=== PATIENT | female | born 1965 | race African-American/Black ===

== ENCOUNTER 2018-05-31 10:53 | Inpatient (IN) | payer OTHER ==
[2018-05-31 11:27] VITALS: BMI 26.8
--- NOTE | 2018-05-31 13:35 | HP ---
CIWA Score Nausea/Vomitin-No Nausea/No Vomiting Muscle Tremors: 2 Anxiety: 3 Agitation: 0-Normal Activity Paroxysmal Sweats: No Perspiration Orientation: 0-Oriented Tacttile Disturbances: 1-Very Mild Itch/Numbness Auditory Disturbances: 0-None Visual Disturbances: 0-None Headache: 4-Moderately Severe (rates pain as " alot of pain") CIWA-Ar Total Score: 10 - Admission Criteria OASAS Guidelines: Admission for Medically Managed Detox: Requires at least one of the followin. CIWA greater than 12 2. Seizures within the past 24 hours 3. Delirium tremens within the past 24 hours 4. Hallucinations within the past 24 hours 5. Acute intervention needed for co occurring medical disorder 6. Acute intervention needed for co occurring psychiatric disorder 7. Severe withdrawal that cannot be handled at a lower level of care (continued vomiting, continued diarrhea, abnormal vital signs) requiring intravenous medication and/or fluids 8. Patient presents the following: Acute intervention needed for co-occurring med or psych disorder Admission Criteria Met: Admission criteria met Admission ROS [facility] Chief Complaint: " alcohol detox" Allergies/Adverse Reactions: Allergies Allergy/AdvReac Type Severity Reaction Status Date / Time aspirin Allergy Severe Hives Verified 05/31/18 12:03 History of Present Illness: 52 yo female wit hx of alcohol, crack /cocaine and marijuana dependence is here seeking alcohol detox. PMHX: fx right leg (2018), DM II, Hyperlipidemia, asthma. Psych: depression, PTSD. Reports was abstinent for two years and relapsed this past March 2018. utox positive for THC, BERRY, BZO, denies use of bzo or recently hospitalization or emergency room visit. Exam Limitations: No Limitations - Ebola screening Have you traveled outside of the country in the last 21 days: No Have you had contact with anyone from an Ebola affected area: No Have you been sick,other than usual withdrawal symptoms: No Do you have a fever: No - Review of Systems Constitutional: Loss of Appetite, Changes in sleep, Weakness, Unintentional Wgt. Loss (11 lbs lost past 2- 3 weeks), Other (fatigue) EENT: reports: Nose Congestion, Other (glaucoma right eye) Respiratory: reports: No Symptoms reported Cardiac: reports: No Symptoms Reported GI: reports: No Symptoms Reported : reports: No Symptoms Reported Musculoskeletal: reports: Back Pain (low back pain), Joint Pain (right LE d/t old fx to (r) tibia) Integumentary: reports: No Symptoms Reported Neuro: reports: Headache Endocrine: reports: Increased Thirst Hematology: reports: No Symptoms Reported Psychiatric: reports: Orientated x3, Anxious Other Systems: Reviewed and Negative Patient History - Patient Medical History Hx Anemia: No Hx Asthma: Yes Hx Chronic Obstructive Pulmonary Disease (COPD): No Hx Cancer: No Hx Cardiac Disorders: No Hx Congestive Heart Failure: No Hx Hypertension: No Hx Hypercholesterolemia: No Hx Pacemaker: No HX Cerebrovascular Accident: No Hx Seizures: No Hx Dementia: No Hx Diabetes: Yes Hx Gastrointestinal Disorders: No Hx Liver Disease: No Hx Genitourinary Disorders: No Hx Sexually Transmitted Disorders: Yes (herpes 89 was treated, syphillis 1991 was treated.) Hx Renal Disease (ESRD): No Hx Thyroid Disease: No Hx Human Immunodeficiency Virus (HIV): No Hx Hepatitis C: No Hx Depression: Yes Hx Suicide Attempt: Yes (last attempt 2012 , hospitalized , now medicated ) Hx Bipolar Disorder: No Hx Schizophrenia: No - Patient Surgical History Past Surgical History: Yes Hx Neurologic Surgery: No Hx Cataract Extraction: No Hx Cardiac Surgery: No Hx Lung Surgery: Yes (collapsed lung 4x, last experience and surgery 2007) Hx Breast Surgery: No Hx Breast Biopsy: No Hx Abdominal Surgery: No Hx Appendectomy: No Hx Cholecystectomy: No Hx Genitourinary Surgery: No Hx Section: Yes (Fx right tibia June 2017) Hx Orthopedic Surgery: Yes (both feet bunions.) Anesthesia Reaction: No - PPD History Previous Implant?: No (Treated for TB 1996 tx with INH x 9 months, NEG Chest xray 2014) Documented Results: Positive w/o proof PPD to be Administered?: No - Reproductive History Patient is a Female of Child Bearing Age (11 -55 yrs old): Yes Last Menstrual Period: 09/16/14 Patient : No - Smoking Cessation Smoking history: Former smoker Have you smoked in the past 12 months: Yes Aproximately how many cigarettes per day: 5 If you are a former smoker, when did you quit?: 2018 Hx Chewing Tobacco Use: No Initiated information on smoking cessation: No - Substance & Tx. History Hx Alcohol Use: Yes Hx Substance Use: Yes Substance Use Type: Alcohol, Cocaine Hx Substance Use Treatment: Yes (Last detox September 2014) - Substances Abused Alcohol Route: Oral Frequency: Daily Amount used: 2 + 1/2 pt. liquor Age of first use: 14 Date of Last Use: 05/31/18 Crack Route: Inhalation Frequency: Daily Amount used: $200 per day Age of first use: 16 Date of Last Use: 05/31/18 Marijuana/Hashish Route: Smoking Frequency: Daily Amount used: $20 Age of first use: 14 Date of Last Use: 05/31/18 Family Disease History - Family Disease History Family Disease History: Other: Brother ( kidney failure ) Admission Physical Exam [facility] - Vital Signs Vital Signs: Vital Signs - 24 hr 05/31/18 11:25 Temperature 97.7 F Pulse Rate 92 H Respiratory 20 Rate Blood Pressure 134/84 - Physical General Appearance: Yes: Appropriately Dressed, Mild Distress, Anxious HEENTM: Yes: EOMI, Hearing grossly Normal, Normal ENT Inspection, Pharynx Normal , Tm's normal Respiratory: Yes: Chest Non-Tender, Lungs Clear, Normal Breath Sounds, No Respiratory Distress Neck: Yes: Within Normal Limits Breast: Yes: Breast Exam Deferred Cardiology: Yes: Regular Rhythm, Regular Rate Abdominal: Yes: Normal Bowel Sounds, Non Tender, Soft, Protuberent Genitourinary: Yes: Within Normal Limits Back: Yes: Normal Inspection Musculoskeletal: Yes: full range of Motion, Gait Steady, Pelvis Stable, Back pain, Other (uses cane) Extremities: Yes: Normal Capillary Refill, Normal Inspection, Normal Range of Motion, Non-Tender Neurological: Yes: 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, Fully Oriented, Alert, Motor Strength 5/5, Depressed Affect Integumentary: Yes: Normal Color, Warm, Diaphoresis Lymphatic: Yes: Within Normal Limits - Diagnostic (1) Alcohol dependence with withdrawal Current Visit: Yes Status: Acute Qualifiers: Complication of substance-induced condition: uncomplicated Qualified Code(s ): F10.230 - Alcohol dependence with withdrawal, uncomplicated (2) Use of cane as ambulatory aid Current Visit: Yes Status: Chronic (3) Type 2 diabetes mellitus without complications Current Visit: Yes Status: Chronic Qualifiers: Diabetes mellitus group home insulin use: without group home use Qualified Code(s): E11.9 - Type 2 diabetes mellitus without complications (4) Glaucoma Current Visit: Yes Status: Chronic Qualifiers: Open angle glaucoma type: unspecified type (5) Asthma Current Visit: Yes Status: Chronic Qualifiers: Asthma complication type: unspecified (6) Cocaine dependence Current Visit: Yes Status: Chronic Cleared for Admission [facility] - Detox or Rehab [facility] Level of Care: Medically Managed Detox Regimen/Protocol: Librium BHS Breath Alcohol Content Breath Alcohol Content: 0 Urine Pregancy Test - Result Urine Test Results: Negative - NO line present Urine Drug Screen - Results Drug Screen Negative: No Urine Drug Screen Results: THC-Marijuana, BERRY-Cocaine, BZO-Benzodiazepines Inpatient Rehab Admission - Rehab Decision to Admit Inpatient rehab admission?: No
[2018-05-31] MEDS ORDERED: MAG HYDROX/AL HYDROX/SIMETH 30 ML UNIT-DOSE CUP PO PRN (13:48)
[2018-05-31] MEDS ORDERED: MAGNESIUM HYDROX 2400MG/30ML ORAL SUSPENSION 30 ML CUP PO PRN (13:48)
[2018-05-31] MEDS ORDERED: MAGNESIUM CITRATE 300 ML BOTTLE PO PRN (13:48)
[2018-05-31] MEDS ORDERED: chlordiazePOXIDE HCL 25 MG CAPSULE PO PRN (13:48)
[2018-05-31] MEDS ORDERED: hydrOXYzine PAMOATE 25 MG CAPSULE (FP) PO PRN (13:48)
[2018-05-31] MEDS ORDERED: MENTHOL/PHENOL 1 EACH UD MM PRN (13:48)
[2018-05-31] MEDS ORDERED: ACETAMINOPHEN 325 MG TABLET (FP) PO PRN (13:48)
[2018-05-31] MEDS: chlordiazePOXIDE HCL 25 MG CAPSULE PO SCH ×2 (16:29→22:16)
[2018-05-31] MEDS: ACETAMINOPHEN 325 MG TABLET (FP) PO PRN ×2 (16:29→22:17)
[2018-05-31] MEDS ORDERED: metFORMIN HCL 500 MG TABLET (FP) PO SCH (17:45)
[2018-05-31] MEDS: metFORMIN HCL 500 MG TABLET (FP) PO SCH (18:46)
[2018-05-31] MEDS: IBUPROFEN 400 MG TABLET (FP) PO PRN (21:30)
[2018-05-31] MEDS: THIAMINE HCL 100 MG TABLET (FP) PO SCH (22:16)
[2018-05-31] MEDS: MELATONIN 5 MG TABLETS PO PRN (22:19)
--- NOTE | 2018-05-31 22:42 | PN ---
S Progress Note Note: Patient complained of tooth ache Vital Signs Temperature 98 F 05/31/18 21:04 Pulse Rate 85 05/31/18 21:04 Respiratory Rate 16 05/31/18 21:04 Blood Pressure 127/73 05/31/18 21:04 O2 Sat by Pulse Oximetry (%) Action: Lidocaine 2% viscous 20mL MM TID prn ordered
[2018-05-31] MEDS: LIDOCAINE VISCOUS 2% ORAL/TOP 20 ML UNIT-DOSE CUP MM PRN (23:03)
[2018-06-01] MEDS: chlordiazePOXIDE HCL 25 MG CAPSULE PO SCH ×4 (05:13→22:08)
[2018-06-01] MEDS: ACETAMINOPHEN 325 MG TABLET (FP) PO PRN ×3 (05:14→21:40)
[2018-06-01] MEDS: LIDOCAINE VISCOUS 2% ORAL/TOP 20 ML UNIT-DOSE CUP MM PRN (05:15)
[2018-06-01] MEDS: metFORMIN HCL 500 MG TABLET (FP) PO SCH ×2 (07:31→17:11)
[2018-06-01] MEDS: IBUPROFEN 400 MG TABLET (FP) PO PRN (08:23)
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
[2018-06-01] MEDS: METHOCARBAMOL 500 MG TABLET PO PRN ×3 (10:08→21:42)
[2018-06-01] MEDS: PRENATAL VITAMINS W/ FOLIC ACID TABLET (FP) PO SCH (10:08)
--- NOTE | 2018-06-01 11:03 | EKG ---
Test Reason : Blood Pressure : / mmHG Vent. Rate : 083 BPM Atrial Rate : 083 BPM P-R Int : 152 ms QRS Dur : 092 ms QT Int : 410 ms P-R-T Axes : 081 061 041 degrees QTc Int : 481 ms NORMAL SINUS RHYTHM POSSIBLE LEFT ATRIAL ENLARGEMENT INCOMPLETE RIGHT BUNDLE BRANCH BLOCK PROLONGED QT ABNORMAL ECG NO PREVIOUS ECGS AVAILABLE Confirmed by GLENNA STEPHENS MD ([id number]) on 06/01/2018 11:02:40 AM Referred By: Confirmed By:GLENNA STEPHENS MD
[2018-06-01 11:12] LABS: HEMATOCRIT 37.2 % (32.4-45.2); HEMOGLOBIN 12.9 GM/dL (10.7-15.3); MCH 28.7 pg (25.7-33.7); MCHC 34.7 g/dl (32.0-36.0); MEAN CELL VOLUME 82.7 fl (80-96); PLATELET COUNT 414 K/MM3 (134-434); RBC 4.49 M/mm3 (3.60-5.2); RDW 14.6 % (11.6-15.6); WHITE BLOOD COUNT 9.8 K/mm3 (4.0-10.0)
--- NOTE | 2018-06-01 11:39 | PN ---
S CIWA - CIWA Score Nausea/Vomitin-No Nausea/No Vomiting Muscle Tremors: 1-None Visible, but [place] Anxiety: 2 Agitation: 1-Slight > Activity Paroxysmal Sweats: 1-Minimal Palms Moist Orientation: 1-Uncertain about Date Tacttile Disturbances: 0-None Auditory Disturbances: 0-None Visual Disturbances: 0-None Headache: 2-Mild CIWA-Ar Total Score: 8 BHS Progress Note (SOAP) Subjective: denies tooth ache, chew regular food patient is doing well with the alcohol detox regimen Objective: 06/01/18 11:40 Vital Signs Temperature 97.4 F L 06/01/18 10:07 Pulse Rate 68 06/01/18 10:07 Respiratory Rate 18 06/01/18 10:07 Blood Pressure 102/63 06/01/18 10:07 O2 Sat by Pulse Oximetry (%) Laboratory Last Values WBC 9.8 K/mm3 (4.0-10.0) 06/01/18 06:30 RBC 4.49 M/mm3 (3.60-5.2) 06/01/18 06:30 Hgb 12.9 GM/dL (10.7-15.3) 06/01/18 06:30 Hct 37.2 % (32.4-45.2) 06/01/18 06:30 MCV 82.7 fl (80-96) 06/01/18 06:30 MCH 28.7 pg (25.7-33.7) 06/01/18 06:30 MCHC 34.7 g/dl (32.0-36.0) 06/01/18 06:30 RDW 14.6 % (11.6-15.6) 06/01/18 06:30 Plt Count 414 K/MM3 (134-434) 06/01/18 06:30 MPV 9.0 fl (7.5-11.1) 06/01/18 06:30 POC Glucometer 112 UNITS (80-120) 06/01/18 05:13 lab noted Assessment: 06/01/18 11:40 alcohol withdrawal sx Plan: continue detox
[2018-06-01 12:09] LABS: RPR REACTIVE 1:1 (NONREACTIVE)
[2018-06-01 12:11] LABS: TREPONEMA ANTIBODY PREVIOUSLY REACTIVE (NONREACTIVE)
[2018-06-01] MEDS: FLUoxetine HCL 10 MG CAPSULE (FP) PO SCH (12:43)
[2018-06-01 12:48] LABS: ALK PHOS 91 U/L (45-117); BILIRUBIN,TOTAL 0.4 mg/dL (0.2-1); CALCIUM 9.4 mg/dL (8.5-10.1); CHLORIDE 101 mmol/L (98-107); CREATININE 0.9 mg/dL (0.55-1.3); POTASSIUM 3.7 mmol/L (3.5-5.1); SGPT/ALT 17 U/L (13-61); SODIUM 136 mmol/L (136-145)
[2018-06-01 13:44] LABS: ALBUMIN 3.8 g/dl (3.4-5.0); ANION GAP 7 MMOL/L (8-16); BLOOD UREA NITROGEN 12 mg/dL (7-18); CO2 28 mmol/L (21-32); GLUCOSE,RANDOM 147 mg/dL (74-106); SGOT/AST 15 U/L (15-37)
[2018-06-01] MEDS: CLOTRIMAZOLE 1% VAGINAL CREAM WITH APPLICATOR 45 GM TUBE VG SCH (22:08)
[2018-06-01] MEDS: THIAMINE HCL 100 MG TABLET (FP) PO SCH (22:08)
[2018-06-01] MEDS: MIRTAZAPINE 15 MG TABLET (FP) PO SCH (22:08)
[2018-06-01] MEDS: MELATONIN 5 MG TABLETS PO PRN (22:09)
[2018-06-02] MEDS: chlordiazePOXIDE HCL 25 MG CAPSULE PO SCH ×2 (06:14→10:16)
[2018-06-02] MEDS: metFORMIN HCL 500 MG TABLET (FP) PO SCH ×2 (07:00→17:40)
[2018-06-02] MEDS: FLUoxetine HCL 10 MG CAPSULE (FP) PO SCH (10:16)
[2018-06-02] MEDS: PRENATAL VITAMINS W/ FOLIC ACID TABLET (FP) PO SCH (10:16)
[2018-06-02] MEDS: ACETAMINOPHEN 325 MG TABLET (FP) PO PRN (10:17)
--- NOTE | 2018-06-02 15:50 | PN ---
S CIWA - CIWA Score Nausea/Vomitin Muscle Tremors: None Anxiety: 2 Agitation: 0-Normal Activity Paroxysmal Sweats: No Perspiration Orientation: 0-Oriented Tacttile Disturbances: 2-Mild Itch/Numbness/Burn Auditory Disturbances: 0-None Visual Disturbances: 2-Mild Sensitivity Headache: 0-None Present CIWA-Ar Total Score: 9 BHS Progress Note (SOAP) Subjective: Tremors, Fatigue, Nausea. Objective: PATIENT A & O X 3. IN NO ACUTE DISTRESS. 06/02/18 15:51 Vital Signs Temperature 98 F 06/02/18 13:45 Pulse Rate 97 H 06/02/18 13:45 Respiratory Rate 16 06/02/18 13:45 Blood Pressure 106/76 06/02/18 13:45 O2 Sat by Pulse Oximetry (%) Laboratory Tests 05/31/18 06/01/18 06/01/18 16:20 05:13 06:30 WBC 9.8 RBC 4.49 Hgb 12.9 Hct 37.2 MCV 82.7 MCH 28.7 MCHC 34.7 RDW 14.6 Plt Count 414 MPV 9.0 Sodium Potassium Chloride Carbon Dioxide Anion Gap BUN Creatinine Creat Clearance w eGFR POC Glucometer 120 112 Random Glucose Calcium Total Bilirubin AST ALT Alkaline Phosphatase Total Protein Albumin RPR Titer T.pallidum Ab (MHA) 06/01/18 06/01/18 06/01/18 06:30 06:30 16:29 WBC RBC Hgb Hct MCV MCH MCHC RDW Plt Count MPV Sodium 136 Potassium 3.7 Chloride 101 Carbon Dioxide 28 Anion Gap 7 L BUN 12 Creatinine 0.9 Creat Clearance w eGFR 66.01 POC Glucometer 148 Random Glucose 147 H Calcium 9.4 Total Bilirubin 0.4 AST 15 ALT 17 Alkaline Phosphatase 91 Total Protein 8.0 Albumin 3.8 RPR Titer Reactive 1:1 H T.pallidum Ab (MHA) Previously reactive 06/02/18 06:11 WBC RBC Hgb Hct MCV MCH MCHC RDW Plt Count MPV Sodium Potassium Chloride Carbon Dioxide Anion Gap BUN Creatinine Creat Clearance w eGFR POC Glucometer 135 Random Glucose Calcium Total Bilirubin AST ALT Alkaline Phosphatase Total Protein Albumin RPR Titer T.pallidum Ab (MHA) LABS NOTED. RPR RESULT NOTED TO BE REACTIVE 1:1; MHATP: PREVIOUSLY REACTIVE. ON ADMISSION, PATIENT REPORTED THAT SHE COMPLETED A COURSE OF ANTIBIOTIC TREATMENT FOR SYPHILIS IN THE PAST. 06/02/18 15:52 Assessment: 06/02/18 15:54 WITHDRAWAL SYMPTOMS. Plan: CONTINUE DETOX.
[2018-06-02] MEDS ORDERED: chlordiazePOXIDE HCL 10 MG CAPSULE PO PRN (17:00)
[2018-06-02] MEDS: chlordiazePOXIDE HCL 10 MG CAPSULE PO SCH ×2 (17:40→22:11)
[2018-06-02] MEDS: THIAMINE HCL 100 MG TABLET (FP) PO SCH (22:11)
[2018-06-02] MEDS: MIRTAZAPINE 15 MG TABLET (FP) PO SCH (22:11)
[2018-06-02] MEDS: CLOTRIMAZOLE 1% VAGINAL CREAM WITH APPLICATOR 45 GM TUBE VG SCH (22:12)
[2018-06-03] MEDS: chlordiazePOXIDE HCL 10 MG CAPSULE PO SCH ×3 (05:49→17:46)
[2018-06-03] MEDS: metFORMIN HCL 500 MG TABLET (FP) PO SCH ×2 (07:57→17:46)
[2018-06-03] MEDS: FLUoxetine HCL 10 MG CAPSULE (FP) PO SCH (10:22)
[2018-06-03] MEDS: PRENATAL VITAMINS W/ FOLIC ACID TABLET (FP) PO SCH (10:22)
--- NOTE | 2018-06-03 15:40 | PN ---
BHS Progress Note (SOAP) Subjective: Fatigue, Anxious. Objective: PATIENT A & O X 3, OBSERVED AMBULATING ON UNIT. IN NO ACUTE DISTRESS. 06/03/18 15:36 Vital Signs Temperature 98.4 F 06/03/18 13:42 Pulse Rate 75 06/03/18 13:42 Respiratory Rate 18 06/03/18 13:42 Blood Pressure 119/70 06/03/18 13:42 O2 Sat by Pulse Oximetry (%) Laboratory Tests 05/31/18 06/01/18 06/01/18 16:20 05:13 06:30 WBC 9.8 RBC 4.49 Hgb 12.9 Hct 37.2 MCV 82.7 MCH 28.7 MCHC 34.7 RDW 14.6 Plt Count 414 MPV 9.0 Sodium Potassium Chloride Carbon Dioxide Anion Gap BUN Creatinine Creat Clearance w eGFR POC Glucometer 120 112 Random Glucose Calcium Total Bilirubin AST ALT Alkaline Phosphatase Total Protein Albumin RPR Titer T.pallidum Ab (MHA) 06/01/18 06/01/18 06/01/18 06:30 06:30 16:29 WBC RBC Hgb Hct MCV MCH MCHC RDW Plt Count MPV Sodium 136 Potassium 3.7 Chloride 101 Carbon Dioxide 28 Anion Gap 7 L BUN 12 Creatinine 0.9 Creat Clearance w eGFR 66.01 POC Glucometer 148 Random Glucose 147 H Calcium 9.4 Total Bilirubin 0.4 AST 15 ALT 17 Alkaline Phosphatase 91 Total Protein 8.0 Albumin 3.8 RPR Titer Reactive 1:1 H T.pallidum Ab (MHA) Previously reactive 06/02/18 06/02/18 06/03/18 06:11 16:20 05:47 WBC RBC Hgb Hct MCV MCH MCHC RDW Plt Count MPV Sodium Potassium Chloride Carbon Dioxide Anion Gap BUN Creatinine Creat Clearance w eGFR POC Glucometer 135 107 125 Random Glucose Calcium Total Bilirubin AST ALT Alkaline Phosphatase Total Protein Albumin RPR Titer T.pallidum Ab (MHA) LABS NOTED. Assessment: 06/03/18 15:37 WITHDRAWAL SYMPTOMS. Plan: CONTINUE DETOX. RESULTS OF ADMISSION CXR (FOR HISTORY OF POSITIVE PPD) NOTED. NO ACUTE PROCESS NOTED; HOWEVER, CHRONIC DEGENERATIVE CHANGES NOTED. PATIENT MADE AWARE OF RESULTS AND ADVISED TO FOLLOW-UP WITH [facility] SPECIALIST WHEN POSSIBLE AFTER DISCHARGE FROM DETOX FOR FURTHER MEDICAL; EVALUATION. PATIENT VERBALIZED UNDERSTANDING OF RECOMMENDATION. COPY OF CXR RESULTS REPORTS GIVEN TO PATIENT TO TAKE WITH HER. PATIENT SCHEDULED FOR D/C TOMORROW.
[2018-06-03] MEDS: THIAMINE HCL 100 MG TABLET (FP) PO SCH (22:14)
[2018-06-03] MEDS: MELATONIN 5 MG TABLETS PO PRN (22:14)
[2018-06-03] MEDS: MIRTAZAPINE 15 MG TABLET (FP) PO SCH (22:14)
[2018-06-03] MEDS: CLOTRIMAZOLE 1% VAGINAL CREAM WITH APPLICATOR 45 GM TUBE VG SCH (22:15)
[2018-06-04] MEDS: ACETAMINOPHEN 325 MG TABLET (FP) PO PRN (05:45)
[2018-06-04] MEDS: chlordiazePOXIDE HCL 10 MG CAPSULE PO SCH (05:45)
[2018-06-04] MEDS: LIDOCAINE VISCOUS 2% ORAL/TOP 20 ML UNIT-DOSE CUP MM PRN (05:46)
[2018-06-04 06:24] VITALS: BP 118/69; PULSE 66; TEMP 97.9
[2018-06-04] MEDS: metFORMIN HCL 500 MG TABLET (FP) PO SCH (07:19)
--- NOTE | 2018-06-04 09:54 | DS ---
[facility] Detox Discharge Summary Admission Date: 05/31/18 Discharge Date: 06/04/18 - History Present History: Alcohol Dependence Additional Comments: 52 years old female admitted on 05/31/18 for alcohol withdrawal stabilization completed detox regimen [facility] Pertinent Past History: keep medication list in wallet medication adherence update medication list when change medication bring in medication list and lab results to follow up care - Physical Exam Results Vital Signs: Vital Signs Temperature 97.9 F 06/04/18 06:24 Pulse Rate 66 06/04/18 06:24 Respiratory Rate 18 06/04/18 06:28 Blood Pressure 118/69 06/04/18 06:24 O2 Sat by Pulse Oximetry (%) Pertinent Admission Physical Exam Findings: alcohol withdrawal sx Laboratory Last Values WBC 9.8 K/mm3 (4.0-10.0) 06/01/18 06:30 RBC 4.49 M/mm3 (3.60-5.2) 06/01/18 06:30 Hgb 12.9 GM/dL (10.7-15.3) 06/01/18 06:30 Hct 37.2 % (32.4-45.2) 06/01/18 06:30 MCV 82.7 fl (80-96) 06/01/18 06:30 MCH 28.7 pg (25.7-33.7) 06/01/18 06:30 MCHC 34.7 g/dl (32.0-36.0) 06/01/18 06:30 RDW 14.6 % (11.6-15.6) 06/01/18 06:30 Plt Count 414 K/MM3 (134-434) 06/01/18 06:30 MPV 9.0 fl (7.5-11.1) 06/01/18 06:30 Sodium 136 mmol/L (136-145) 06/01/18 06:30 Potassium 3.7 mmol/L (3.5-5.1) 06/01/18 06:30 Chloride 101 mmol/L (98-107) 06/01/18 06:30 Carbon Dioxide 28 mmol/L (21-32) 06/01/18 06:30 Anion Gap 7 MMOL/L (8-16) L 06/01/18 06:30 BUN 12 mg/dL (7-18) 06/01/18 06:30 Creatinine 0.9 mg/dL (0.55-1.3) 06/01/18 06:30 Creat Clearance w eGFR 66.01 (>60) 06/01/18 06:30 POC Glucometer 160 UNITS (80-120) 06/04/18 05:44 Random Glucose 147 mg/dL (74-106) H 06/01/18 06:30 Calcium 9.4 mg/dL (8.5-10.1) 06/01/18 06:30 Total Bilirubin 0.4 mg/dL (0.2-1) 06/01/18 06:30 AST 15 U/L (15-37) 06/01/18 06:30 ALT 17 U/L (13-61) 06/01/18 06:30 Alkaline Phosphatase 91 U/L (45-117) 06/01/18 06:30 Total Protein 8.0 g/dl (6.4-8.2) 06/01/18 06:30 Albumin 3.8 g/dl (3.4-5.0) 06/01/18 06:30 RPR Titer Reactive 1:1 (NONREACTIVE) H 06/01/18 06:30 T.pallidum Ab (MHA) Previously reactive (NONREACTIVE) 06/01/18 06:30 lab noted - Treatment Hospital Course: Detox Protocol Followed, Detoxed Safely, Responded well, Discharged Condition Good, Rehab Referral Accepted Patient has Accepted a Rehab Referral to: [facility] - Medication Discharge Medications: Ambulatory Orders Fluoxetine HCl [Prozac -] 20 mg PO DAILY 10/10/14 Mirtazapine [Remeron -] 15 mg PO DAILY 05/31/18 metFORMIN HCL [Metformin HCl] 500 mg PO BID 30 Days #60 tablet 06/03/18 - Diagnosis (1) Asthma Status: Chronic Qualifiers: Asthma severity: mild Asthma persistence: intermittent Asthma complication type: with status asthmaticus Qualified Code(s): J45.22 - Mild intermittent asthma with status asthmaticus (2) Substance induced mood disorder Status: Suspected (3) Alcohol dependence with withdrawal Status: Acute Qualifiers: Complication of substance-induced condition: uncomplicated Qualified Code(s ): F10.230 - Alcohol dependence with withdrawal, uncomplicated (4) Use of cane as ambulatory aid Status: Chronic (5) Type 2 diabetes mellitus without complications Status: Chronic Qualifiers: 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
== END 2018-06-04 09:41 | disposition home or self-care (01) | DRG 774 ==
LOC: YASAS 10:53 → Y3N 14:00
PROVIDERS: ADMIT Surgery; ATTEND Surgery
PROC: HZ2ZZZZ Detoxification Services for Substance Abuse Treatment (ICD-10-PCS; principal; 2018-05-31)
DX: F10.230 Alcohol dependence with withdrawal, uncomplicated (principal); F14.20 Cocaine dependence, uncomplicated; F19.24 Other psychoactive substance dependence with psychoactive substance-induced mood disorder; F19.282 Other psychoactive substance dependence with psychoactive substance-induced sleep disorder; F32.9 Major depressive disorder, single episode, unspecified; H40.9 Unspecified glaucoma; R26.89 Other abnormalities of gait and mobility; E11.9 Type 2 diabetes mellitus without complications; Z79.84 Long term (current) use of oral hypoglycemic drugs; M54.5 Low back pain; Z99.89 Dependence on other enabling machines and devices; Z86.19 Personal history of other infectious and parasitic diseases; Z91.5 Personal history of self-harm; Z59.0 Homelessness
CPT/HCPCS: 36415; 71046-TC-FY; 80053; 82962; 85027; 86593; 86780; 93005; 93010

== ENCOUNTER 2019-12-28 11:06 | Inpatient (IN) | payer OTHER ==
--- OUTSIDE RECORDS SUMMARY | 2019-12-28 11:13 | XMS ---
:1965 Author Organization [facility] Care Team Providers Name Role Phone Carolann Jean (R) Unavailable SHANE Unavailable Unavailable KAMINSKI Unavailable Unavailable NURSING, FM Unavailable Unavailable KELLIE, (R) Unavailable Unavailable Aminta Unavailable Aska Unavailable Moreland Unavailable Moreland Unavailable Brayman Unavailable RADOCCHIO Unavailable Unavailable DENTAL Unavailable Unavailable ANDREW-LORA Unavailable Unavailable Yapor Unavailable Re-disclosure Warning The records that you are about to access may contain information from federally- assisted alcohol or drug abuse programs. If such information is present, then the following federally mandated warning applies: This information has been disclosed to you from records protected by federal confidentiality rules (42 CFR part 2). The federal rules prohibit you from making any further disclosure of this information unless further disclosure is expressly permitted by the written consent of the person to whom it pertains or as otherwise permitted by 42 CFR part 2. A general authorization for the release of medical or other information is NOT sufficient for this purpose. The Federal rules restrict any use of the information to criminally investigate or prosecute any alcohol or drug abuse patient.The records that you are about to access may contain highly sensitive health information, the redisclosure of which is protected by Article 27-F of the [facility] Public Health law. If you continue you may haveaccess to information: Regarding HIV / AIDS; Provided by facilities licensed or operated by the [facility] Office of Mental Health; or Provided by the [facility] Office for People With Developmental Disabilities. If such information is present, then the following [facility] mandated warning applies: This information has been disclosed to you from confidential records which are protected by state law. State law prohibits you from making any further disclosure of this information without the specific written consent of the person to whom it pertains, or as otherwise permitted by law. Any unauthorized further disclosure in violation of state law may result in a fine or [place] health care facility sentence or both. A general authorization for the release of medical or other information is NOT sufficient authorization for further disclosure. Allergies and Adverse Reactions Type Description Substance Reaction Status Data Source(s ) DRUG INGREDI ASPIRIN DL-LYSINE ASPIRIN DL-LYSINE [facility] DRUG ASPIRIN ASPIRIN [facility] Encounters Encounter Providers Location Date Indications Data Source(s ) Outpatient Attender: Isabel [facility] [facility] EDT Patient admitted. Outpatient Attender: OFELIA 12/26/2019 09:14:20 AM [facility] Patient admitted. Outpatient Attender: BILLIE LYNN 12/16/2019 02:07:33 PM The [facility] Patient admitted. Outpatient Attender: Lexi 12/11/2019 12:00:00 AM The [facility] - 12/11/2019 [facility] 10:53:13 AM EDT Patient admitted. Outpatient Attender: BILLIE LYNN 12/09/2019 12:00:00 AM The [facility] - 12/09/2019 [facility] ealt 02:29:44 PM EDT Patient admitted. Outpatient Attender: Lexi 12/03/2019 03:02:53 PM The [facility] Patient admitted. Outpatient Attender: Lexi 12/03/2019 12:00:00 AM The [facility] Patient admitted. Outpatient Attender: BEV JONES 11/26/2019 12:00:00 AM The [facility] - 11/26/2019 12:39:14 [facility] EDT Patient admitted. Outpatient Attender: Luma Moreland 11/21/2019 12:00:00 AM The [facility] Patient admitted. Outpatient Attender: BILLIE LYNN 11/18/2019 02:13:18 PM The [facility] Patient admitted. Outpatient Attender: BILLIE LYNN 11/11/2019 12:00:00 AM The [facility] - 11/11/2019 [facility] ealt 02:29:54 PM EDT Patient admitted. Outpatient Attender: BILLIE LYNN 11/04/2019 02:12:52 PM The [facility] Patient admitted. Outpatient Attender: Lexi 10/29/2019 12:00:00 AM The [facility] - 10/29/2019 [facility] ealt 04:39:27 PM EDT Patient admitted. Outpatient Attender: Lexi 10/29/2019 12:00:00 AM The [facility] Patient admitted. Outpatient Attender: BILLIE LYNN 10/28/2019 12:00:00 AM The [facility] Patient admitted. Outpatient Attender: Isabel 10/24/2019 12:00:00 AM The [facility]: [facility] DENTAL Patient admitted. Outpatient Attender: Lexi 10/22/2019 01:05:20 PM The [facility] Patient admitted. Outpatient Attender: Lexi 10/22/2019 12:00:00 AM The [facility] Patient admitted. Outpatient Attender: BILLIE LYNN 10/21/2019 01:42:35 PM The [facility] Patient admitted. Outpatient Attender: Frederick Greene 10/11/2019 12:00:00 AM The [facility] - 10/11/2019 [facility] ealt 12:31:17 PM EDT Patient admitted. Outpatient Attender: Lexi 10/04/2019 12:00:00 AM The [facility] Patient admitted. Outpatient Attender: BILLIE LYNN 09/30/2019 12:00:00 AM The [facility] 2019 [facility] ealt 11:17:55 AM EDT Patient admitted. Outpatient Attender: Isabel Layne 09/12/2019 12:00:00 AM The [facility] Patient admitted. Outpatient Attender: BILLIE LYNN 09/09/2019 02:43:35 PM The [facility] Patient admitted. Outpatient Attender: BILLIE LYNN 09/02/2019 12:00:00 AM The [facility] Patient admitted. Outpatient Attender: Lexi 08/29/2019 10:26:12 AM The [facility] Patient admitted. Outpatient Attender: Lexi 08/29/2019 12:00:00 AM The [facility] Patient admitted. Outpatient Attender: Lexi 08/28/2019 12:00:00 AM [facility] - 08/28/2019 [facility] 09:34:03 AM EDT Patient admitted. Outpatient Attender: Lexi 08/20/2019 03:06:46 PM The [facility] Patient admitted. Outpatient Attender: Lexi 08/20/2019 12:00:00 AM The [facility] Patient admitted. Outpatient Attender: BILLIE LYNN 08/19/2019 12:00:00 AM The [facility] - 08/19/2019 [facility] 02:45:51 PM EDT Patient admitted. Outpatient Attender: CHARLIE 08/18/2019 03:41:[address] [facility] Patient admitted. Outpatient Attender: BILLIE LYNN 08/12/2019 02:37:44 PM The [facility] Patient admitted. Outpatient Attender: BILLIE LYNN 08/05/2019 12:00:00 AM The [facility] - 08/05/2019 [facility] 03:21:21 PM EDT Patient admitted. Outpatient Attender: BILLIE LYNN 07/22/2019 12:00:00 AM The [facility] 07/22/2019 [facility] 03:27:17 PM EDT Patient admitted. Outpatient Attender: CHARLIE 07/21/2019 03:19:37 PM The [facility] Patient admitted. Outpatient Attender: BILLIE LYNN 07/15/2019 12:00:00 AM The [facility] Patient admitted. Outpatient Attender: BILLIE LYNN 07/08/2019 02:10:53 PM The [facility] Patient admitted. Outpatient Attender: BILLIE LYNN 07/01/2019 12:00:00 AM The [place] [facility] EDT - 07/01/2019 [facility] 10:58:59 PM EDT Patient admitted. Outpatient Attender: BILLIE LYNN 06/24/2019 12:00:00 AM The [place] [facility] EDT - 06/24/2019 [facility] 09:02:45 PM EDT Patient admitted. Outpatient Attender: BILLIE LYNN 06/17/2019 12:00:00 AM The [place] [facility] EDT - 06/17/2019 [facility] 10:57:55 PM EDT Patient admitted. Outpatient Attender: BILLIE LYNN 06/10/2019 12:00:00 AM The [facility] EDT - 06/10/2019 [facility] 08:05:20 PM EDT Patient admitted. Outpatient Attender: BILLIE LYNN 06/03/2019 12:00:00 AM The [facility] Patient admitted. Outpatient Attender: BILLIE LYNN 05/27/2019 12:00:[facility] 10:12:55 PM EDT Patient admitted. Outpatient Attender: BILLIE LYNN 05/20/2019 12:00:00 AM The [facility] EST - 05/20/2019 [facility] 03:04:52 PM EDT Patient admitted. Outpatient Attender: BILLIE LYNN 05/13/2019 12:00:00 AM The [place] [facility] EST - 05/13/2019 [facility] 04:45:07 PM EST Patient admitted. Outpatient Attender: Lexi 05/07/2019 12:00:00 AM The [facility] EST - 05/07/2019 [facility] 09:50:21 AM EST Patient admitted. Outpatient Attender: BILLIE LYNN 05/06/2019 12:00:00 AM The [place] [facility] EST - 05/07/2019 [facility] 09:44:08 AM EST Patient admitted. Outpatient Attender: BILLIE LYNN 04/22/2019 12:00:00 AM The [place] [facility] EST - 04/22/2019 [facility] 05:04:37 PM EST Patient admitted. Outpatient Attender: BILLIE LYNN 04/15/2019 01:50:21 PM The [place] [facility] EST - 04/15/2019 [facility] 11:45:34 PM EST Patient admitted. Outpatient Attender: Krista 04/13/2019 08:37:48 AM The [facility] Patient admitted. Outpatient Attender: BILLIE LYNN 04/08/2019 12:00:00 AM The [facility] 04/08/2019 [facility] ealth 09:55:04 PM EST Patient admitted. Outpatient Attender: BEV JONES 03/26/2019 12:00:00 AM The [facility] 03/26/2019 05:53:12 Family [facility] PM EST Patient admitted. Outpatient Attender: BILLIE LYNN 03/25/2019 12:00:00 AM The [facility] 03/25/2019 [facility] ealth 10:12:37 PM EST Patient admitted. Outpatient Attender: CHARLIE 03/22/2019 07:40:42 PM The [facility] Patient admitted. Outpatient Attender: Lexi 03/19/2019 03:32:[address] [facility] Patient admitted. Outpatient Attender: Lexi 03/19/2019 12:00:[address] [facility] Patient admitted. Outpatient Attender: BILLIE LYNN 03/11/2019 12:00:00 AM The [facility] 04/04/2019 [facility] ealth 08:05:03 AM EST Patient admitted. Outpatient Attender: CHARLIE 03/10/2019 03:01:41 PM The [facility] Patient admitted. Outpatient Attender: CHARLIE 03/10/2019 02:09:33 PM The [facility] Patient admitted. Attender: Carolann 03/06/2019 03:31:07 PM The [facility] Outpatient Attender: BILLIE LYNN 03/04/2019 12:00:00 AM The [facility] 03/04/2019 [facility] 04:03:06 PM EST Patient admitted. Outpatient Attender: BEV JONES 03/02/2019 02:08:39 PM The [facility] Patient admitted. Outpatient Attender: Lexi 02/26/2019 01:26:[address] [facility] Patient admitted. Outpatient Attender: BILLIE LYNN 02/25/2019 12:00:00 AM The [facility] Patient admitted. Outpatient Attender: BILLIE LYNN 02/11/2019 12:00:00 AM The [facility] - 02/11/2019 [facility] ealt 05:49:30 PM EST Patient admitted. Outpatient Attender: BEV JONES 02/06/2019 07:34:41 PM The [facility] Patient admitted. Outpatient Attender: DRAKE 02/06/2019 02:37:43 PM The [facility] h Patient admitted. Outpatient Attender: BILLIE LYNN 02/04/2019 12:00:00 AM The [facility] Patient admitted. Outpatient Attender: Lexi 02/02/2019 12:00:[address] [facility] Patient admitted. Outpatient Attender: BEV JONES 01/30/2019 04:39:44 PM The [facility] 01/30/2019 08:12:05 Family Health PM EST Patient admitted. Outpatient Attender: BILLIE LYNN 01/28/2019 04:24:12 PM The [facility] Patient admitted. Outpatient Attender: BILLIE LYNN 01/21/2019 12:00:00 AM The [facility] 01/21/2019 [facility] ealt 03:15:02 PM EST Patient admitted. Outpatient Attender: BILLIE LYNN 01/20/2019 08:04:53 AM The [facility] Patient admitted. Outpatient Attender: BEV 01/17/2019 12:00:[facility] 01/17/2019 [facility] NURSING 12:51:18 PM EST Patient admitted. Outpatient Attender: BILLIE LYNN 01/14/2019 12:00:00 AM The [facility] 01/14/2019 Family ealt 03:38:47 PM EST Patient admitted. Outpatient Attender: BILLIE LYNN 01/07/2019 12:00:00 AM The [facility] - 01/20/2019 [facility] 08:02:55 AM EST Patient admitted. Outpatient Attender: BILLIE LYNN 12/31/2018 12:00:00 AM The [facility] - 12/31/2018 [facility] 11:37:57 AM EDT Patient admitted. Immunizations Vaccine Date Status Description Data Source(s) Influenza, 11/26/2019 completed Influenza, 11/26/2019 The injectable, 12:00:00 AM Injectable,(cciiv4), [place] MDCK, EDT Quadrivalent, For Corwin bello preservative Preservative Free Health free, quadrivalent Medications Medication Brand Start Product Dose Route Administrative Pharmacy [facility] Indications Reaction Description Data Name Date Form Instructions Instructions Source(s) Mirtazapine Mirtaz 15 mg Oral active Post Take O NE The 15 MG Oral apine 2020 traumatic tablet ( 15 [place] Tablet (REMER 12:00: stress mg total) by For Family Mirtazapine ON) 15 00 AM disorder mouth daily Health (REMERON) MG EDT 15 MG Oral Oral Tab Tab Post traumatic stress disorder aripiprazole 5 Aripiprazole 5 12/11/[address] Take The MG Oral Tablet MG Oral Tab 12:00:00 AM mg trauma tic ONE [place] Aripiprazole 5 EDT stress tablet F or Family MG Oral Tab disorder (5 mg Hea lth total) by mouth daily Post traumatic stress disorder Mirtazapine Mirtazapine 10/29/2019 15 Oral aborted Post Take The 15 MG Oral (REMERON) 15 12:00:00 AM mg traumatic ONE [place] Tablet MG Oral Tab EDT stress tablet Fo r Family Mirtazapine disorder (15 mg He alth (REMERON) 15 total) MG Oral Tab by mouth daily Post traumatic stress disorder aripiprazole 5 Aripiprazole 10/29/2019 5 Oral aborted Pos t Take The MG Oral Tablet 5 MG Oral Tab 12:00:00 AM mg trau matic ONE [place] Aripiprazole 5 EDT stress tablet F or Family MG Oral Tab disorder (5 mg Hea lth total) by mouth daily Post traumatic stress disorder ammonium Ammonium 10/11/2019 active Eczema, M ix with The lactate 120 Lactate 12 % 12:00:00 AM unspecif ied vaseline [place] MG/ML Apply EDT type and apply For Fami ly Topical externally bid Health Lotion Lotion Ammonium Lactate 12 % Apply externally Lotion Eczema, unspecified type Clotrimazole clotrimazole 1 10/11/2019 active Veronika a Apply The 10 MG/ML % Apply 12:00:00 AM pedis inter digitally [place] Topical externally EDT of bid as dire cted For Family Solution external both Health clotrimazole 1 solution feet % Apply externally external solution Tinea pedis of both feet Mirtazapine Mirtazapine 05/07/2019 15 Oral active Post Take The 15 MG Oral (REMERON) 15 12:00:00 AM mg traumatic ONE [place] Tablet MG Oral Tab EST stress tablet Fo r Family Mirtazapine disorder (15 mg He alth (REMERON) 15 total) MG Oral Tab by mouth daily Post traumatic stress disorder Take ONE tablet (15 mg total) by mouth d aily aripiprazole 5 Aripiprazole 05/07/2019 5 Oral aborted Pos t Take The MG Oral Tablet 5 MG Oral Tab 12:00:00 AM mg trau matic ONE [place] Aripiprazole 5 EST stress tablet F or Family MG Oral Tab disorder (5 mg Hea lth total) by mouth daily Post traumatic stress disorder Take ONE tablet (5 mg total) by mouth da eros 24 HR buPROPion 05/07/2019 150 Oral aborted Post Take The Bupropion HCl ER, XL, 12:00:00 AM mg traumatic ONE [place] Hydrochloride (WELLBUTRIN EST stress ta blet For Family 150 MG XL) 150 MG disorder (150 mg Health Extended Oral TABLET total) Release Oral SR 24 HR by Tablet mouth buPROPion HCl daily ER, XL, (WELLBUTRIN XL) 150 MG Oral TABLET SR 24 HR Post traumatic stress disorder Take ONE tablet (150 mg total) by mouth daily Metformin metFORMIN 04/13/2019 500 Oral completed Pre-diabe zohreh Take The hydrochloride HCl 500 MG 12:00:00 AM mg ONE [place] 500 MG Oral Oral Tab EST tablet Fo r Family Tablet (500 mg Health metFORMIN HCl total) 500 MG Oral by Tab mouth 2 (two) times a day Pre-diabetes Take ONE tablet (500 mg total) by mouth 2 (two) times a day Metformin metFORMIN 03/26/2019 500 Oral completed Pre-diabe zohreh Take The hydrochloride HCl 500 MG 12:00:00 AM mg ONE [place] 500 MG Oral Oral Tab EST tablet Fo r Family Tablet (500 mg Health metFORMIN HCl total) 500 MG Oral by Tab mouth 2 (two) times a day Pre-diabetes Take ONE tablet (500 mg total) by mouth 2 (two) times a day Mirtazapine Mirtazapine 03/19/2019 15 Oral completed Post Take The 15 MG Oral (REMERON) 15 12:00:00 AM mg traumatic ONE [place] Tablet MG Oral Tab EST stress tablet Fo r Family Mirtazapine disorder (15 mg He alth (REMERON) 15 total) MG Oral Tab by mouth daily Post traumatic stress disorder Take ONE tablet (15 mg total) by mouth d aily Prazosin 1 prazosin 1 03/19/2019 1 mg Oral completed Post Take ONE The MG Oral MG Oral 12:00:00 AM traumatic ca psule [place] Capsule capsule EST stress (1 mg For Corwin bello prazosin 1 disorder total) Hea lth MG Oral by mouth capsule nightly Post traumatic stress disorder Take ONE capsule (1 mg total) by mouth n ight[place] aripiprazole Aripiprazole 03/19/2019 5 Oral completed Pos t Take The 5 MG Oral 5 MG Oral Tab 12:00:00 AM mg traumatic ONE [place] Tablet EST stress tablet For Famil y Aripiprazole disorder (5 mg He alth 5 MG Oral Tab total) by mouth daily Post traumatic stress disorder Take ONE tablet (5 mg total) by mouth da eros aripiprazole Aripiprazole 02/02/2019 5 Oral completed Pos t Take The 5 MG Oral 5 MG Oral Tab 12:00:00 AM mg traumatic ONE [place] Tablet EST stress tablet For Famil y Aripiprazole disorder (5 mg He alth 5 MG Oral Tab total) by mouth daily Post traumatic stress disorder Take ONE tablet (5 mg total) by mouth da eros Mirtazapine Mirtazapine 02/02/2019 15 Oral completed Post Take The 15 MG Oral (REMERON) 15 12:00:00 AM mg traumatic ONE [place] Tablet MG Oral Tab EST stress tablet Fo r Family Mirtazapine disorder (15 mg He alth (REMERON) 15 total) MG Oral Tab by mouth daily Post traumatic stress disorder Take ONE tablet (15 mg total) by mouth bc palacio Prazosin 1 prazosin 1 02/02/2019 1 mg Oral completed Post Take ONE The MG Oral MG Oral 12:00:00 AM traumatic ca psule [place] Capsule capsule EST stress (1 mg For Corwin talberty prazosin 1 disorder total) Hea lth MG Oral by mouth capsule nightly Post traumatic stress disorder Take ONE capsule (1 mg total) by mouth n ightlsung Cephalexin Cephalexin 01/28/2019 500 Oral completed Take The 500 MG Oral 500 MG Oral 12:00:00 AM mg 500 mg [place] Capsule Cap EST by For Family mouth Health Take 500 mg by mouth Acetaminophen acetaminophen 01/17/2019 650 Oral compl eted Right knee Take TWO The 325 MG Oral (TYLENOL) 325 12:00:00 AM mg pain, tablets [place] Tablet MG Oral tablet EST unspecified ( 650 mg For Family acetaminophen chronicity total ) Health (TYLENOL) 325 by mouth MG Oral tablet every 6 (six) hours as needed for mild pain Right knee pain, unspecified chronicity Take TWO tablets (650 mg total) by mouth every 6 (six) hours as needed for mild pain Prazosin 1 MG prazosin 1 MG 12/13/2018 active The Oral Capsule Oral capsule 12:00:00 AM [place] prazosin 1 MG EDT For Fa eguenia Oral capsule Health aripiprazole 5 Aripiprazole 5 12/13/2018 completed The MG Oral Tablet MG Oral Tab 12:00:00 AM [place] Aripiprazole 5 EDT For F amily MG Oral Tab Health Metformin metFORMIN HCl 06/03/2018 completed Metformin The hydrochloride 500 MG Oral 12:00:00 AM HCl 500 MG [place] 500 MG Oral Tab EDT For Fami ly Tablet Health metFORMIN HCl 500 MG Oral Tab Metformin HCl 500 MG Mirtazapine 15 Mirtazapine 05/31/2018 aborted daily The [place] MG Oral Tablet (REMERON) 15 MG 12:00:00 AM For Family Mirtazapine Oral Tab EDT Heal th (REMERON) 15 MG Oral Tab daily 24 HR Bupropion BuPROPion 02/10/2015 300 Oral aborted Depre ssion Take The Hydrochloride HCl 300 MG 12:00:00 AM mg ONE [place] 300 MG Extended Oral EST tablet Fo r Family Release Oral TABLET SR (300 mg Health Tablet 24 HR total) BuPROPion HCl by 300 MG Oral mouth TABLET SR 24 HR daily Depression Take ONE tablet (300 mg total) by mouth daily Aspirin 81 MG aspirin 81 MG completed daily The [place] For Delayed Release Oral EC tablet Family Health Oral Tablet aspirin 81 MG Oral EC tablet daily Insurance Providers Payer name Policy type Policy ID Covered Covered democrat's Policy P stewart / Coverage democrat ID relationship to Germ[place] Inf ormation type germain [employer] MEDICAID [id number] COMM PLAN [facility] [id number] Self [id number] [facility] [id number] Self [id number] [facility] [id number] Self [id number] HEALTHCARE [place] PLUS [id number] Self [id number] SLIDING FEE [id number] Self [id number] SLIDING FEE 000 Self 000 MEDICAID OR [id number] Self [id number] [place] [id number] Self [id number] MEDICAID OR [id number] Self [id number] [place] [id number] Self [id number] [place] [id number] Self [id number] [place] [id number] HEALTHCARE Mgd Care [place] Medicaid [id number] HEALTHCARE Mgd Care [facility] [id number] Self [id number] [facility]ARE [facility] [id number] Self [id number] HEALTHCARE [place] PLUS [id number] Self [id number] MET[place] PLUS [id number] Self [id number] [facility] [id number] SP [id number] STRGY-AFF [facility] [id number] SP [id number] STRGY-AFF Problems, Conditions, and Diagnoses Code Display Name Description Problem Type Effective Data Dates Source(s) F12.21 Cannabis use Cannabis use [id number] 02/02/2019 The disorder, moderate, disorder, moderate, 12:00:0 0 AM [place] in early remission, in early remission, EST For Family dependence dependence Health R45.851 Suicidal ideation Suicidal ideation [id number] 01/07/2019 The 12:00:00 AM [place] EDT For [facility] F17.200 Tobacco use Tobacco use [id number] 12/31/2018 The disorder, mild, disorder, mild, 12:00:00 AM Ins tit[place] abuse abuse EDT For [facility] F14.20 Cocaine use Cocaine use [id number] 12/31/2018 The disorder, moderate, disorder, moderate, 12:00:0 0 AM [place] dependence dependence EDT For [facility] 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 [id number] 12/31/2018 The stress disorder stress disorder 12:00:00 AM Ins titute EDT For [facility] F14.20 Cocaine use Cocaine use [id number] 12/31/2018 The disorder, moderate, disorder, moderate, 12:00:0 0 AM [place] dependence dependence EDT For [facility] Dental Appliance Dental Appliance Diagnosis 12/27/2019 Th e 09:25:56 AM [place] EDT For [facility] Z71.89 Other specified Other specified Diagnosis 12/26/2019 The counseling counseling 09:14:25 AM [place] EDT For [facility] R73.03 Prediabetes Prediabetes Diagnosis 12/26/2019 The 09:14:25 AM [place] EDT For [facility] Missed Appointment Missed Appointment Diagnosis 0 The 02:07:33 PM [place] EDT For [facility] Knee Pain Knee Pain Diagnosis 11/26/2019 The 09:34:01 AM [place] EDT For [facility] Forms Forms Diagnosis 11/26/2019 The 09:34:01 AM [place] EDT For [facility] Physical Physical Diagnosis 11/26/2019 The 09:34:01 AM [place] EDT For [facility] Other Other Diagnosis 11/26/2019 The 09:34:01 AM [place] EDT For [facility] Z23 Encounter for Encounter for Diagnosis 11/26/2019 The immunization immunization 09:34:01 AM [place] EDT For [facility] Z00.00 Encounter for Encounter for Diagnosis 11/26/2019 The general adult general adult 09:34:01 AM Institu te medical examination medical examination EDT For Family without abnormal without abnormal He alth findings findings Z53.20 Procedure and Procedure and Diagnosis 11/20/2019 The treatment not treatment not 01:53:38 PM Institu te carried out because carried out because EDT For Family of patient's of patient s Health decision for decision for unspecified reasons unspecified reasons Virtual Visit Virtual Visit Diagnosis 10/28/2019 The (Telephone Only) (Telephone Only) 03:38:53 PM I nstitute EDT For [facility] Treatment Plan Treatment Plan Diagnosis 10/28/2019 The Review Review 03:38:53 PM [place] EDT For [facility] Reschedule Reschedule Diagnosis 10/21/2019 The Appointment Appointment 01:42:35 PM [place] ED[place] For [facility] S99.929A Unspecified injury Unspecified injury Diagnosis 0 The of unspecified foot, of unspecified foot, 09:59 :20 AM [place] initial encounter initial encounter EDT For [facility] B35.3 Tinea pedis Tinea pedis Diagnosis 10/11/2019 The 09:59:20 AM [place] ED[place] For [facility] L30.9 Dermatitis, Dermatitis, Diagnosis 10/11/2019 The unspecified unspecified 09:59:20 AM [place] EDT For [facility] B35.1 Tinea unguium Tinea unguium Diagnosis 10/11/2019 The 09:59:20 AM [place] EDT For [facility] L84 Corns and Corns and Diagnosis 10/11/2019 The callosities callosities 09:59:20 AM [place] EDT For [facility] S92.901A Unspecified fracture Unspecified fracture Diagnosis 10/10 The of right foot, of right foot, 09:59:20 AM Insti nidia initial encounter initial encounter EDT For Family for closed fracture for closed fracture Health F14.20 Cocaine dependence, Cocaine dependence, Diagnosis 020 The uncomplicated uncomplicated 02:22:04 PM Institu te EDT For Family Health F12.21 Cannabis dependence, Cannabis dependence, Diagnosis 08/18 The in remission in remission 02:25:07 PM [place] EDT For Family Health F17.200 Nicotine dependence, Nicotine dependence, Diagnosis 08/18 The unspecified, unspecified, 02:24:21 PM [place] uncomplicated [facility] F14.21 Cocaine dependence, Cocaine dependence, Diagnosis 020 The in remission in remission 02:23:34 PM [place] EDT For [facility] Clinical Supervision Clinical Supervision Diagnosis 08/17 The 03:41:19 PM [place] EDT For [facility] F32.9 Major depressive Major depressive Diagnosis 05/07/2019 Th e disorder, single disorder, single 08:55:37 AM I nstitute episode, unspecified episode, unspecified EST For Family Health Z12.31 Encounter for Encounter for Diagnosis 03/26/2019 The screening mammogram screening mammogram 01:49:5 5 PM [place] for malignant for malignant EST For [facility] ly neoplasm of breast neoplasm of breast Health Z12.39 Encounter for other Encounter for other Diagnosis 020 The screening for screening for 01:49:55 PM Institu te malignant neoplasm malignant neoplasm EST For Family of breast of breast Health Follow-up for: Follow-up for: Diagnosis 03/26/2019 The 01:49:55 PM [place] EST For [facility] Refill Request Refill Request Diagnosis 03/19/2019 The 03:32:24 PM [place] EST For [facility] Outreach Outreach Diagnosis 02/26/2019 The 01:26:16 PM [place] EST For [facility] Lab Results Lab Results Diagnosis 02/06/2019 The 07:34:41 PM [place] EST For [facility] F12.20 Cannabis dependence, Cannabis dependence, Diagnosis 02/02 The uncomplicated uncomplicated 11:34:32 AM Institu te EST For [facility] Psychiatric Psychiatric Diagnosis 02/02/2019 The Evaluation Evaluation 10:53:17 AM [place] EST For [facility] G89.29 Other chronic pain Other chronic pain Diagnosis 9 The 04:39:44 PM [place] EST For [facility] M25.561 Pain in right knee Pain in right knee Diagnosis 9 The 04:39:44 PM [place] EST For [facility] Z12.11 Encounter for Encounter for Diagnosis 01/30/2019 The screening for screening for 04:39:44 PM Institu te malignant neoplasm malignant neoplasm EST For Family of colon of colon Health Z11.4 Encounter for Encounter for Diagnosis 01/30/2019 The screening for human screening for human 04:39:4 4 PM [place] immunodeficiency immunodeficiency EST Fo r Family virus [HIV] virus (HIV) Health Emergency Room Visit Emergency Room Visit Diagnosis 01/28 The Follow Up Follow Up 04:24:12 PM [place] EST For [facility] Enrollment Enrollment Diagnosis 01/20/2019 The 08:04:53 AM [facility] F43.10 Post-traumatic Post-traumatic Diagnosis 12/31/2018 The stress disorder, stress disorder, 04:55:33 PM I nstitute unspecified unspecified EDT For [facility] Psychosocial Psychosocial Diagnosis 12/31/2018 The 10:59:56 AM [place] EDT For [facility] Surgeries/Procedures Procedure Description Date Indications Data Source(s) FLUCELVAX, FLUCELVAX, Routine 11/26/2019 Need for 11/26/2019 Nee d for The INFLUENZA, INFLUENZA, 10:59 AM prophylactic 10:59:35 AM prophylactic [place] CCIIV4, CCIIV4, EDT vaccination EDT vaccination For Family PSRV FREE, PSRV FREE, and and He alth 4YRS+, 0.5 4YRS+, 0.5 inoculation inocul ation ML, ML, against against PREFILLED PREFILLED influenza influenza SYRINGE SYRINGE Need for prophylactic vaccination and in oculation against influenza MAXILLARY MAXILLARY Routine 10/24/2019 10/24/2019 The PARTIAL DENTUR PARTIAL DENTUR 9:00 AM EDT 09:00: 00 AM [place] RESIN BASE RESIN BASE EDT Fo r Family WAXBITE WAXBITE Health MAXILLARY MAXILLARY Routine 09/12/2019 09/12/2019 The PARTIAL DENTUR PARTIAL DENTUR 9:00 AM EDT 09:00: 00 AM [place] RESIN BASE RESIN BASE EDT Fo r Family IMPRESSION FINAL IMPRESSION FINAL Health FECAL GLOBIN BY FECAL GLOBIN BY 03/05/201903/05 The IMMUNOCHEMISTRY IMMUNOCHEMISTRY 12:00 AM 12:00:0 0 AM [place] EST EST For Fami ly Health HGA1C (HGB HGA1C (HGB Routine 01/30/2019 Health 01/30/2019 Heal th The GLYCOSYLATED) GLYCOSYLATED) 6:30 PM EST care 11:30:00 PM care [place] mainte EST mainte For [facility] Healthcare maintenance FECAL GLOBIN BY FECAL GLOBIN BY Routine 01/30/2019 Colon 01/30 Colon The IMMUNOCHEMISTRY IMMUNOCHEMISTRY 6:30 PM EST cancer 11:3 0:00 PM cancer [place] screening EST screening For Family Health Colon cancer screening COMP COMP Routine 01/30/2019 Healthcare 01/30/2019 Healthc are The METABOLIC METABOLIC 6:30 PM EST maintenance 11:30:00 PM maintenance [place] PANEL PANEL EST For [facility] Healthcare maintenance LIPID LIPID Routine 01/30/2019 Healthcare 01/30/2019 Healthc are The PANEL PANEL 6:30 PM EST maintenance 11:30:00 PM [facility] EST For [facility] Healthcare maintenance HEP B HEP B Routine 01/30/2019 Healthcare 01/30/2019 Healthc are The SURFACE SURFACE 6:30 PM EST maintenance 11:30:00 PM [facility] AG AG EST For [facility] (HBSAG) (HBSAG) Health Healthcare maintenance 4TH GEN HIV 4TH GEN HIV Routine 01/30/2019 Encounter 01/30/2019 Encounter The TEST-IFH TEST-IFH 6:30 PM EST for 11:30:00 PM for [place] RECOMMENDED RECOMMENDED screening EST screen ing For Family for HIV for HIV Health Encounter for screening for HIV HEP B SURFACE HEP B SURFACE Routine 01/30/2019 Healthcare 2018 Healthcare The AB AB 6:30 PM EST maintenance 11:30:00 PM [facility] ([facility]ORDER ([facility]ORDER EST For Family QN OPTION) QN OPTION) He alth Healthcare maintenance HEPATITIS C HEPATITIS C Routine 01/30/2019 Encounter 01/30/2019 Encounter The ANTIBODY W/ ANTIBODY W/ 6:30 PM EST for 11:30:00 PM for [place] REFLEX RT REFLEX RT screening EST screening For Family PCR PCR for HIV for HIV Health (REQUIRES 2 (REQUIRES 2 VIALS) VIALS) Encounter for screening for HIV HEP B HEP B Routine 01/30/2019 Healthcare 01/30/2019 Healthc are The CORE CORE 6:30 PM EST maintenance 11:30:00 PM [facility] AB, IGG AB, IGG EST For [facility] Healthcare maintenance Results ID Date Data Source [id number] 12/27/2019 11:50:23 AM EDT The [place] For [facility] Reason for Visit and Comments: Dental Appliance [1450] - "Partial ".Vitals (Last Filed):BP 135/73 Pulse 71 Temp 97.1 F (36.2 C) Vitals History RecordedIsabel Layne DDS 12/27/2019 11:50 AM SignedI have identified this p atient to be Thnah Kaminski, -1965.Chief ComplaintPatient presents with Dental A ppliance "Partial ".Vitals 12/27/19 1007BP: 135/73Pulse: 71Temp: 97.1 F (36.2 C)Pa inSc: 0-NoneHPIThe following portions of the patient s chart were reviewed in this encounterand updated as appropriate: Tobacco | Allergies | Meds | Med Hx | Surg Hx | SocHxProcedures perfo rmed today:Dental procedures in this visit D5211 - MAXILLARY PARTIAL DENTUR RESIN BASE TRY- IN (Completed) Service provider: Isabel Layne DDS Billing provider: Isabel Layne DDSDENTU RE TRY-INI have identified this patient to be Thanh Kaminski, -1965.Patient informed an d consented to treatment.Reviewed medical history changes noted.Wax teeth try-in.Patient s atisfied with set-up, shade, and appearance.Patient wishes to have engraving of name in pros thetic: noHad to change bite,had open anterior bite.Patient satisfied with set-up, shad e, and appearance.Approved Light pink for pink acrylic.Agreed to have wrought wire clas ps added .[place] moving to another [place] next week.Agreed to come back for insertion . Next Visit . 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 Apply interdigitally bid as directed Mirtazapine (REMERON) 15 MG Oral Tab Ta ke ONE tablet (15 mg total) by mouth daily Mirtazapine (REMERON) 15 MG Oral Tab Take ONE table t (15 mg total) by mouth daily prazosin 1 MG Oral capsuleAllergies As of Date: 12/27/2019 Noted Allergy ReactionASPIRIN 02/10/2015 1 - RashASPIRIN DL-TIKA INE 02/20/2015 1 - RashDate Reviewed: 12/27/2019Reviewed by: Isabel Layne DDS - Reviewed Historical Information Past Medical and Surgical HistoryMedical And Surgical History Item DateHerpes genitalia 05/10/2011HLD (hyperlipidemia)Co llapsed lungDiabetes (HCC)Pre-diabetesDepressionPTSD (post-traumatic stress disorde*Bunion 2013CHEMICAL PLEURODESIS FOR PERSISTENT*HX TIBIA FRACTURE SURGERYFami ly HistoryAdopted: Yes Problem Relation Age of Onset Alcohol/Drug Father Comments: cirrhosis Alcohol/Drug Mother Comments: of aidsFamily Status - Relation Status Age at Father MotherSocial History Marital Status: Unknown Sp ouse: Years of Education: # children:Social History Narrative Mervin warner on the street and in a skilled nursing. [place]. She is duein [place] first grand child.Social History Topics Tobacco Use: Yes Cigarettes (Packs/Day): 0 Years: 30 Start Date: Comment: patient newly diagnosed hiv disease doesn t want to quit. Alcohol U se: Yes 0 oz/week 0 Standard drinks or equivalent per week Comment: Last dri nk 50 days ago. Drink of choice Vodka Drug Use: Yes Cigarettes (Packs/Day): 0 Y ears: 30 Comment: crack, cocaine, marijuana last used 52 days ago in Rehab Sexually Active: N ot Currently Partners with: Male Comment: had sex 1.5 months ago. knows to use condoms . has sold her body for money to get drugs.Immunizations Administered Fluvax 01/23/2010 H1N1- Influenza Virus,split Virus * 02/01/2009 Influenza, Injectable,(cciiv4), Qu* 11/26/2019 PREVNAR (YLH27-Qfiyvr Pneumococcal* 02/10/2015 Tdap 02/10/2015 Name Value Range Interpretation Code Description Data Dannielle rce(s) Supporting Document(s ) ID Date Data Source [id number] 11/26/2019 12:39:14 PM EDT The [place] For [facility] Reason for Visit and Comments: Other [0] - room 4 Physical [83] - patient stated she need physical today. Forms [188] - forms fill out for housing Knee Pain [194] - right knee pain today.Vital s (Last Filed):BP 117/70 (Orthostatic Site : Arm - Right, Orthostatic Po- sition : Sitting, Orthostatic Cuff Size : Adult) Pulse - 79 Temp 98.4 F (36.9 C) (Oral) Resp 18 Ht 5 3" (- 1.6 m) Wt 157 lb (71.2 kg) BMI 27.81 kg/w0ThqjkusSue Ahn 11/26/2019 12:39 PM Signed I have identified this patient to be Thanhcherie Kaminski, -1965.Chief ComplaintPati ent presents with Other room 4 Physical patient stated she need physical today. Forms forms fill out for housing Knee Pain right knee pain today.Patient stated sh e has pain on a scale of 3/5 today.BP 117/70 (Orthostatic Site : Arm - Right, Orthost atic Position : Sitting,Orthostatic Cuff Size : Adult) | Pulse 79 | Temp 98.4 F (36 .9 C) (Oral) |Resp 18 | Ht 5 3" (1.6 m) | Wt 157 lb (71.2 kg) | BMI 27.81 k g/mPhBev rodriges (MD Zoltan 11/26/2019 11:04 AM AddendumS: I have confirmed patient to be Thanh Kaminski with 1965 53 yo F h/oPTSD, depression (follows with ) , [facility] f[facility], doing very well today. Happy to be completingprogram and working on getting housing. Here for yearly physic al.Right knee:S/p traumaPain is stableMotrin is helpingBetter, without caneGYN:LMP 10 months agoPerimenopausal+hot flashesTUD:Down to 2 cigarettes a day without NRTROS:Con : no unintentional weight changes, fevers, chillsCV: no CP, palpitations, LE swelli ngPulm: no cough, SOBGI: no abdominal pain, no diarrhea/constipation, no blood in st oolNeuro: no headachesO:Vitals: 11/26/19 0949BP: 117/70Orthostatic Site : Arm - R ightOrthostatic Position : SittingOrthostatic Cuff Size : AdultPulse: 79Resp: 18Temp: 98.4 F (36.9 C)TempSrc: OralWeight: 157 lb (71.2 kg)Height: 5 3" (1.6 m)General: N AD, participating in examHEENT: PERRL, EOMI, mmm, no LAD, no thyromegaly or nodules p alpatedCV: s1, s2, RRR, no mrgPulm: CTABAbdomen: soft, NDNTExt: warm, no eric maSkin: No RashPsych: affect is very happyThe 10-year ASCVD risk score (Jimgeorgina CAVANAUGH JrKeanu, e t al., 2013) is: 12.6% Values used to calculate the score: Age: 54 years Sex: Female Is Non- : Yes Diabetic: Yes Tobacc o smoker: Yes Systolic Blood Pressure: 117 mmHg Is BP treated: No HDL Cholest lroena: 54 mg/dL Total Cholesterol: 292 mg/dLA/P:53 yo F h/oPTSD, depression (follows with ), [facility], [facility], doing very well today. Happy to be completingprogram and working on getting housing.Elevated ASCVD 12.6on statinHCM/ScreeningsFlu shotMammogram referralNeeds pap smear, h as apptUTD on CRC screeningUTD on lipids and LeM7OKWQ on immunizationsTUDReducing use Offered NRT but will continue to work on cessation withoutMHFollowing with her e and mood greatFuture AppointmentsDate Time Provider Department Center11/26/2019 12:0 0 PM [facility] [place]12/09/2019 2:00 PM [facility] ZLOOIC46/4/2020 2:00 PM Billie Lynn LMSW [facility] CMQEEQ33/7/2020 8:3 0 AM Bev Jones MD (R) FPCHFM [id number] 12:00 PM [facility] [id number] 9:00 AM Isabel Layne DDS FPPALAK rodriges PGY-2[facility] HospitalMagali LPN 11:03 AM SignedIndex Serbian RelatedtopicsFlu Vaccine K EY POINTS The flu vaccine can help keep yo u from getting the flu. You cannot get theflu from the flu vaccine. The vaccine is ch anged each year to protect against the kinds of flu virusthat are expected during the next flu season. You can still get the vaccineafter the flu season starts to he lp protect against the flu. It is important to get the flu vaccine every year. Wha t is the flu vaccine?The flu vaccine can help keep you from getting the flu (influenza).Flu is caused by a virus. Wh en you have the flu, the virus is in your mucus andsaliva and can spread to others when you cough or sneeze. People can also getthe flu if they touch something with the flu virus on it such as cups,doorknobs, and hands, and then touch their mouth, n ose, or eyes.Outbreaks of flu occur every year, usually in late fall and winter. F lusymptoms tend to start suddenly.You should get a flu vaccine every year, before the start of flu season. Itsimportant to try to prevent flu for several reasons: Mos t people with the flu feel sick for a few days and then get better.However, the fl u sometimes leads to other infections such as ear, sinus, andlung infections. Some peo ple get very sick with the flu and may need to behospitalized. You may miss several days of work or school because of the flu. Older adults, very young children, peopl e whose immune systems are weak, andpeople with long-term medical problems, such as heart or lung disease ordiabetes, are at risk for more severe symptoms or problem s if they get the flu. Even if you don t get very sick with the flu, you could spread it to someonewho could have severe symptoms or problems if they get the flu.Flu seas on usually starts in December and may last through July. It takes about 2weeks befor e the flu vaccine can fully protect you against the flu. The vaccineis changed e ach year to protect against the kinds of flu virus that areexpected to be most common during the next flu season. You can still get thevaccine after the flu season star ts to help protect against the flu.How is the flu vaccine given?The flu vaccine can be given as a shot in the arm or as nasal spray for somepeople.How does it work?The vacc ine exposes your immune system to the flu virus. The immune system isyour bodys defense against infection. Your body reacts to the vaccine bymaking special cells (a ntibodies) that can fight it.The vaccine itself will not give you the flu. Hownickolase r, if you were exposed tothe flu just before getting the vaccine, you may still get s ick. If you do getthe flu after getting the vaccine, you will not get as sick as you would havewithout the vaccine.There are several types of flu shots: A shot that protects against 3 or 4 strains of flu is available for peopleages 6 months and ol ruma. A shot that protects against 3 or 4 strains of flu, using a jet injector, is available for people ages over age 5. A high-dose shot that protects against 3 s trains of flu is available forpeople over age 65. A shot that protects against 3 stra ins of flu is available for people with asevere egg allergy that are age 18 to 4 9.Ask your healthcare provider which form of the flu vaccine is right for you.Who rojelio uld get the flu vaccine?Adults and children 6 months or older should get the flu vacci ne. This isespecially important for people at high risk of serious flu complications s uchas: Young children women People with long-term health problems esquivel ch as asthma, diabetes, heart or lungdisease, or a weakened immune system People with certain muscle or nerve disorders such as seizure disorders orcerebral palsy, or w ho are at higher risk for breathing or swallowing problems People 50 years old and olderThe flu vaccine is also especially important for healthcare workers and oth erswho live with or care for those who are at high risk of complications. Thevaccine w ill help keep them from spreading the flu to the people they arecaring for.Talk with your healthcare provider before getting the vaccine if you: Are sick with a fever Had Guillain-Merrimac syndrome (GBS) within 6 weeks after getting the flu vaccine Hav e ever had a severe allergic reaction to eggs or to a previous flu shot.Small amounts of egg protein are used to make some kinds of flu vaccine. Askabout the egg-free vacci ne that is available for people 18 years of age andolder.Its OK to get the vaccin e if you have a cold.Thimerosal is a preservative used in some flu vaccines. Thimerosal-free vaccineis available if you are allergic to thimerosal or are concer andreia about itssafety. The nasal flu vaccine does not contain thimerosal.What are the side effects of the vaccine?You cannot get the flu from the flu vaccine. The flu va ccine can sometimescause minor side effects such as: Soreness, redness, or swelling where the shot was given Mild fever Body achesThese symptoms may start a few hour s after the vaccination and last a day ortwo.Serious problems from the flu vacc ine, such as severe allergic reactions, arevery rare.Developed by [employer] are.Adult Advisor 2019.2 published by [employer].Last modified: [id number] reviewed: [id number] content is reviewed periodically and is subject to change as new healthinformation becomes available. The information is intended to inform andedu marcelo and is not a replacement for medical evaluation, advice, diagnosis ortreatmen t by a healthcare professional.ReferencesAdult Advisor 201 9.2 Index 2019 [employer] and/or one of its subsidiariesMagali Duffy LPN 11/26/2019 11:11 AM SignedI have identified this patient to be Thanh Kaminski, -1965.Chief ComplaintPatient presents with Other r oom 4 Physical patient stated she need physical today. Forms forms fill out f or housing Knee Pain right knee pain today.NKA to the influenza vaccine compo nents.Patient Communication and Education AssessmentLearner: PatientLearning Needs reviewed: Immunizations: YesBarriers: NoneTeaching Methods: HandoutVerbalized Understanding: Communicates/understandsFollow up plan: See PCP PRNSignature: FRIDA Rehman Peitle: MAROGTfter obtaining consent, and per orders of Dr. Emil merino, injection ofInfluenza vaccine given by Magali Huang LPN. Patient ins tructed toremain in clinic for 20 minutes afterwards, and to report any adverse re actionto me immediately.Patient Tolerated well the procedure. No adverse reaction noted or reported.Patient left the clinic alert and oriented X 3.Colton Bauer AppointmentsDate Time Provider Department [place]11/26/2019 12:0 0 PM Lexi Brannon MD [facility]12/09/2019 2:00 PM Billie Lynn [place] [address] 2:00 PM Billie Lynn [place] [address] 8:3 0 AM Bev Jones MD (R) [place] [address] 12:00 PM Kate Brannon MD [place] [address] 9:00 AM Isabel Layne DDS FPCHDENT HARLEMKirkpat rick, Kelly, DO 11/26/2019 12:39 PM SignedOutpatient Primary Care ExceptionI discussed the care of Thanh Kaminski with the resident providing the service,during or immediately after the patient s visit, and was directly responsiblefor the patient s management. I can assure that the services provided areappropriate. I was physicall y available to the patient if clinically indicatedor requested by patient or resi dent. My discussion with the resident includedthe patient s history, physical exam, laboratory findings, and medicaldecision-making.PMHx PTSD, depres jorge, h/o substance use disorderBP 117/70 (Orthostatic Site : Arm - Right, Orthost atic Position : Sitting,Orthostatic Cuff Size : Adult) | Pulse 79 | Temp 98.4 F (36 .9 C) (Oral) |Resp 18 | Ht 5 3" (1.6 m) | Wt 157 lb (71.2 kg) | BMI 27.81 kg/m I agree with the resident s assessment and plan of care.primary diagnosis and plan s discussed were:#h/o substance use disorder - completed [employer] program, forms com pleted forhousing#chronic right knee pain - stable, motrin prn#tobacco use disorder - decreased 5 to 2-3, declines NRT#prediabetic/hyperlipidemia - continu e to watch, continue statin#mood disorder - follows with mental health#HCM - mammogr am referral provided, scheduled for PAP [id number] Maintenance Due:Make an jessica ointment to complete these items!Health Maintenance DueTopic Date Due HEPATITIS A (1 of 2 - Risk 2-dose series) 10/08/1966 DIABETIC EYE EXAM 1984 DIABETES: MONOFILAMENT TESTING 1984 URINE MICROALBUMIN 1984 DIABETES: PEDA L PULSE 1984 CERVICAL CANCER-5 YEAR SCREENING AGES 30-65 1996 Pneumo coccal Vaccine: Pediatrics (0 to 5 Years) and At-Risk Patients (6 to 64Years) (1 of 1 - PPSV23) 04/07/2015 HEMOGLOBIN A1C 05/02/2019 PHQ-2 Depression Screening 01/31/2020Future AppointmentsDate Time Provider Department Center12/03/2019 3:0 0 PM Lexi Brannon MD [facility]12/09/2019 2:00 PM Billie Lynn LMSW [place] [address] 2:00 PM Billie Lynn LMSW [place] [address] 8:3 0 AM Bev Jones MD (R) [place] [address] 12:00 PM Kate Brannon MD [place] [address] 9:00 AM Isabel Layne DDS [facility] Mara, MD (R) 11/26/2019 11:20 AM WrittenWas treated for latent TB per patient in pastPrimary Diagnosis:Z00.00 Well adult on routin e health check Other Diagnoses:Z00.00 Healthcare maintenance Z23 Need for prophylactic vaccination and inoculationagainst influenza R76.11 PPD positivePrescriptions as of 11/26/2019 Ammonium Lactate 12 % Apply externally Lotion Mix with vaseline and apply bid Aripiprazole 5 MG Oral Ta b Take ONE tablet (5 mg total) by mouth daily clotrimazole 1 % Apply externally external solution Apply interdigitally bid as directed Mirtazapine (REMERON) 15 MG Oral Tab Take ONE tablet (15 mg total) by mouth daily Mirtazapine (REMERON) 15 MG Oral Tab Take ONE tablet (15 mg total) by mouth daily prazosin 1 MG Oral capsuleA llergies As of Date: 11/26/2019 Noted Allergy ReactionASPIRIN 02/10/2015 1 - RashASPIRIN DL-LYSINE 02/20/2015 1 - RashDate Reviewed: 11/26/2019Reviewed by: Magali Huang LPN - Reviewed evel of Service:[id number] OFFIC/OUTPT VISIT E&M EST LOW-MOD SEVER* Historical Information ----- ------Past Medical and Surgical HistoryM edical And Surgical History Item DateHerpes genitalia 05/10/2011HLD (hyperlipidemia)Collapsed lungDiabetes (HCC)Pre-diabetesDepression PTSD (post-traumatic stress disorde*Bunion 2014CHEMICAL PLEURODESIS FOR PERSISTENT*HX TIBIA FRACTURE SURGERYFamily HistoryAdopted: Yes Pr oblem Relation Age of Onset Alcohol/Cb g Father Comments: cirrhosis Alcohol/Drug Mother Comments: of aidsFamily Status - Relation Status Age at Father MotherSocial History Marital Status: Unknown Spouse: Years of Education: # children:Social History Emmett pizano Living on the street and in a skilled nursing. Has daughter down [place]. She is duein A ugust first grand child.Social History Topics Tobacco Use: Yes Cigarettes ( Packs/Day): 0 Years: 30 Start Date: Comment: patient newly diagnosed hiv dis ease doesn t want to quit. Alcohol Use: Yes 0 oz/week 0 Standard drinks or equivalent per week Comment: Last drink 50 days ago. Drink of choice Vodka Drug Use: Yes Cigarettes (Packs/Day): 0 Years: 30 Comment: crack, cocaine, marijuana last used 52 days ago in Rehab Sexually Active: Not Curre ntly Partners with: Male Comment: had sex 1.5 months ago. knows to use con doms. has sold her body for money to get drugs.Immunizations Administered Fluvax 01/23/2010 H1N 1- Influenza Virus,split Virus * 02/01/2009 Influenza, Injectable,(cciiv4), Qu* 0 11/26/2019 PREVNAR (IMI27-Xlxhvk Pneumococcal* 02/10/2015 Tdap 02/10/2015 Name Value Range Interpretation Code Description Data Dannielle rce(s) Supporting Document(s ) ID Date Data Source [id number] 10/24/2019 10:33:07 AM EDT [facility] Reason for Visit and Comments: Dental Appliance [1450] - " Denture".Vitals (Last Filed):BP 112/74 Pulse 68 Temp 97.1 F (36.2 C)Vitals History RecordedIsabel Layne DDS 10/24/2019 10:33 AM SignedI have identif ied this patient to be Thanh KaminskiMONY -1965.Chief ComplaintPatient presen ts with Dental Appliance " Denture".Vitals 10/24/19 0951BP: 112/74Pulse: 68Temp: 97 .1 F (36.2 C)PainSc: 0-NoneHPIThe following portions of the patient s chart were rev iewed in this encounterand updated as appropriate: Tobacco | Allergies | Meds | Med Hx | Esquivel rg Hx | SocHxProcedures performed today:Dental procedures in this visit D5211 - MAXILL MANDEEP PARTIAL DENTUR RESIN BASE WAXBITE (Completed) Service provider: Isabel Layne DDS Lazaro ling provider: Isabel Layne DDSDENTURE - BITE REGISTRATIONI have identified this patie nt to be Thanh Kaminski, -1965.Patient informed and consented to treatment.Revi ewed medical history ,no changes noted.Bite registration using base plates and wax r ims for partial upper acrylic.Teeth selection and shade B-56 approved by patient .Patient with Class III bite,will ask lab if possible to get edge to edge bitewith patient s approval .Marked midline and canine .Next visit: Wax teeth try-in set up partial upper avrylic .Pre scriptions as of 10/24/2019 Disp Refills Start End Ammonium Lactate 1 2 % 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* 400 g 2 10/11/2019 Class: E Prescribing Sig: Mix with antonia perez and apply bid Aripiprazole 5 MG Oral Tab 30 t* 0 05/07/2019 Class: E Prescribing Route: Oral Sig: Take ONE tablet (5 mg total) by mouth daily BuPROPion HCl 300 MG Oral TABLET S* 30 t* 2 02/10/2015 Route: Oral Sig: T hernesto ONE tablet (300 mg total) by mouth daily buPROPion HCl ER, XL, (WELLBUTRIN * 30 t * 0 05/07/2019 Class: E Prescribing Route: Oral Sig: Take ONE tablet (150 mg total) by mouth daily clotrimazole 1 % Apply externally * 60 mL 0 0 01/09/2020 Class: E Prescribing Sig: Apply interdigitally bid as directed Mirtaz apine (REMERON) 15 MG Oral T* 30 t* 0 05/07/2019 Class: E Prescribing Rou te: Oral Sig: Take ONE tablet (15 mg total) by mouth daily Mirtazapine (REMERON) 15 MG Oral T* 05/31/2018 Class: Historical Med Sig: daily prazosin 1 MG Oral capsule 12/13/2018 Class: Historical Med Si g:Allergies As of Date: 10/24/2019 Noted Allergy ReactionASPIRIN 02/10/2015 1 - RashASPIRIN DL-LYSINE 02/20/2015 1 - RashDate Rev iewed: 10/24/2019Reviewed by: Isabel Layne DDS - Reviewed His torical Information Past Medical and Surgical HistoryMedical And Surgical History Item DateHerpes genitalia 05/10/2011HLD (hyperli pidemia)Collapsed lungDiabetes (HCC)Pre-diabetesDepressionPTSD (post-tr aumatic stress disorde*Bunion 2013CHEMICAL PLEURODESIS FOR PER SISTENT*HX TIBIA FRACTURE SURGERYFamily HistoryAdopted: Yes Problem Relation Age of Onset Alcohol/Drug Father Comments: cirrhosis Alcohol/Drug Mother Comments: of aidsFamily Status - Relation Status Age at Father Inocente rSocial History Marital Status: Unknown Spouse: Years of Education: # children:Social History Narrative Living on the [address] and in a skilled nursing. H as daughter down south. She is duein October first grand child.Social History Topics Tobac co Use: Yes Cigarettes (Packs/Day): 0 Years: 30 Start Date: Comment: pat ient newly diagnosed hiv disease doesn t want to quit. Alcohol Use: Yes 0 oz/w stebbins 0 Standard drinks or equivalent per week Comment: Last drink 50 days ago. Drink o f choice Vodka Drug Use: Yes Cigarettes (Packs/Day): 0 Years: 30 Comment: crack, cocaine, marijuana last used 52 days ago in Rehab Sexually Active: Not Currently Partners with: Male Comment: had sex 1.5 months ago. knows to use condoms . has sold her body for money to get drugs.Immunizations Administered Fluvax 01/23/2010 H1N1- Influenza Virus, split Virus * 02/01/2009 PREVNAR (IFM52-Zuttoa Pneumococcal* 02/10/2015 Tdap 02/10/2015 Name Value Range Interpretation Code Description Data Dannielle rce(s) Supporting Document(s ) ID Date Data Source [id number] 10/11/2019 12:31:15 PM EDT [facility] Reason for Visit and Comments: Referr al [138] - Clip toe nails, discomfort in sole of foot.Vitals (Last Filed):BP 120/78 (Orth ostatic Site : Arm - Left, Orthostatic Pos- ition : Sitting, Orthostatic Cuff Size : Adult) Pulse 7- 8 Temp 98.6 F (37 C) (Oral) Resp 17 Ht 5 6 " (1.6- 76 m) Wt 158 lb (71.7 kg) SpO2 98% BMI 25.5 kg/q0ZzgtfblKathya Donald MA 10/11/2019 12:31 PM SignedI have identified this patient to be Thanh Gordy, - 8.Chief ComplaintPatient presents with Referral Clip toe nails, discomfort in sole of foot.BP 120/78 (Orthostatic Site : Arm - Left, Orthostatic Position : Sitting,Orthostatic Cuff Size : Adult) | Pulse 78 | Temp 98.6 F (37 C) (Oral) |Resp 17 | Ht 5 6" (1.676 m) | Wt 158 lb (71.7 kg) | SpO2 98% | BMI 25.50kg/mPatient reports a pain score of "0-None" in her No pain location entered forpatient.Sabra DODGE [place], DPM 10/11/2019 12:31 PM SignedI have identified this pt. to be Thanh Kaminski, a 54 year old female with thefollowing Pro blems and Medications:Patient Active Problem List Diagnosis Date Noted Cannabis use disor ruma, moderate, in early remission, dependence (HCC)02/02/2019 Post traumatic stress d isorder 12/31/2018 Cocaine use disorder, moderate, dependence (HCC) 12/31/2018 Tobacco use disorder, mild, abuse 12/31/2018 PPD positive 05/10/2011 Herpes genitalia 05/10/2011 Lack of housing 08/07/2010 Counseling on substance use and abuse 08/07/2010 Personal history o f unspecified mental disorder 08/07/2010 Routine general medical examination at a health care facility 07/29/2010Current Outpatient MedicationsMedication Sig Dispense Refil l Ammonium Lactate 12 % Apply externally Lotion Mix with vaseline and apply von701 g 2 Arip iprazole 5 MG Oral Tab Take ONE tablet (5 mg total) by mouth daily 30tablet 0 BuPROPion HCl 30 0 MG Oral TABLET SR 24 HR Take ONE tablet (300 mg total) bymouth daily 30 tablet 2 buPROPion HCl ER, XL, (WELLBUTRIN XL) 150 MG Oral TABLET SR 24 HR Take ONEtablet (150 mg total) by mouth d aily 30 tablet 0 clotrimazole 1 % Apply externally external solution Apply interdigitally b idas directed 60 mL 0 Mirtazapine (REMERON) 15 MG Oral Tab Take ONE tablet (15 mg total) by samantha thdaily 30 tablet 0 Mirtazapine (REMERON) 15 MG Oral Tab daily prazosin 1 MG Oral capsuleNo current facility-administered medications for this visit.Patient referred by: Bev Jones (Cesar), MDSUBJECTIVE:Thanh Kaminski present with painful corn(s), callus(es) and long nails espec iallythe 2nd toes- wants treatment for fungus nails on both feet- denies anytreatmentPrior roxy tment: Other podiatristOBJECTIVE:BP 120/78 (Orthostatic Site : Arm - Left, Orthostatic Position : Sitting,Orthostatic Cuff Size : Adult) | Pulse 78 | Temp 98.6 F (37 C) (Oral) |Resp 17 | Ht 5 6" (1.676 m) | Wt 158 lb (71.7 kg) | SpO2 98% | BMI 25.50kg/mFoot Exam: bunion surg ical scars both feet; all digits are contracted; dryskin; interdigital macerations/debris ;normal DP and PT pulses, no trophicchanges or ulcerative lesions, normal sensory exam, trophic changes - discreteand nucleated right foot callus and latera ;eft 5th digit corn - both with mildpain and nail exam- long and dystrophic nails; both 2nd digits are most severe-d ystrophic discolored and both with lateral angulated growthASSESSMENT:54 year old yo female with corn(s), nail bed injury, tinea pedis/macerationand onychomycosis of the toenailsPLAN: Nails debrided, callus and corn pared down with; no bleeding points, andthe central spicule was excis ed, no anesthesia or hemostasis necessary.Patient will follow up: 11-12WAndrey Esteban y Diagnosis:L84 Corns and callosities Other Diagnoses:B35.1 Dermatophytosis of n ail L30.9 Eczema, unspecified type B35.3 Tinea pedis of both feet S99.929A Injury of nail bed of toe Commen t:both 2nd digitsPrescriptions as of 10/11/2019 Disp Refills Start End * Amm onium Lactate 12 % 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* 400 g 2 10/11/2019 Class: E Prescribing Sig : Mix with vaseline and apply bid Aripiprazole 5 MG Oral Tab 30 t* 0 04/15 Class: E Prescribing Route: Oral Sig: Take ONE tablet (5 mg total) by mouth da eros BuPROPion HCl 300 MG Oral TABLET S* 30 t* 2 02/10/2015 Route: Oral Sig: T hernesto ONE tablet (300 mg total) by mouth daily buPROPion HCl ER, XL, (WELLBUTRIN * 30 t * 0 05/07/2019 Class: E Prescribing Route: Oral Sig: Take ONE tablet (150 mg total) by mouth daily * clotrimazole 1 % Apply externally * 60 mL 0 0 01/09/2020 Class: E Prescribing Sig: Apply interdigitally bid as directed Mirtaz apine (REMERON) 15 MG Oral T* 30 t* 0 05/07/2019 Class: E Prescribing Rou te: Oral Sig: Take ONE tablet (15 mg total) by mouth daily Mirtazapine (REMERON) 15 MG Ora l T* 05/31/2018 Class: Historical Med Sig: daily prazosin 1 MG Oral capsule 12/13/2018 Class: Historical Med Sig:Allergies As of Da te: 10/11/2019 Noted Allergy ReactionASPIRIN 02/10/2015 1 - Jean hASPIRIN DL-LYSINE 02/20/2015 1 - RashDate Reviewed: 09/12/2019Reviewed by : Isabel Layne DDS - ReviewedLevel of Service:[id number] OFFIC/OUTPT VISIT E&M EST LOW-MOD SEVER* Historical Information Past Medical and Surgical HistoryMedical And Surgical History Item DateHerpes genitalia 05/10/2011HLD (hyperlipidemia)Co llapsed lungDiabetes (HCC)Pre-diabetesDepressionPTSD (post-traumatic stress disorde*Bunion 2014CHEMICAL PLEURODESIS FOR PERSISTENT*HX TIBIA FRACTURE SURGERYFami ly HistoryAdopted: Yes Problem Relation Age of Onset Alcohol/Drug Father Comments: cirrhosis Alcohol/Drug Mother Comments: of aidsFamily Status - Relation Status Age at Father MotherSocial History Marital Status: Unknown Sp ouse: Years of Education: # children:Social History Narrative Mervin warner on the street and in a skilled nursing. Has daughter down [place]. She is duein [place] first grand child.Social History Topics Tobacco Use: Yes Cigarettes (Packs/Day): 0 Years: 30 Start Date: Comment: patient newly diagnosed hiv disease doesn t want to quit. Alcohol U se: Yes 0 oz/week 0 Standard drinks or equivalent per week Comment: Last dri nk 50 days ago. Drink of choice Vodka Drug Use: Yes Cigarettes (Packs/Day): 0 Y ears: 30 Comment: crack, cocaine, marijuana last used 52 days ago in Rehab Sexually Active: N ot Currently Partners with: Male Comment: had sex 1.5 months ago. knows to use condoms . has sold her body for money to get drugs.Immunizations Administered Fluvax 01/23/2010 H1N1- Influenza Virus,split Virus * 02/01/2009 PREVNAR (KEP10-Trszcx Pneumococcal* 02/10/2015 Tdap 02/10/2015 Name Value Range Interpretation Code Description Data Dannielle rce(s) Supporting Document(s ) ID Date Data Source [id number] 09/12/2019 10:07:44 AM EDT [facility] Reason for Visit and Comments: Dental Appliance [1450] - "My denture "Vitals (Last Filed):BP 131/81 Pulse 81 Temp 97.1 F (36.2 C) Vitals History RecordedIsabel Layne DDS 09/12/2019 10:07 AM SignedI have identified this patient to be Thanh Kaminski, -1965.Chief ComplaintPatient presents with Dental A ppliance "My denture "Vitals 09/12/19 0925BP: 131/81Pulse: 81Temp: 97.1 F (36.2 C)Pa inSc: 0-NoneHPIThe following portions of the patient s chart were reviewed in this encounterand updated as appropriate: Tobacco | Allergies | Meds | Med Hx | Surg Hx | SocHxProcedures perfo rmed today:Dental procedures in this visit D5211 - MAXILLARY PARTIAL DENTUR RESIN BASE IMPR ESSION FINAL (Completed) Service provider: Isabel Layne DDS Billing provider: Stevie Layne ie, DILIAENTURE - FINAL IMPRESSIONI have identified this patient to be Thanh Kaminski, - [birth year].Patient informed and consented to treatment.Reviewed medical history - changes noted.PVS,[place] medium monophase fast set impression taken,border molding performed .Left comfortable .Nex t visit: Bite registration and shade Partial upper acrylic .Prescriptions as of 09/12/2019 Disp Refills Start End * Aripiprazole 5 MG Oral Tab 30 t * 0 05/07/2019 Class: E Prescribing Route: Oral Sig: Take ONE tablet (5 m g total) by mouth daily * BuPROPion HCl 300 MG Oral TABLET S* 30 t* 2 02/10/2015 Route: Oral Sig: Take ONE tablet (300 mg total) by mouth daily * buPROPion HCl ER, XL, (WE LLBUTRIN * 30 t* 0 05/07/2019 Class: E Prescribing Route: Oral Sig: Take ONE tablet (150 mg total) by mouth daily metFORMIN HCl 500 MG Oral Tab 60 t* 2 04/13/2019 07/12/2019 Class: E Prescribing Route: Oral Sig: Take ONE tablet (500 mg total) by mouth 2 (two) times a day * Mirtazapine (REMERON) 15 MG Oral T* 30 t* 0 05/07/2019 Class: E Prescribing Route: Oral Sig: Take ONE tablet (15 mg total) by [facility] daily * Mirtazapine (REMERON) 15 MG Oral T* 05/31/2018 Class: Historica l Med Sig: daily prazosin 1 MG Oral capsule 30 c* 0 03/19/2019 06/17/2019 Class: E Prescribing Route: Oral Sig: Take ONE capsule (1 mg total) by mouth nightly * prazosin 1 MG Oral capsule 12/13/2018 Class: Historical Med Si g:Allergies As of Date: 09/12/2019 Noted Allergy ReactionASPIRIN 02/10/2015 1 - RashASPIRIN DL-LYSINE 02/20/2015 1 - RashDate Reviewed: 09/11Reviewed by: Isabel Layne DDS - Reviewed Historical Information Past Medical and Surgical HistoryMedical And Surgical History Item DateHerpes genitalia 05/10/2011HLD (hyperlipidemia)Co llapsed lungDiabetes (HCC)Pre-diabetesDepressionPTSD (post-traumatic stress disorde*Bunion 2014CHEMICAL PLEURODESIS FOR PERSISTENT*HX TIBIA FRACTURE SURGERYFami ly HistoryAdopted: Yes Problem Relation Age of Onset Alcohol/Drug Father Comments: cirrhosis Alcohol/Drug Mother Comments: of aidsFamily Status - Relation Status Age at Father MotherSocial History Marital Status: Unknown Sp ouse: Years of Education: # children:Social History Narrative Mervin warner on the street and in a skilled nursing. Has daughter [place]. She is duein [place] first grand child.Social History Topics Tobacco Use: Yes Cigarettes (Packs/Day): 0 Years: 30 Start Date: Comment: patient newly diagnosed hiv disease doesn t want to quit. Alcohol U se: Yes 0 oz/week 0 Standard drinks or equivalent per week Comment: Last dri nk 50 days ago. Drink of choice Vodka Drug Use: Yes Cigarettes (Packs/Day): 0 Y ears: 30 Comment: crack, cocaine, marijuana last used 52 days ago in Rehab Sexually Active: N ot Currently Partners with: Male Comment: had sex 1.5 months ago. knows to use condoms . has sold her body for money to get drugs.Immunizations Administered Fluvax 01/23/2010 H1N1- Influenza Virus,split Virus * 02/01/2009 PREVNAR (QTL74-Kmkwrw Pneumococcal* 02/10/2015 Tdap 02/10/2015 Name Value Range Interpretation Code Description Data Dannielle rce(s) Supporting Document(s ) ID Date Data Source [id number] 03/26/2019 05:53:11 PM [facility] Reason for Visit and Comments: Follow -up for: [92] - Patient stated appt f/u from last visitVitals (Last Filed):BP 114/63 (Orth ostatic Site : Arm - Left, Orthostatic Pos- ition : Sitting, Orthostatic Cuff Size : Adult) Pulse 8- 8 Temp 98.1 F (36.7 C) (Oral) Resp 16 Ht 5 6" (1- .676 m) Wt 170 lb (77.1 kg) SpO2 97% BMI 27.44 kg/t3AmmvjEllen Santos 03/26/2019 5:53 PM SignedI have identified this patient to be Thanh Kaminski, - 8.Chief ComplaintPatient presents with Follow-up for: Patient stated appt f/u from last visitB P 114/63 (Orthostatic Site : Arm - Left, Orthostatic Position : Sitting,Orthostatic Cuff Size : Adult) | Pulse 88 | Temp 98.1 F (36.7 C) (Oral) |Resp 16 | Ht 5 6" (1.676 m) | Wt 170 lb (77.1 kg) | SpO2 97% | BMI 27.44kg/mPain 0/5 todayPharmacy verified and Allergis Veri Bev Reddy (R) 03/26/2019 5:48 PM Sblazi39 yo F h/o DM, PTSD, [facility]SUD at [facility], , [place] (follows with here),right tibial fx, feels well today, no complaints.#HCMFIT test normal Due [facility]oM[facility]#Positive Quantiferon GoldCompleted tx with INH in 90sAsxreports nl [facility]OBJECT[facility]:EXAM:BP 114/63 (Orthostatic Site : Arm - Left, O rthostatic Position : Sitting,Orthostatic Cuff Size : Adult) | Pulse 88 | Temp 98.1 F (36.7 C) (Oral) |Resp 16 | Ht 5 6" (1.676 m) | Wt 170 lb (77.1 kg) | SpO2 97% | BMI 27.44kg/m The patient appears well, in no apparent distress. Alert and oriented timesthree, pleasant and cooperative. Vital signs are as noted by the nurse.Eyes: no scleral icterusOropharynx : normalNeck: normal and no adenopathyLungs: normal and clear to auscultationHeart: regular rate and rhythm and no murmurs, clicks, or gallopsAbdomen: soft, non-tenderThe 10-year ASCVD risk s core (Jim CAVANAUGH Jr., et al., 2013) is: 10.3% Values used to calculate the score: Age: 53 years Sex: Female Is Non- : Yes Diabetic: Yes Tobacco smoker: Yes Systolic Blood Pressure: 114 mmHg Is BP treated: No HDL Cholesterol: 54 mg/dL Total Cholesterol: 292 mg/dLASSESSMENT/PLAN:53 yo F h/o DM, PTSD, polySUD at [facility], (foll ows with MH here),right tibial fx.1. Breast screening- US BREAST UNI REAL TIME WITH IMAGE LIMIT ED2. Pre-diabetesMetformin 500mg BID3. Elevated ASCVD riskStatin at next visit4. HLD-discusse d lifestyle modification although difficult iso of right leg pain andlack of control of food opti ons at [facility]. Uli Al MD 03/26/2019 5:53 PM SignedOutpatient Primary Care Exception I discussed the care of Thanh Kaminski with the resident providing the service,during or immediat landon after the patient s visit, and was directly responsiblefor the patient s management. I can assure that the services provided areappropriate. I was physically availa ble to the patient if clinically indicatedor requested by patient or resident. My discussion w ith the resident includedthe patient s history, physical exam, laboratory findings, and medicalde cision-making. I agree with the resident s assessment and plan of care,primary diagnosis of:53 yo F with history of prediabetes, PSA - crack cocaine/marijuana, [facility], history of suicidal ideation.BP 114/63 (Orthostatic Site : A rm - Left, Orthostatic Position : Sitting,Orthostatic Cuff Size : Adult) | Pulse 88 | Temp 9 8.1 F (36.7 C) (Oral) |Resp 16 | Ht 5 6" (1.676 m) | Wt 170 lb (77.1 kg) | SpO2 97% | BMI 27.44kg/mThe 10-year ASCVD risk score (Jim CAVANAUGH Jr., et al., 2013) is: 10.3% Values used to calculate the score: Age: 53 years Sex: Female Is Non- : Yes Diabetic: Yes Tobacco smoker: Yes Systolic Blood Pressure: 114 mmHg Is BP treated: No HDL Cholesterol: 54 mg/dL Total Cholesterol: 292 mg/dLResults for orders placed or perfor med in visit on 03/05/19FECAL GLOBIN BY IMMUNOCHEMISTRYResult Value Ref Range Oc cult Blood Immunochem NEGATIVE NEGATIVEHistory of right tibial fracture 1 year ago.X-rays review ed of the knee, knee pain improvedFIT test normal.Mammogram at [facility]- 0 discussed and ordered bilateral breastultrasounds - will refer to [place]. Historical o rder for mammogram.Positive Quantiferon Gold - reports normal chest x-ray, denies cough, fever, night sweats, weight loss, hemoptysis, fatigue or decreased appetite.Completed course of I NH and B6.Tobacco - encourage cessation.Prediabetes - Continue metformin.Elevated ASCVD risk - discuss statin next visit.Tori Rivero Diagnosis:Z12.39 Breast screening Ot her Diagnoses:Z12.31 Visit for screening mammogram R73.03 Pre-diabetesPres criptions as of 03/26/2019 Disp Refills Start End acetaminophen (TYLENOL ) 325 MG Ora* 30 t* 1 01/17/2019 02/16/2019 Class: E Prescribing Route: Oral S ig: Take TWO tablets (650 mg total) by mouth every 6 (six) hours as needed for mild p ain Aripiprazole 5 MG Oral Tab 30 t* 0 03/19/2019 Class: E Prescribing Route: Oral Sig: Take ONE tablet (5 mg total) by mouth daily BuPROPion HCl 300 MG Oral TABLET S* 30 t* 2 02/10/2015 Route: Oral Sig: Take ONE tablet (300 mg total) by mouth daily Cephalexin 500 MG Oral Cap 01/28/2019 02/04/2019 C lass: Historical Med Route: Oral Sig: Take 500 mg by mouth * metFORMIN HCl 500 MG Oral Ta b 60 t* 2 03/26/2019 06/24/2019 Class: E Prescribing Route: Oral S ig: Take ONE tablet (500 mg total) by mouth 2 (two) times a day Mirtazapine (REMERON) 15 MG Oral T* 30 t* 0 03/19/2019 Class: E Prescribing Route: Oral Sig: Take ONE tablet (15 mg total) by mouth daily Mirtazapine (REMERON) 15 MG Oral T* 05/31/2018 Class: Historical Med Sig: daily prazosin 1 MG Oral capsule 30 c * 0 03/19/2019 06/17/2019 Class: E Prescribing Route: Oral Sig: Take ONE capsule (1 mg total) by mouth nightly prazosin 1 MG Oral capsule 12/13/2018 Class: Historical Med Sig:Allergies As of Date: 03/26/2019 Noted Lopez rgy ReactionASPIRIN 02/10/2015 1 - RashDate Reviewed: 01/30/2019Review ed by: Latisha Velázquez - ReviewedLevel of Service:[id number] OFFIC/OUTPT VISIT E&M EST LOW-MOD SEVER * Historical Information Past Medical and Surgical HistoryMedical And Surgical History Item DateHerpes genitalia 05/10/2011HLD (hyperlipidemia)Co llapsed lungDiabetes (HCC)Bunion 2014CHEMICAL PLEURODESIS FOR PERSI STENT*HX TIBIA FRACTURE SURGERYFamily HistoryAdopted: Yes Problem Re lation Age of Onset Alcohol/Drug Father Comments: cirrhosis Alcohol/Drug Mother Comments: of aidsFamily Status - Re lation Status Age at Father MotherSocial History Marital St atus: Unknown Spouse: Years of Education: # children:Social Hist ory Narrative Living on the street and in a skilled nursing. Has daughter down [place]. She is duein A ugust first grand child.Social History Topics Tobacco Use: Yes Cigarettes (Packs/Day ): .3 Years: 30 Start Date: Comment: patient newly diagnosed hiv disease doesn t want to quit. Alcohol Use: Yes 0 oz/week 0 Standard drinks or equivalent per week Comment: Last drink 50 days ago. Drink of choice Vodka Drug Use: Yes Cigarettes ( Packs/Day): .3 Years: 30 Comment: crack, cocaine, marijuana last used 52 days ago in Rehab Sexually Active: Not Currently Partners with: Male Comment: had sex 1.5 months ago. knows to use condoms. has sold her body for money to get drugs.Immunizations Administered Fluvax 01/23/2010 H1N1- Infl uenza Virus,split Virus * 02/01/2009 PREVNAR (PHO43-Exjnsi Pneumococcal* 02/10/2015 Tdap 02/10/2015 Name Value Range Interpretation Code Description Data Dannielle rce(s) Supporting Document(s ) ID Date Data Source [id number] 03/06/2019 02:44:00 PM EST [facility] Name Value Range Interpretation Description Data Sup porting Code Source(s) Document(s ) OCCULT BLOOD NEGATIVE NEGATIVE The IMM[facility] ID Date Data Source [id number] 01/30/2019 08:12:06 PM EST [facility] Reason for Visit and Comments: Follow -up for: [92] - Knee pain- XrayVitals (Last Filed):BP 107/71 (Orthostatic Site : Arm - Left, Orthostatic Pos- ition : Sitting, Orthostatic Cuff Size : Large Adult) P- ulse 72 Temp 98 F (36.7 C) (Oral) Resp 18 H t 5 6- " (1.676 m) Wt 174 lb 3.2 oz (79 kg) LMP 12/11/2018 (- Approximate) SpO2 100% BMI 28.12 kg/s0Fgjznl History RecordedLe Latisha soto 01/30/2019 8:12 PM SignedI have identified this patient to be Lyly almaraz MONY Kaminski -1965.Chief ComplaintPatient presents with Follow-up for: Knee pain - XrayVitals 01/30/19 1716BP: 107/71Pulse: 72Resp: 18Temp: 98 F (36.7 C)TempSrc: OralSpO2: 100%Weight: 174 lb 3.2 oz (79 kg)Height: 5 6" (1.676 m)PainSc: 4-Hurt s Whole LotPainLoc: KneePharmacy was verified.Patient is in stable condition after triage.Latisha VelázquezMedical Office AssistantAdriBev murphy (R) [phone] 8:11 PM SignedSUBJECTIVE:53 yo F h/o DM, PTSD, polySUD, SI, SA here as follow -up for worsening ofchronic right knee pain.#Knee Pain-Had right tibial fractur e one year ago s/p plates and screws-Has chronic pain at baseline which worsened a few weeks ago in the absence oftrauma, systemic symptoms-At last visit recommen ded PT and tylenol and xray-Says pain unchanged, taking tylenol 325 mg 2 table ts BID daily and has beengoing to PT for knee strengthening,-Right knee xray screws an d plates in place and mild osteoarthritis-Taking tylenol without i mprovement.-gave referral for ortho#DM-Takes metformin, thinks she is getting that fr om PCP in [place]-thinks she saw ophtho this year#UTI-dx with [place] [facility] [place], ta garrett keflex x 7 days#HCM-did mammogram and pap smear in [place]-abnormal pap and c olpo done?-mammo also abnormal, needs to get US-got a flu shot-got prevnar in 2014, u nclear why-says she is due for pneumovax in 2019-was given cologuard but did not do it-GC/chlamydia, RPR done this year and normal-Says she was tested for HCV and t ested negative#Spontaneous Pneumothorax x 4-pleurodesceis at [facility], most recently in 2007-no pulm f/u#Depression#PTSD-sees mental health here#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 Alert an d oriented timesthree, pleasant and cooperative. Vital signs are as noted by the nurse.Eyes: no scleral icterus, no rim pallorOropharynx: normalNeck: normal and no adenopathyLungs: normal and clear to auscultationHeart: regular rate and rhyt hm and no murmurs, clicks, or gallopsAbdomen: soft, non-tenderMusculoskeletal: able to flex to 90 degrees, improved from prior, able to bearmore weight on rightASSESSME NT/PLAN:53 yo F h/o DM, PTSD, polySUD, SI, SA here as follow-up for worsening ofchroni c right knee pain.She would like to establish care here and will bring records at next visit.Knee pain seems to be improving, likely due to trauma one year ago and mi ld OA,discussed importance of continuing PT and tylenol as needed.1. Encounter for s creening for HIV- 4TH GEN HIV TEST-[facility] RECOMMENDED; Future- HEPATITIS C ANTIBOD Y W/ REFLEX RT PCR; Future- HEPATITIS C ANTIBODY W/ REFLEX RT PCR- 4TH GEN HIV T EST-[facility] RECOMMENDED2. Colon cancer screening- FECAL GLOBIN BY IMMUNOCHEMISTRY; Future- FECAL GLOBIN BY IMMUNOCHEMISTRY3. Healthcare maintenance- LIPID PANEL; Future- COMP M ETABOLIC PANEL; Future- COMP METABOLIC PANEL- LIPID PANEL4. Screening in [facility]- QUANTIF GIOVANI GOLD TB PLUS; Future- HEP B CORE AB, IGG; Future- HEP B SURFACE AB ([facility]-O RDER QN OPTION); Future- HEP B SURFACE AG (HBSAG); Future- HEP B SURFACE AG (HBSAG )- HEP B SURFACE AB ([facility]-ORDER QN OPTION)- HEP B CORE AB, IGG- QUANTIFERON GOLD TB PLUS5. Chronic pain of right knee-to continue PT and tylenol as needed6. T2D M- HGA1C (HGB GLYCOSYLATED)- HGA1C (HGB GLYCOSYLATED); FutureAt next visit:F/u h /o pneumothoraxMara Marland PGY-1BCarolann jade MD 01/30/2019 8:12 PM Keira dOutpatient Primary Care ExceptionI discussed the care of Thanh Kaminski with the residen t providing the service,during or immediately after the patient s visit, and was direc tly responsiblefor the patient s management. I can assure that the services provided areappropriate. I was physically available to the patient if clinically indicatedor requested by patient or resident. My discussion with the resident includedthe patient s history, physical exam, laboratory findings, and medicaldecision-making. I agree with the resident s assessment and plan of care,primary diagnosis of: Follow up knee painVitals: 01/30/19 1716BP: 107/71Orthostatic Site : Arm - LeftOrtho static Position : SittingOrthostatic Cuff Size : Large AdultPulse: 72Resp: 18Temp: 98 F (36.7 C)TempSrc: OralSpO2: 100%Weight: 174 lb 3.2 oz (79 kg)Height: 5 6" (1.676 m)Notable history and physical exam findings: Substance use disorder at [facility]. DM. Gets most medical care in [place], considering switching over ramila ere. Hx knee trauma 1 year ago, recently w/ worsening of pain.with a plan of: R knee XR: all hardware in place, osteoarthritis. Able to bearweight. Interval improvement from prior visit. Started PT, will continuetylenol. Doesn t want to go back to surgeon, referred back to orthoDM: on metformin alone. Check labs today. Needs statin.Substance use disorder: doing well at [facility], check Hep serologies today,H IVSmoker: cutting back. Needs flu, PSV23. LDCT at 56HCM: needs breast US. Had abno rmal pap + colpo this year. Will request records.Offer FITFuture AppointmentsDate Time Provider Department Ulcpcn9602/02/2019 11:20 AM Lexi Brannon MD ICCHPSY H ARANGELES04/06/2018 2:00 PM Billie Lynn [facility] Gokul Sung Sharon 01/30/2019 8:12 PM SignedI have identified this patient to be Thanh harris, -1965.Thanh Kaminski at [facility] today to have blood drawn. 2 sst and 1 lavenderand 4 Quantiferon gold tubes sent to [facility]. She tolerated theprocedure well and will return to the clinic for results.Primary Diagnosis:Z00 .00 Healthcare maintenance Other Diagnoses:Z11.4 Encounter for screen ing for HIV Z53.20 Surgical or procedure not carried out be cause ofpatient s decision Z12.11 Colon cancer screening M25.561* Chronic pain of right kneePrescriptions as of 01/30/2019 Disp Refills Start End acetaminophen (TYLENOL) 325 MG Ora* 30 t * 1 01/17/2019 02/16/2019 Class: E Prescribing Route: Oral Sig: Maninder e TWO tablets (650 mg total) by mouth every 6 (six) hours as needed for mild p ain BuPROPion HCl 300 MG Oral TABLET S* 30 t* 2 02/10/2015 Route: Ora l Sig: Take ONE tablet (300 mg total) by mouth dailyAllergies As of Date: 019 Noted Allergy ReactionASPIRIN 02/10/2015 1 - Jean hDate Reviewed: 01/30/2019Reviewed by: Latisha Velázquez - ReviewedLevel of Service:04167 OFFIC/OUTPT VISIT E&M EST LOW-MOD SEVER* Historical Information ----- ------Past Medical and Surgical HistoryM edical And Surgical History Item DateHerpes genitalia 05/10/2011HLD (hyperlipidemia)Collapsed lungBunion 2014CHEMICAL PLEURODESIS FOR PERSISTENT*Family HistoryAdopted: Yes Problem Relation Age of Onset Alcohol /Drug Father Comments: cirrhosis Alcohol/Drug Mother Comments: of aidsFamily Status - Relation Status Age at Father MotherSocial History Marital Status: Unknown Spouse: Years of Education: # children:Social History Narrat eyal Living on the street and in a skilled nursing. Has daughter down south. She is duein A ugust first grand child.Social History Topics Tobacco Use: Yes Cigarettes ( Packs/Day): .3 Years: 30 Start Date: Comment: patient newly diagnosed hiv dis ease doesn t want to quit. Alcohol Use: Yes 0 oz/week 0 Standard drinks or equivalent per week Comment: Last drink 50 days ago. Drink of choice Vodka Drug Use: Yes Cigarettes (Packs/Day): .3 Years: 30 Comment: crack, cocaine, marijuana last used 52 days ago in Rehab Sexually Active: Not Curre ntly Partners with: Male Comment: had sex 1.5 months ago. knows to use con doms. has sold her body for money to get drugs.Immunizations Administered Fluvax 01/23/2010 H1N 1- Influenza Virus,split Virus * 02/01/2009 PREVNAR (KZU12-Rkpbtw Pneumococcal* 1 04/12/2014 Tdap 02/10/2015 Name Value Range Interpretation Code Description Data Dannielle rce(s) Supporting Document(s ) ID Date Data Source [id number] 02/01/2019 12:11:00 PM EST [facility] Name Value Range Interpretation Description Data Sup porting Code Source(s) Document(s ) OCCULT BLOOD TNP NEGATIVE The IMM[facility] Comment: TEST NOT PERFORMED; FOBT SAMPL E BOTTLE NOT RECEIVED. ID Date Data Source [id number] 01/31/2019 09:31:00 AM EST [facility] Name Value Range Interpretation Description Data Sup porting Code Source(s) Document(s ) HIV 1/2 Non-React Non-React The [place] AB, EIA eyal eyal [facility] Assay Information: Assay for the detecti on of HIV p24 antigen and antibodies to Human Immunodeficiency Virus Type 1,including Group O (HIV-1 + "O") and/or T ype 2 (HIV-2) Method: Chemiluminescence ([employer]) ID Date Data Source [id number] 01/31/2019 09:31:00 AM EST [facility] Name Value Range Interpretation Code Description Data Supporting Source(s) Document(s ) HBCAB Non-Reacti Non-Reacti [facility] ve ve [facility] Hepatitis B Result Inte rpretation (for reference use only) Marker L I/EA* Acute Past Chronic HBV Vacc. HBsAg + + - + -HBeAg + + - +/- -HEP.B.CORE AB,IgM - + - - -HEP.B.CORE AB. - + + + -HBeAb - - +/- +/- -HBsAb - - +/- - +*Late Incubation/Early Acute NOTE: In remote p ast infection, HBsAb level may be Negative or Non-Reactive in some patients. ID Date Data Source [id number] 01/31/2019 09:30:00 AM EST The [facility] Name Value Range Interpretation Description Data Sup porting Code Source(s) Document(s ) HEP C AB. 0.02 NA <0.80 The S/CO RATIO [facility] HEPATITIS C Non-React Non-Reac The ANTIBODY [facility] ID Date Data Source [id number] 01/31/2019 09:10:00 AM EST The [place] [facility] Name Value Range Interpretation Description Data Sup porting Code Source(s) Document(s ) HEPATITIS B Non-React Non-Reac The SURFACE [facility] ANTIGEN [facility] Hepatitis B Result Inte rpretation (for reference use only) Marker L I/EA* Acute Past Chronic HBV Vacc. HBsAg + + - + -HBeAg + + - +/- -HEP.B.CORE AB,IgM - + - - -HEP.B.CORE AB. - + + + -HBeAb - - +/- +/- -HBsAb - - +/- - +*Late Incubation/Early Acute NOTE: In remote p ast infection, HBsAb level may be Negative or Non-Reactive in some patients. ID Date Data Source [id number] 01/31/2019 08:54:00 AM EST The [facility] Attentive.ly Value Range Interpretation Code Description Data Dannielle rce(s) Supporting Document(s ) HBSAB Reactive Non-Reacti Abnormal (applies The Institu te ve to non-numeric For Family results) Health Hepatitis B Result Inte rpretation (for reference use only) Marker L I/EA* Acute Past Chronic HBV Vacc. HBsAg + + - + -HBeAg + + - +/- -HEP.B.CORE AB,IgM - + - - -HEP.B.CORE AB. - + + + -HBeAb - - +/- +/- -HBsAb - - +/- - +*Late Incubation/Early Acute NOTE: In remote p ast infection, HBsAb level may be Negative or Non-Reactive in some patients. ID Date Data Source [id number] 01/31/2019 07:48:00 AM EST The [facility] Name Value Range Interpretation Description Data Sup porting Code Source(s) Document(s ) HEMOGLOBIN A1C 5.9 % <5.7 Above high normal The [facility] HEMOGLOBIN A1c AND eAG REFERENCE RANGES A1c(%) DIABETES CATEGORY* <5.7 Normal (non-diabetic) 5.7-6.[address] of diabetes =>6.5 Consistent with diabetes A1c(%) eAG(ESTIMATED AVERAGE PLASMA GLUCOSE)(mg/dL) 6 126 7 154 8 183 9 212 10 240 11 269 12 298 *recom mended ranges-[employer](2010) NOTE: The amount of gl ycated hemoglobin as measured by the HbA1c test may be overestimated in [place] and should not be used as the sole parameter of glycemic burden. Similarly, hemolysis, genetic hemoglobin variants and chemically modified hemoglo bin derivatives (as seen in renal failure, smoking, aspirin use) may also affect glycated hemoglobin levels. ID Date Data Source [id number] 01/31/2019 07:25:00 AM EST [email or web address] [facility] Name Value Range Interpretation Description Data Sup porting Code Source(s) Document(s ) CHOLESTEROL 292 <200 Above high normal The mg/dL [facility] HDL CHOLESTEROL 54 mg/dL >50 The [facility] TRIGLYCERIDES 291 <150 Above high normal The mg/dL [facility] HDL % OF 18 % >14 The CHOLESTEROL [facility] Evaluation: AVERAGE RISK CHOL/HDL RATIO 5.4 NA <5.8 The [place] F or Family [facility] Evaluation: AVERAGE RISK HDL/LDL RATIO 3.33 NA <3.56 The [place] Fo r [facility] LDL CHOLESTEROL 180 mg/dL <100 Above high normal The [facility] VLDL CHOLESTEROL ALEJANDRO 58 mg/dL 7-32 Above high normal T he [facility] NON HDL CHOL. (LDL+VLDL) 238 mg/dL <130 Above high normal The [facility] ID Date Data Source [id number] 01/31/2019 07:25:00 AM EST The [facility] Name Value Range Interpretation Description Data Sup porting Code Source(s) Document(s ) PROTEIN, 7.1 g/dL 5.9-8.4 The TOTAL, SERUM [facility] ALBUMIN 4.2 g/dL 3.5-5.2 The [facility] GLOBULIN, 2.9 g/dL 1.7-3.7 The TOTAL [facility] A/G RATIO 1.4 1.1-2.9 The Ratio [facility] SODIUM 141 135-147 The mmol/L [facility] POTASSIUM 4.6 3.5-5.5 The mmol/L [facility] CHLORIDE 101 96-108 The mmol/L [facility] CARBON DIOXIDE 25 22-29 The mmol/L [facility] UREA NITROGEN 14 mg/dL 6-20 The (BUN) [facility] CREATININE 0.96 0.49-1.0 The mg/dL 2 [facility] EGFR 68 >or=60 The mL/min [facility] EGFR 79 >or=60 The COLOMBIAN mL/min [facility] BUN/CREATININE 14.6 10.0-28. The RATIO Ratio 0 [facility] CALCIUM 9.7 8.6-10.4 The mg/dL [facility] BILIRUBIN, <0.2 <1.2 The TOTAL mg/dL [facility] ALKALINE 68 U/L 40-156 The PHOSPHATASE [facility] AST (SGOT) 21 U/L <32 The [facility] ALT (SGPT) 12 U/L <33 The [facility] GLUCOSE 106 70-99 Above high normal The mg/dL [facility] ID Date Data Source [id number] 02/01/2019 12:11:00 PM EST The [facility] Name Value Range Interpretation Description Data Sup porting Code Source(s) Document(s ) QUANTIFER POSITIVE NEGATIVE Abnormal (applies The Institut e ON-TB to non-numeric For Family GOLD results) Health SITE: CYTOLOGY NIL 0.12 IU/mL The [facility] Health SITE: CYTOLOGY TB1 ANTIGEN-NIL VALUE 1.89 IU/ml The Ins titute For [facility] SITE: CYTOLOGY TB2 ANTIGEN-NIL VALUE 1.02 IU/ml The Ins titute [facility] SITE: CYTOLOGY MITOGEN NIL >10.00 IU/ml The [facility] or [facility] SITE: CYTOLOGYComment: NOTE: DIAGNOSIN G OR EXCLUDING TUBERCULOSIS DISEASE, ANDASSESSING THE PROBABILITY OF LTBI, RE QUIRES A COMBINATION OFEPIDEMIOLOGICAL, HISTORICAL, MEDICAL, AND DIAGNOSTIC FIND INGS THATSHOULD BE TAKEN INTO ACCOUNT WHEN INTERPRETING QUANTIFERON-TB GOLD PLUSRES ULTS. SEE GENERAL GUIDANCE ON THE DIAGNOSIS AND TREATMENT OF TBDISEASE ANDLTBI([email or web address]).* NIL TB1-NIL TB2-NIL MITOGEN-NIL QFT [IU/ML] [IU/ML] [IU/ML] [IU/ML] PLUS RESULT </=8.00 (>/=0.35 ANY ANY POSITIVE >/=25%NIL) </=8.00 ANY (>/=0.35 ANY POSIT EYAL >/=25%NIL) * * </=8.00 <0.35 <0.35 >/=0.50 NEGATIVE OR OR (>/=0.35 (>/=0.35 <25% NIL) <25%NIL) </=8.00 <0.35 <0.35 <0.50 INDETERMINATE OR OR (>/=0.35 (>/=0.35 <25%NIL) <25%NIL) >8.00 ANY ANY ANY INDETERMINATE *NOTE: IN CLINICAL STUDIES, LESS THAN 0.25% OF SUB JECTS HAD INTERFERONGAMMA LEVELS OF >8.0 IU/ML FOR THE NIL CONTROL.NOTE: THE MAGN ITUDE OF THE MEASURED INTERFERON GAMMA LEVEL CANNOT BECORRELATED TO STAGE OR DEGREE O F INFECTION, LEVEL OF IMMUNERESPONSIVENESS OR, LIKELIHOOD FOR PROGRESSION TO ACTIVE DISEASE. APOSITIVE TB RESPONSE IN PERSONS WHO ARE NEGATIVE TO MITOGEN IS RARE, BUT HAS BEEN SEEN IN PATIENTS WITH TB DISEASE. THIS INDICATES THE INTERFERONGAMMA RESPO NSE TO TB ANTIGEN IS GREATER THAN THAT TO MITOGEN, WHICH ISPOSSIBLE THE LEVEL O F MITOGEN DOES NOT MAXIMALLY STIMULATE INTERFERONGAMMA PRODUCTION BY LYMPHOCYTE S. ID Date Data Source [id number] 01/17/2019 12:51:18 PM [facility] The [facility] Reason for Visit and Comments: Knee P ain [194] - right knee painVitals (Last Filed):BP 104/70 (Orthostatic Site : Arm - Right, Orthostatic Po- sition : Sitting, Orthostatic Cuff Size : Adult) Pulse - 75 Temp 98 F (36.7 C) (Oral) Resp 18 Ht 5 6" (1.- 676 m) Wt 173 lb (78.5 kg) SpO2 100% BMI 27.92 k g/d7YjukkrbHilary Donald 01/17/2019 12:51 PM SignedI have identified this patient to be Thanh Kaminski, -1965.Chief ComplaintPatient presents with Knee Dale n right knee painBP 104/70 (Orthostatic Site : Arm - Right, Orthostatic Position : Si tting,Orthostatic Cuff Size : Adult) | Pulse 75 | Temp 98 F (36.7 C) (Oral) |Resp 18 | Ht 5 6" (1.676 m) | Wt 173 lb (78.5 kg) | SpO2 100% | BMI 27.92kg/mPati ent reports a pain score of "0-None" in her No pain location entered forpatient.Fatuma WILKINSON Mara (R) 01/17/2019 12:50 PM SignedSUBJECTIVE:53 yo F h/o P TSD, polySUD, SI, SA here as walk-in for knee pain.#Knee Pain-Right tibia fracture one year ago from falling off bench while standing-chronic pain since then at [place] line, has christy, plates, screws, starting PT nextweek.-Worsening of chronic Pain in r ight knee x 1 week-getting worse, feels like knee is giving out when she walks-No med s, no ice, tried tiger balm without relief, heating pad without relief-No fevers chi lls, has not lost ROM, medial aspect hurts most with knee 90-No rashes, no changes in urination, not sexually active-Using cane on left side since accident-[facility] normal, but has not had any newimaging with new pain-Wan ts new ortho doc as well#[facility], residential tx pr ogram-Not currently usingOBJECTIVE:EXAM:BP 104/70 (Orthostatic Site : Arm - Right, Orthostatic Position : Sitting,Orthostatic Cuff Size : Adult) | Pulse 75 | Temp 9 8 F (36.7 C) (Oral) |Resp 18 | Ht 5 6" (1.676 m) | Wt 173 lb (78.5 kg) | SpO2 100% | BMI 27.92kg/mThe patient appears well, in no apparent distress. Alert an d oriented timesthree, pleasant and cooperative. Vital signs are as noted by the nurse.Lungs: CTABHeart: S1, S2, RRR no m/r/gMusculoskeletal:Right knee appear m ore swollenNo warmth, erythemaDiffusely TTP greatest at medial joint lineKnee exam m aneuvers greatly limited by painAble to flex only to about 90 degrees due to painNo a udible clicking or poppingAnterior drawer negativeMcmurray unable to be completed due to painValgus and varus stress limited due to painGait: limping protecting righ tASSESSMENT/PLAN:53 yo F h/o PTSD, polySUD, SI, SA here as walk-in for knee pain.1. Right knee pain, unspecified chronicity- CONSULT TO ORTHOPEDICS- RAD EXAM KNEE, T HREE VIEWS- acetaminophen (TYLENOL) 325 MG Oral tablet; Take TWO tablets (650 mg to nadiya)by mouth every 6 (six) hours as needed for mild pain Dispense: 30 tablet;Refil l: 12. HCM-Patient has f/u appointment with me for Marisela Jones PGY-1KClotilde west DO 01/17/2019 12:51 PM SignedFaculty Supervision of resident with kiara rangel careI was in the room for confirmation of the vazquez historical and physical findi ngs -I discussed the care of Thanh Kaminski with the resident providing the service.My d iscussion with the resident included the patient s history, physical exam,laborat ory findings, and medical decision-making.Patient with PMHx of: PT SD, substance use disorder, h/o unstable housing,currently in substance abuse pro gramPresents today for:#knee pain - traumatic injury in the past. Worsening of chronic pain over lastweek.Vazquez physical findings: using cane, unstable gait, medial joint tenderness.Unable to tolerate any knee maneuvers to further assess pain.Vazquez lab or other diagnostic findings:I agree with the resident s assessment and plan of ca re, primary diagnosis andplan of:#c/f ligamentous injury-will start w/ XRAY-re ferral to ortho-has f/u w/ PTWhen applicable: Preceptor s face to face counseling time : Noa Tucker Diagnosis:M25.561 Right knee pain, uns pecified chronicityPrescriptions as of 01/17/2019 Disp Refills S tart End * acetaminophen (TYLENOL) 325 MG Ora* 30 t* 1 01/17/2019 Class: E Prescribing Route: Oral Sig: Take TWO tablets (650 mg to nadiya) by mouth every 6 (six) hours as needed for mild pain BuPROPion HCl 300 MG Oral TABLET S* 30 t* 2 02/10/2015 Route: Oral Sig: Take O NE tablet (300 mg total) by mouth dailyAllergies As of Date: 01/17/2019 N oted Allergy ReactionASPIRIN 02/10/2015 1 - RashDate Reviewed: 02/10/2015Reviewed by: Arpita Balderas - ReviewedLevel of Service:9920 2 OFFIC/OUTPT VISIT E&M NEW LOW-MOD SEVER* Histo rical Information ----- ------Past Medical and Surgical HistoryM edical And Surgical History Item DateHerpes genitalia 05/10/2011HLD (hyperlipidemia)Collapsed lungBunion 2014CHEMICAL PLEURODESIS FOR PERSISTENT*Family HistoryAdopted: Yes Problem Relation Age of Onset Alcohol /Drug Father Comments: cirrhosis Alcohol/Drug Mother Comments: of aidsFamily Status - Relation Status Age at Father MotherSocial History Marital Status: Unknown Spouse: Years of Education: # children:Social History Emmett pizano Living on the street and in a skilled nursing. Has daughter down south. She is duein A ugust first grand child.Social History Topics Tobacco Use: Yes Cigarettes ( Packs/Day): .3 Years: 30 Start Date: Comment: patient newly diagnosed hiv dis ease doesn t want to quit. Alcohol Use: Yes 0 oz/week 0 Standard drinks or equivalent per week Comment: Last drink 50 days ago. Drink of choice Vodka Drug Use: Yes Cigarettes (Packs/Day): .3 Years: 30 Comment: crack, cocaine, marijuana last used 52 days ago in Rehab Sexually Active: Not Curre ntly Partners with: Male Comment: had sex 1.5 months ago. knows to use con doms. has sold her body for money to get drugs.Immunizations Administered PREVNAR (RSU15-Hgwukt Pneumococcal* 02/10/2015 Tdap 02/10/2015 Name Value Range Interpretation Code Description Data Dannielle rce(s) Supporting Document(s ) Procedure Social History Code Duration Value Status Description Data Source(s ) Alcohol intake 11/26/2019 Current completed Current drinker The I nstitute 12:00:00 AM drinker of of alcohol For Family EDT alcohol (finding) Health (finding) Alcohol intake 10/24/2019 Current completed Current drinker The I nstitute 12:00:00 AM drinker of of alcohol For Family EDT alcohol (finding) Health (finding) Tobacco use and 10/24/2019 Never used completed Never used The Insti tute exposure 12:00:00 AM For Family EDT Health Smoking 10/24/2019 Current every completed Current every day The [place] 12:00:00 AM day smoker smoker For Family EDT Health Alcohol intake 10/11/2019 Current completed Current drinker [facility] 12:00:00 AM drinker of of alcohol For Family EDT alcohol (finding) Health (finding) Alcohol intake 09/12/2019 Current [facility] 12:00:00 AM drinker of For Family EDT alcohol Health (finding) Alcohol intake 03/26/2019 [facility] 12:[facility] AM drinker of For Family EST alcohol Health (finding) Cigarettes 03/26/2019 UNK [facility] [place] smoked current 12:00:00 AM For Famil y (pack per day) - EST Health Reported Cigarette 03/26/2019 UNK [facility] [place] pack-years 12:00:00 AM For Family EST Health Tobacco use and 03/26/2019 Never used [facility] exposure 12:00:00 AM For Family EST Health Tobacco smoking 03/26/2019 Current every [facility] status NHIS 12:00:00 AM day smoker For Family EST Health Cigarette 03/26/2019 UNK [facility] [place] pack-years 12:00:00 AM For Family EST Health Cigarettes 03/26/2019 UNK [facility] [place] smoked current 12:00:00 AM For Famil y (pack per day) - EST Health Reported Cigarettes 02/02/2019 UNK [facility] [place] smoked current 12:00:00 AM For Famil y (pack per day) - EST Health Reported Tobacco smoking 02/02/2019 Current every [facility] status NHIS 12:00:00 AM day smoker For Family EST Health Cigarette 02/02/2019 UNK [facility] [place] pack-years 12:00:00 AM For Family EST Health Alcohol intake 02/02/2019 Current [facility] 12:00:00 AM drinker of For Family EST alcohol Health (finding) Tobacco smoking 01/30/2019 Current every [facility] status NHIS 12:00:00 AM day smoker For Family EST Health Alcohol intake 01/30/2019 Current [facility] 12:00:00 AM drinker of For Family EST alcohol Health (finding) Cigarettes 01/30/2019 UNK [facility] [place] smoked current 12:00:00 AM For Famil y (pack per day) - EST Health Reported Cigarette 01/30/2019 UNK [facility] [place] pack-years 12:00:00 AM For Family EST Health Alcohol intake 01/06/2019 Current [facility] 12:00:00 AM drinker of For Family EDT alcohol Health (finding) Tobacco smoking 01/06/2019 Current every [facility] status NHIS 12:00:00 AM day smoker For Family EDT Health Cigarette 01/06/2019 UNK [facility] [place] pack-years 12:00:00 AM For Family EDT Health Cigarettes 01/06/2019 UNK [facility] [place] smoked current 12:00:00 AM For Famil y (pack per day) - EDT Health Reported Vital Signs ID Date Data Source UNK Name Value Range Interpretation Code Description Data Source(s) Body mass index 27.81 kg/m2 27.81 kg/m2 [facility] (BMI) [Ratio] For Family Health Body weight 71.215 kg 71.215 kg The [facility] Body height 160 cm 160 cm [facility] Respiratory rate 18 /min 18 /min [facility] For [facility] Body temperature 36.89 Leatha 36.89 Leatha [facility] For [facility] Heart rate 79 /min 79 /min The [facility] Diastolic blood 70 mm[Hg] 70 mm[Hg] The Inst[facility] pressure For [facility] Systolic blood 117 mm[Hg] 117 mm[Hg] [facility] pressure For [facility] Body temperature 36.17 Leatha 36.17 Leatha [facility] For [facility] Heart rate 68 /min 68 /min The [facility] Diastolic blood 74 mm[Hg] 74 mm[Hg] The Insti tute pressure For [facility] Systolic blood 112 mm[Hg] 112 mm[Hg] [facility] pressure [facility] Oxygen saturation 98 % 98 % The Ins [facility] in Arterial blood For Fam eros by Pulse oximetry [facility] Body mass index 25.50 kg/m2 25.50 kg/m2 The [facility] tit[facility] (BMI) [Ratio] For [facility] Body weight 71.668 kg 71.668 kg The [facility] Body height 167.6 cm 167.6 cm The [facility] Respiratory rate 17 /min 17 /min The [facility] For [facility] Body temperature 37 Leatha 37 Leatha The [facility] For [facility] Heart rate 78 /min 78 /min The [facility] Diastolic blood 78 mm[Hg] 78 mm[Hg] The Insti tute pressure For Family Health Systolic blood 120 mm[Hg] 120 mm[Hg] [facility] pressure For [facility] Body temperature 36.17 Leatha 36.17 Leatha The [facility] For [facility] Heart rate 81 /min 81 /min [facility] [place] [facility] Diastolic blood 81 mm[Hg] 81 mm[Hg] The Insti tute pressure For Family Health Systolic blood 131 mm[Hg] 131 mm[Hg] [facility] pressure [facility] Oxygen saturation 97 % 97 % The Ins tit[facility] in Arterial blood For Fam eros by Pulse oximetry [facility] Body weight 77.111 kg 77.111 kg The [facility] Body height 167.6 cm 167.6 cm [facility] [place] For [facility] Respiratory rate 16 /min 16 /min The [facility] For Family Health Body temperature 36.72 Leatha 36.72 Leatha The [facility] For Family Health Heart rate 88 /min 88 /min The [facility] Diastolic blood 63 mm[Hg] 63 mm[Hg] The Insti tute pressure For Family Health Systolic blood 114 mm[Hg] 114 mm[Hg] [facility] pressure [facility] Oxygen saturation 100 % 100 % The Ins [facility] in Arterial blood For [place] cooney by Pulse oximetry [facility] Body weight 79.017 kg 79.017 kg The [facility] Body height 167.6 cm 167.6 cm [facility] [place] For [facility] Respiratory rate 18 /min 18 /min The [facility] For [facility] Body temperature 36.67 Leatha 36.67 Leatha The [facility] For [facility] Heart rate 72 /min 72 /min The [facility] Diastolic blood 71 mm[Hg] 71 mm[Hg] The Insti tute pressure For Family Health Systolic blood 107 mm[Hg] 107 mm[Hg] [facility] pressure [facility] Oxygen saturation 100 % 100 % The Ins tit[facility] in Arterial blood For [place] cooney by Pulse oximetry [facility] Body weight 78.472 kg 78.472 kg The [facility] Body height 167.6 cm 167.6 cm [facility] [place] For [facility] Respiratory rate 18 /min 18 /min The [facility] For [facility] Body temperature 36.67 Leatha 36.67 Leatha The [facility] For [facility] Heart rate 75 /min 75 /min The [facility] Diastolic blood 70 mm[Hg] 70 mm[Hg] The Insti tute pressure For Family Health Systolic blood 104 mm[Hg] 104 mm[Hg] [facility] pressure [facility] Patient Treatment Plan of Care Planned Activity Planned Date Details Description Data Source (s) Mirtazapine 15 MG Oral 12/11/2019 12:00:00 [facility] [place] For Tablet AM [facility] aripiprazole 5 MG Oral 12/11/2019 12:00:00 [facility] Tablet AM [facility] aripiprazole 5 MG Oral 10/29/2019 12:00:00 [facility] Tablet AM EDT [facility] Mirtazapine 15 MG Oral 10/29/2019 12:00:00 [facility] [place] For Tablet AM [facility] ammonium lactate 120 10/11/2019 12:00:00 [facility] [place] For MG/ML Topical Lotion AM [facility] Clotrimazole 10 MG/ML 10/11/2019 12:00:00 [facility] [place] For Topical Solution [facility] Family [facility] th Mirtazapine 15 MG Oral 05/07/2019 12:00:00 [facility] [place] For Tablet AM [facility] 24 HR Bupropion 05/07/2019 12:00:00 [facility] For Hydrochloride 150 MG [facility] Extended Release Oral Tablet aripiprazole 5 MG Oral 05/07/2019 12:00:00 [facility] [place] For Tablet AM [facility] Prazosin 1 MG Oral 12/13/2018 12:00:00 [facility] [place] For Capsule AM [facility] Mirtazapine 15 MG Oral 05/31/2018 12:00:00 [facility] [place] For Tablet [facility] 24 HR Bupropion 02/10/2015 12:00:00 [facility] For Hydrochloride 300 MG AM EST Family [facility] Extended Release Oral Tablet
--- NOTE | 2019-12-28 11:49 | BHS.RME ---
2018 N Coronavirus Screen - COVID-19 Screening Questions Dx of COVID-19 or had a positive test in the last 4 weeks?: No Contact with known/suspected COVID patient in last 14 days?: No Any of these symptoms or contact with someone who has?: None Traveled domestically/internationally in the last 14 days?: No Screen score: 0 Screen result: Further Evaluation Substance Use & Tx History - Substance Use History Alcohol Substance amount: 2 pints vodka Frequency of use: Daily Substance route: Oral Date of Last Use: 12/28/19 (started age 16) Cocaine-Crack Substance amount: 200-300$ Frequency of use: Daily Substance route: Smoking Date of Last Use: 12/24/19 (started age 17) Marijuana/Hashish Substance amount: $20 Frequency of use: Daily Substance route: Smoking Date of Last Use: 12/24/19 (started age 17) Nicotine Substance amount: 4 ciggs Frequency of use: Daily Substance route: Smoking Date of Last Use: 12/28/19 (started age 13) - Last Treatment Date of last treatment: 05/2018 completed Treatment type: Substance Use Disorder (MAXIMILIANO) Where was last treatment: Detox CIWA Nausea/Vomitin-Mild Nausea/No Vomiting Muscle Tremors: 3 Anxiety: 4-Mod. Anxious/Guarded Agitation: 4-Moderately Restless Paroxysmal Sweats: 4-Forehead w/Sweat Beads Orientation: 1-Uncertain about Date Tacttile Disturbances: 0-None Auditory Disturbances: 0-None Visual Disturbances: 0-None Headache: 1-Very Mild CIWA-Ar Total Score: 18
--- NOTE | 2019-12-28 13:45 | HP ---
CIWA Score Nausea/Vomitin-Mild Nausea/No Vomiting Muscle Tremors: 3 Anxiety: 4-Mod. Anxious/Guarded Agitation: 4-Moderately Restless Paroxysmal Sweats: 4-Forehead w/Sweat Beads Orientation: 1-Uncertain about Date Tacttile Disturbances: 0-None Auditory Disturbances: 0-None Visual Disturbances: 0-None Headache: 1-Very Mild CIWA-Ar Total Score: 18 - Admission Criteria OASAS Guidelines: Admission for Medically Managed Detox: Requires at least one of the followin. CIWA greater than 12 2. Seizures within the past 24 hours 3. Delirium tremens within the past 24 hours 4. Hallucinations within the past 24 hours 5. Acute intervention needed for co occurring medical disorder 6. Acute intervention needed for co occurring psychiatric disorder 7. Severe withdrawal that cannot be handled at a lower level of care (continued vomiting, continued diarrhea, abnormal vital signs) requiring intravenous medication and/or fluids 8. Admitting History and Physical - Admission Chief Complaint: Ms. Kaminski is a 54 yo woman who presents to [facility] requesting admission for alcohol use disorder. History of Present Illness: Ms. Kaminski is a 54 yo woman who presents to [facility] requesting admission for alcohol use disorder. She was last here in May of 2018 when she completed detox. She states she was sober for 10 months and relapsed 6 mos. She states her relapse was due to "allowing another person to dictate my actions". PMH: Asthma/no inhaler in years, prediabetes, HLD: no meds in a while PSH: tubal ligation, 2 bunions, pleurodesis with 4 episodes of lung collapse, fracture right tibial plateau: rods/plates/screws Psych: depression, admitted to hospital in 2014 in 2014, no meds, stopped 6 mos ago SOC: homeless, penitentiary Legal: none Substance Use History Alcohol Substance amount: 2 pints vodka Frequency of use: Daily Substance route: Oral Date of Last Use: 12/28/19 (started age 16) Cocaine-Crack Substance amount: 200-300$ Frequency of use: Daily Substance route: Smoking Date of Last Use: 12/24/19 (started age 17) Marijuana/Hashish Substance amount: $20 Frequency of use: Daily Substance route: Smoking Date of Last Use: 12/24/19 (started age 17) Nicotine Substance amount: 4 ciggs Frequency of use: Daily Substance route: Smoking Date of Last Use: 12/28/19 (started age 13) Tylenol #3, pt had rx prescribed after fall down stairs one week ago, last taken 2 days ago Marya Kaminski, 1965 Search Date: 12/28/2019 13:51:07 PM The Drug Utilization Report below displays all of the controlled substance prescriptions, if any, that your patient has filled in the last twelve months. The information displayed on this report is compiled from pharmacy submissions to the Department, and accurately reflects the information as submitted by the pharmacies. This report was requested by: Aviva Valiente | Reference #: [id number] There are no results for the search terms that you entered. History Source: Patient Limitations to Obtaining History: No Limitations - Past Medical History ...LMP: 09/16/14 - Smoking History Smoking history: Former smoker Have you smoked in the past 12 months: Yes Aproximately how many cigarettes per day: 5 If you are a former smoker, when did you quit?: 2018 - Alcohol/Substance Use Hx Alcohol Use: Yes Admission [facility] Allergies/Adverse Reactions: Allergies Allergy/AdvReac Type Severity Reaction Status Date / Time aspirin Allergy Severe Hives Verified 12/28/19 13:47 Exam Limitations: No Limitations - Ebola screening Have you traveled outside of the country in the last 21 days: No Have you been sick,other than usual withdrawal symptoms: No Do you have a fever: No - Review of Systems Constitutional: Unintentional Wgt. Loss (25 lb weight loss in the past few mos) EENT: reports: Blurred Vision (has glasses, not with her, left glasses in a cab) Respiratory: reports: No Symptoms reported Cardiac: reports: No Symptoms Reported GI: reports: No Symptoms Reported : reports: No Symptoms Reported Musculoskeletal: reports: Joint Pain (right knee, fell [place] stairs one week ago, fracture tibia 2 years ago) Integumentary: reports: No Symptoms Reported Neuro: reports: Headache Endocrine: reports: Other (prediabetic) Hematology: reports: No Symptoms Reported Psychiatric: reports: Depressed (no SI) Patient History - Patient Medical History Hx Anemia: No Hx Asthma: Yes Hx Chronic Obstructive Pulmonary Disease (COPD): No Hx Cancer: No Hx Cardiac Disorders: No Hx Congestive Heart Failure: No Hx Hypertension: No Hx Hypercholesterolemia: No Hx Pacemaker: No HX Cerebrovascular Accident: No Hx Seizures: No Hx Dementia: No Hx Diabetes: Yes Hx Gastrointestinal Disorders: No Hx Liver Disease: No Hx Genitourinary Disorders: No Hx Sexually Transmitted Disorders: Yes (herpes 89 was treated, syphillis 1991 was treated.) Hx Renal Disease (ESRD): No Hx Thyroid Disease: No Hx Human Immunodeficiency Virus (HIV): No Hx Hepatitis C: No Hx Depression: Yes Hx Suicide Attempt: Yes (last attempt 2012 , hospitalized , now medicated ) Hx Bipolar Disorder: No Hx Schizophrenia: No - Patient Surgical History Past Surgical History: Yes Hx Neurologic Surgery: No Hx Cataract Extraction: No Hx Cardiac Surgery: No Hx Lung Surgery: Yes (collapsed lung 4x, last experience and surgery 2007) Hx Breast Surgery: No Hx Breast Biopsy: No Hx Abdominal Surgery: No Hx Appendectomy: No Hx Cholecystectomy: No Hx Genitourinary Surgery: No Hx Section: Yes (Fx right tibia June 2017) Hx Orthopedic Surgery: Yes (both feet bunions.) Anesthesia Reaction: No - Reproductive History Last Menstrual Period: 09/16/14 - Smoking Cessation Smoking history: Former smoker Have you smoked in the past 12 months: Yes Aproximately how many cigarettes per day: 4 If you are a former smoker, when did you quit?: 2018 Hx Chewing Tobacco Use: No Initiated information on smoking cessation: Yes 'Breaking Loose' booklet given: 12/28/19 Admission Physical Exam [facility] - Vital Signs Vital Signs: LEONOR 0 UDS: MOP vs: 134/81, 79, 18, 97.2 - Physical General Appearance: Yes: No Apparent Distress, Nourished, Appropriately Dressed HEENTM: Yes: EOMI, Hearing grossly Normal, Normocephalic, Normal Voice Respiratory: Yes: Lungs Clear, No Respiratory Distress, No Accessory Muscle Use Neck: Yes: Within Normal Limits, Supple Breast: Yes: Breast Exam Deferred Cardiology: Yes: Regular Rhythm, Regular Rate Abdominal: Yes: Normal Bowel Sounds, Non Tender, Flat, Soft Genitourinary: Yes: Other (deferred) Back: Yes: Normal Inspection Musculoskeletal: Yes: Gait Steady Extremities: Yes: Normal Inspection, Non-Tender Neurological: Yes: Alert, Normal Response Integumentary: Yes: Normal Color, Dry, Warm - Diagnostic (1) Nicotine dependence Current Visit: Yes Status: Acute (2) Prediabetes Current Visit: Yes Status: Acute (3) HLD (hyperlipidemia) Current Visit: Yes Status: Acute (4) Alcohol dependence with withdrawal Current Visit: No Status: Acute Qualifiers: Complication of substance-induced condition: uncomplicated Qualified Code(s): F10.230 - Alcohol dependence with withdrawal, uncomplicated (5) Cocaine dependence Current Visit: No Status: Chronic Cleared for Admission S - Detox or Rehab [facility] Level of Care: Medically Managed Detox Regimen/Protocol: Librium Inpatient Rehab Admission - Rehab Decision to Admit Inpatient rehab admission?: No
[2019-12-28 13:47] VITALS: BMI 25.0
[2019-12-28] MEDS ORDERED: MENTHOL/PHENOL 1 EACH UD MM PRN (13:53)
[2019-12-28] MEDS ORDERED: ACETAMINOPHEN 325 MG TABLET (FP) PO PRN ×2 (13:53)
[2019-12-28] MEDS ORDERED: BISMUTH SUBSALICYLATE 524 MG/30 ML UD PO PRN (13:53)
[2019-12-28] MEDS ORDERED: MAGNESIUM HYDROX 2400MG/30ML ORAL SUSPENSION 30 ML CUP PO PRN (13:53)
[2019-12-28] MEDS ORDERED: MAG HYDROX/AL HYDROX/SIMETH 30 ML UNIT-DOSE CUP PO PRN (13:53)
[2019-12-28] MEDS ORDERED: IBUPROFEN 400 MG TABLET (FP) PO PRN (13:53)
[2019-12-28] MEDS ORDERED: MAGNESIUM CITRATE 300 ML BOTTLE PO PRN (13:53)
[2019-12-28] MEDS ORDERED: ONDANSETRON *ODT* 4 MG TABLET SL PRN (13:53)
[2019-12-28] MEDS ORDERED: chlordiazePOXIDE HCL 25 MG CAPSULE PO PRN (13:53)
[2019-12-28] MEDS ORDERED: NICOTINE POLACRILEX 2 MG GUM BUC PRN (13:53)
[2019-12-28] MEDS ORDERED: METHOCARBAMOL 500 MG TABLET PO PRN (13:53)
--- OUTSIDE RECORDS SUMMARY | 2019-12-28 14:09 | XMS ---
:1965 Author Organization [facility] Care Team Providers Name Role Phone Carolann Jean (R) Unavailable SHANE Unavailable Unavailable KAMINSKI Unavailable Unavailable NURSING, FM Unavailable Unavailable KAREN, (R) Unavailable Unavailable Aminta Unavailable Aska Unavailable [...] is protected by Article 27-F of the [facility] Public Health law. If you continue you may haveaccess to information: Regarding HIV / AIDS; Provided by facilities licensed or operated by the [facility] Office of Mental Health; or Provided by the [facility] Office for People With Developmental Disabilities. If such information is present, then the following [facility] mandated warning applies: This information has been [...] law may result in a fine or longterm sentence or both. A general authorization for the release of medical or other information is NOT sufficient authorization for further disclosure. Allergies and Adverse Reactions Type Description Substance Reaction Status Data Source(s ) DRUG INGREDI ASPIRIN DL-LYSINE ASPIRIN DL-LYSINE [facility] DRUG ASPIRIN ASPIRIN [facility] Encounters Encounter Providers Location Date Indications Data Source(s ) Outpatient Att[facility]: [facility] EDT Patient admitted. Outpatient Attender: OFELIA 12/26/2019 09:14:20 AM [facility] Patient admitted. Outpatient Attender: BILLIE LYNN 12/16/2019 02:07:[address] [facility] Patient admitted. Outpatient Attender: Lexi 12/11/2019 12:00:00 AM [facility] - 12/11/2019 [facility] [place] 10:53:13 AM EDT Patient admitted. Outpatient Attender: BILLIE LYNN 12/09/2019 12:00:00 AM The [facility] - 12/09/2019 [facility] ealt 02:29:44 PM EDT Patient admitted. Outpatient Attender: Lexi 12/03/2019 03:02:53 PM The [facility] Patient admitted. Outpatient Attender: Lexi 12/03/2019 12:00:00 AM The [facility] Patient admitted. Outpatient Attender: BEV JONES 11/26/2019 12:00:00 AM The [facility] - 11/26/2019 12:39:14 [facility] EDT Patient admitted. Outpatient Attender: Luma Moreland 11/21/2019 12:00:[address] [facility] Patient admitted. Outpatient Attender: BILLIE LYNN 11/18/2019 02:13:[address] [facility] Patient admitted. Outpatient Attender: BILLIE LYNN 11/11/2019 12:00:00 AM The [facility] - 11/11/2019 [facility] ealt 02:29:54 PM EDT Patient admitted. Outpatient Attender: BILLIE LYNN 11/04/2019 02:12:[address] [facility] Patient admitted. Outpatient Attender: Lexi 10/29/2019 12:00:00 AM The [facility] - 10/29/2019 [facility] ealt 04:39:27 PM EDT Patient admitted. Outpatient Attender: Lexi 10/29/2019 12:00:00 AM The [facility] Patient admitted. Outpatient Attender: BILLIE LYNN 10/28/2019 12:00:[address] [facility] Patient admitted. Outpatient Attender: Isabel 10/24/2019 12:00:00 AM The [facility]: [facility] DENT[facility] Patient admitted. Outpatient Attender: Lexi 10/22/2019 01:05:20 PM The [facility] Patient admitted. Outpatient Attender: Lexi 10/22/2019 12:00:00 AM The [facility] Patient admitted. Outpatient Attender: BILLIE LYNN 10/21/2019 01:42:[address] [facility] Patient admitted. Outpatient Attender: Frederick Greene 10/11/2019 12:00:00 AM The [facility] - 10/11/2019 [facility] ealt 12:31:17 PM EDT Patient admitted. Outpatient Attender: Lexi 10/04/2019 12:00:00 AM The [facility] Patient admitted. Outpatient Attender: BILLIE LYNN 09/30/2019 12:00:00 AM The [facility] 2019 [facility] ealt 11:17:55 AM EDT Patient admitted. Outpatient Attender: Isabel Layne 09/12/2019 12:00:[address] [facility] Patient admitted. Outpatient Attender: BILLIE LYNN 09/09/2019 02:43:[address] [facility] Patient admitted. Outpatient Attender: BILLIE LYNN 09/02/2019 12:00:[address] [facility] Patient admitted. Outpatient Attender: Lexi 08/29/2019 10:26:12 AM The [facility] Patient admitted. Outpatient Attender: Lexi 08/29/2019 12:00:00 AM The [facility] Patient admitted. Outpatient Attender: Lexi 08/28/2019 12:00:00 AM [facility] - 08/28/2019 [facility] 09:34:03 AM EDT Patient admitted. Outpatient Attender: Lexi 08/20/2019 03:06:46 PM The [facility] Patient admitted. Outpatient Attender: Lexi 08/20/2019 12:00:00 AM The [facility] Patient admitted. Outpatient Attender: BILLIE LYNN 08/19/2019 12:00:00 AM The [facility] - 08/19/2019 [facility] 02:45:51 PM EDT Patient admitted. Outpatient Attender: CHARLIE 08/18/2019 03:41:[address] [facility] Patient admitted. Outpatient Attender: BILLIE LYNN 08/12/2019 02:37:[address] [facility] Patient admitted. Outpatient Attender: BILLIE LYNN 08/05/2019 12:00:00 AM The [facility] - 08/05/2019 [facility] 03:21:21 PM EDT Patient admitted. Outpatient Attender: BILLIE LYNN 07/22/2019 12:00:00 AM The [facility] 07/22/2019 [facility] 03:27:17 PM EDT Patient admitted. Outpatient Attender: CHARLIE 07/21/2019 03:19:37 PM The [facility] Patient admitted. Outpatient Attender: BILLIE LYNN 07/15/2019 12:00:[address] [facility] Patient admitted. Outpatient Attender: BILLIE LYNN 07/08/2019 02:10:[address] [facility] Patient admitted. Outpatient Attender: BILLIE LYNN 07/01/2019 12:00:00 AM The [facility] EDT - 07/01/2019 [facility] 10:58:59 PM EDT Patient admitted. Outpatient Attender: BILLIE LYNN 06/24/2019 12:00:00 AM The [facility] EDT - 06/24/2019 [facility] 09:02:45 PM EDT Patient admitted. Outpatient Attender: BILLIE LYNN 06/17/2019 12:00:00 AM The [facility] EDT - 06/17/2019 [facility] 10:57:55 PM EDT Patient admitted. Outpatient Attender: BILLIE LYNN 06/10/2019 12:00:00 AM The [facility] EDT - 06/10/2019 [facility] 08:05:20 PM EDT Patient admitted. Outpatient Attender: BILLIE LYNN 06/03/2019 12:00:[address] [facility] Patient admitted. Outpatient Attender: BILLIE LYNN 05/27/2019 12:00:00 [facility] 10:12:55 PM EDT Patient admitted. Outpatient Attender: BILLIE LYNN 05/20/2019 12:00:00 AM The [facility] EST - 05/20/2019 Family [facility] 03:04:52 PM EDT Patient admitted. Outpatient Attender: BILLIE LYNN 05/13/2019 12:00:00 AM The [facility] EST - 05/13/2019 [facility] 04:45:07 PM EST Patient admitted. Outpatient Attender: Lexi 05/07/2019 12:00:00 AM The [facility] EST - 05/07/2019 [facility] 09:50:21 AM EST Patient admitted. Outpatient Attender: BILLIE LYNN 05/06/2019 12:00:00 AM The [facility] EST - 05/07/2019 [facility] 09:44:08 AM EST Patient admitted. Outpatient Attender: BILLIE LYNN 04/22/2019 12:00:00 AM The [facility] EST - 04/22/2019 [facility] 05:04:37 PM EST Patient admitted. Outpatient Attender: BILLIE LYNN 04/15/2019 01:50:21 PM The [facility] EST - 04/15/2019 [facility] 11:45:34 PM EST Patient admitted. Outpatient Attender: Krista 04/13/2019 08:37:48 AM The [facility] Patient admitted. Outpatient Attender: BILLIE LYNN 04/08/2019 12:00:00 AM The [facility] 04/08/2019 [facility] H ealth 09:55:04 PM EST Patient admitted. Outpatient Attender: BEV JONES 03/26/2019 12:00:00 AM The [facility] 03/26/2019 05:53:12 [facility] PM EST Patient admitted. Outpatient Attender: BILLIE LYNN 03/25/2019 12:00:00 AM The [facility] 03/25/2019 [facility] ealth 10:12:37 PM EST Patient admitted. Outpatient Attender: CHARLIE 03/22/2019 07:40:42 PM The [facility] Patient admitted. Outpatient Attender: Lexi 03/19/2019 03:32:24 PM The [facility] Patient admitted. Outpatient Attender: Lexi 03/19/2019 12:00:00 AM The [facility] Patient admitted. Outpatient Attender: BILLIE LYNN 03/11/2019 12:00:00 AM The [facility] 04/04/2019 [facility] ealth 08:05:03 AM EST Patient admitted. Outpatient Attender: CHARLIE 03/10/2019 03:01:41 PM The [facility] Patient admitted. Outpatient Attender: CHARLIE 03/10/2019 02:09:33 PM The [facility] Patient admitted. Attender: Carolann 03/06/2019 03:31:07 PM The [facility] Outpatient Attender: BILLIE LYNN 03/04/2019 12:00:00 AM The [facility] 03/04/2019 [facility] 04:03:06 PM EST Patient admitted. Outpatient Attender: BEV JONES 03/02/2019 02:08:39 PM The [facility] Patient admitted. Outpatient Attender: Lexi 02/26/2019 01:26:16 PM The [facility] Patient admitted. Outpatient Attender: BILLIE LYNN 02/25/2019 12:00:00 AM The [facility] Patient admitted. Outpatient Attender: BILLIE LYNN 02/11/2019 12:00:00 AM The [facility] - 02/11/2019 [facility] ealt 05:49:30 PM EST Patient admitted. Outpatient Attender: BEV JONES 02/06/2019 07:34:41 PM The [facility] Patient admitted. Outpatient Attender: DRAKE 02/06/2019 02:37:43 PM The [facility] Patient admitted. Outpatient Attender: BILLIE LYNN 02/04/2019 12:00:00 AM The [facility] Patient admitted. Outpatient Attender: Lexi 02/02/2019 12:00:00 AM The [facility] Patient admitted. Outpatient Attender: BEV JONES 01/30/2019 04:39:44 PM The [facility] 01/30/2019 08:12:05 Family Health PM EST Patient admitted. Outpatient Attender: BILLIE LYNN 01/28/2019 04:24:12 PM The [facility] Patient admitted. Outpatient Attender: BILLIE LYNN 01/21/2019 12:00:00 AM The [facility] 01/21/2019 [facility] ealt 03:15:02 PM EST Patient admitted. Outpatient Attender: BILLIE LYNN 01/20/2019 08:04:53 AM The [facility] Patient admitted. Outpatient Attender: BEV 01/17/2019 12:00:[facility] 01/17/2019 Family [facility] NURSING 12:51:18 PM EST Patient admitted. Outpatient Attender: BILLIE LYNN 01/14/2019 12:00:00 AM The [facility] 01/14/2019 Family ealt 03:38:47 PM EST Patient admitted. Outpatient Attender: BILLIE LYNN 01/07/2019 12:00:00 AM The [facility] - 01/20/2019 [facility]alt 08:02:55 AM EST Patient admitted. Outpatient Attender: BILLIE LYNN 12/31/2018 12:00:00 AM The [facility] - 12/31/2018 [facility] 11:37:57 AM EDT Patient admitted. Immunizations Vaccine Date Status Description Data Source(s) Influenza, 11/26/2019 completed Influenza, 11/26/2019 The injectable, 12:00:00 AM Injectable,(cciiv4), [facility] MDCK, EDT Quadrivalent, For Corwin bello preservative Preservative Free Health free, quadrivalent Medications Medication Brand Start Product Dose Route Administrative Pharmacy [facility] Indications Reaction Description Data Name Date Form Instructions Instructions Source(s) Mirtazapine Mirtaz 15 mg Oral active Post Take O NE The 15 MG Oral apine 2020 traumatic tablet ( 15 [facility] Tablet (REMER 12:00: stress mg total) by For Family Mirtazapine ON) 15 00 AM disorder mouth daily Health (REMERON) MG EDT 15 MG Oral Oral Tab Tab Post traumatic stress disorder aripiprazole 5 Aripiprazole 5 12/11/[address] Take The MG Oral Tablet MG Oral Tab 12:00:00 AM mg trauma tic ONE [facility] Aripiprazole 5 EDT stress tablet F or Family MG Oral Tab disorder (5 mg Hea lth total) by mouth daily Post traumatic stress disorder Mirtazapine Mirtazapine 10/29/2019 15 Oral aborted Post Take The 15 MG Oral (REMERON) 15 12:00:00 AM mg traumatic ONE [facility] Tablet MG Oral Tab EDT stress tablet Fo r Family Mirtazapine disorder (15 mg He alth (REMERON) 15 total) MG Oral Tab by mouth daily Post traumatic stress disorder aripiprazole 5 Aripiprazole 10/29/2019 5 Oral aborted Pos t Take The MG Oral Tablet 5 MG Oral Tab 12:00:00 AM mg trau matic ONE [facility] Aripiprazole 5 EDT stress tablet F or Family MG Oral Tab disorder (5 mg Hea lth total) by mouth daily Post traumatic stress disorder ammonium Ammonium 10/11/2019 active Eczema, M ix with The lactate 120 Lactate 12 % 12:00:00 AM unspecif ied vaseline [facility] MG/ML Apply EDT type and apply For Fami ly Topical externally bid Health Lotion Lotion Ammonium Lactate 12 % Apply externally Lotion Eczema, unspecified type Clotrimazole clotrimazole 1 10/11/2019 active Veronika a Apply The 10 MG/ML % Apply 12:00:00 AM pedis inter digitally [facility] Topical externally EDT of bid as dire cted For Family Solution external both Health clotrimazole 1 solution feet % Apply externally external solution Tinea pedis of both feet Mirtazapine Mirtazapine 05/07/2019 15 Oral active Post Take The 15 MG Oral (REMERON) 15 12:00:00 AM mg traumatic ONE [facility] Tablet MG Oral Tab EST stress tablet Fo r Family Mirtazapine disorder (15 mg He alth (REMERON) 15 total) MG Oral Tab by mouth daily Post traumatic stress disorder Take ONE tablet (15 mg total) by mouth d aily aripiprazole 5 Aripiprazole 05/07/2019 5 Oral aborted Pos t Take The MG Oral Tablet 5 MG Oral Tab 12:00:00 AM mg trau matic ONE [facility] Aripiprazole 5 EST stress tablet F or Family MG Oral Tab disorder (5 mg Hea lth total) by mouth daily Post traumatic stress disorder Take ONE tablet (5 mg total) by mouth da eros 24 HR buPROPion 05/07/2019 150 Oral aborted Post Take The Bupropion HCl ER, XL, 12:00:00 AM mg traumatic ONE [facility] Hydrochloride (WELLBUTRIN EST stress ta blet For [...] HCl 500 MG 12:00:00 AM mg ONE [facility] 500 MG Oral Oral Tab EST tablet Fo r Family Tablet (500 mg Health metFORMIN HCl total) 500 MG Oral by Tab mouth 2 (two) times a day Pre-diabetes Take ONE tablet (500 mg total) by mouth 2 (two) times a day Metformin metFORMIN 03/26/2019 500 Oral completed Pre-diabe zohreh Take The hydrochloride HCl 500 MG 12:00:00 AM mg ONE [facility] 500 MG Oral Oral Tab EST tablet Fo r Family Tablet (500 mg Health metFORMIN HCl total) 500 MG Oral by Tab mouth 2 (two) times a day Pre-diabetes Take ONE tablet (500 mg total) by mouth 2 (two) times a day Mirtazapine Mirtazapine 03/19/2019 15 Oral completed Post Take The 15 MG Oral (REMERON) 15 12:00:00 AM mg traumatic ONE [facility] Tablet MG Oral Tab EST stress tablet Fo r Family Mirtazapine disorder (15 mg He alth (REMERON) 15 total) MG Oral Tab by mouth daily Post traumatic stress disorder Take ONE tablet (15 mg total) by mouth d aily Prazosin 1 prazosin 1 03/19/2019 1 mg Oral completed Post Take ONE The MG Oral MG Oral 12:00:00 AM traumatic ca psule [facility] Capsule capsule EST stress (1 mg For Corwin bello prazosin 1 disorder total) Hea lth MG Oral by mouth capsule nightly Post traumatic stress disorder Take ONE capsule (1 mg total) by mouth n ight[place] aripiprazole Aripiprazole 03/19/2019 5 Oral completed Pos t Take The 5 MG Oral 5 MG Oral Tab 12:00:00 AM mg traumatic ONE [facility] Tablet EST stress tablet For Famil y Aripiprazole disorder (5 mg He alth 5 MG Oral Tab total) by mouth daily Post traumatic stress disorder Take ONE tablet (5 mg total) by mouth da eros aripiprazole Aripiprazole 02/02/2019 5 Oral completed Pos t Take The 5 MG Oral 5 MG Oral Tab 12:00:00 AM mg traumatic ONE [facility] Tablet EST stress tablet For Famil y Aripiprazole disorder (5 mg He alth 5 MG Oral Tab total) by mouth daily Post traumatic stress disorder Take ONE tablet (5 mg total) by mouth da eros Mirtazapine Mirtazapine 02/02/2019 15 Oral completed Post Take The 15 MG Oral (REMERON) 15 12:00:00 AM mg traumatic ONE [facility] Tablet MG Oral Tab EST stress tablet Fo r Family Mirtazapine disorder (15 mg He alth (REMERON) 15 total) MG Oral Tab by mouth daily Post traumatic stress disorder Take ONE tablet (15 mg total) by mouth bc palacio Prazosin 1 prazosin 1 02/02/2019 1 mg Oral completed Post Take ONE The MG Oral MG Oral 12:00:00 AM traumatic ca psule [facility] Capsule capsule EST stress (1 mg For Corwin talberty prazosin 1 disorder total) Hea lth MG Oral by mouth capsule nightly Post traumatic stress disorder Take ONE capsule (1 mg total) by mouth n ightlsung Cephalexin Cephalexin 01/28/2019 500 Oral completed Take The 500 MG Oral 500 MG Oral 12:00:00 AM mg 500 mg [facility] Capsule Cap EST by For Family mouth Health Take 500 mg by mouth Acetaminophen acetaminophen 01/17/2019 650 Oral compl eted Right knee Take TWO The 325 MG Oral (TYLENOL) 325 12:00:00 AM mg pain, tablets [facility] Tablet MG Oral tablet EST unspecified ( [...] The Oral Capsule Oral capsule 12:00:00 AM [facility] prazosin 1 MG EDT For Fa eugenia Oral capsule Health aripiprazole 5 Aripiprazole 5 12/13/2018 completed The MG Oral Tablet MG Oral Tab 12:00:00 AM [facility] Aripiprazole 5 EDT For F amily MG Oral Tab Health Metformin metFORMIN HCl 06/03/2018 completed Metformin The hydrochloride 500 MG Oral 12:00:00 AM HCl 500 MG [facility] 500 MG Oral Tab EDT For Fami ly Tablet Health metFORMIN HCl 500 MG Oral Tab Metformin HCl 500 MG Mirtazapine 15 Mirtazapine 05/31/2018 aborted daily The [facility] MG Oral Tablet (REMERON) 15 MG 12:00:00 AM For Family Mirtazapine Oral Tab EDT Heal th (REMERON) 15 MG Oral Tab daily 24 HR Bupropion BuPROPion 02/10/2015 300 Oral aborted Depre ssion Take The Hydrochloride HCl 300 MG 12:00:00 AM mg ONE [facility] 300 MG Extended Oral EST tablet Fo r Family Release Oral TABLET SR (300 mg Health Tablet 24 HR total) BuPROPion HCl by 300 MG Oral mouth TABLET SR 24 HR daily Depression Take ONE tablet (300 mg total) by mouth daily Aspirin 81 MG aspirin 81 MG completed daily The [facility] For Delayed Release Oral EC tablet Family Health Oral Tablet aspirin 81 MG Oral EC tablet daily Insurance Providers Payer name Policy type Policy ID Covered Covered constitution party's Policy P stewart / Coverage constitution party ID relationship to Germain Inf ormation type germain UNHC MEDICAID [id number] COMM PLAN GROVER Medicaid [id number] HEALTHCARE Mgd Care GROVER [id number] Self [id number] HEALTHCARE GROVER [id number] Self [id number] HEALTHCARE GROVER [id number] Self [id number] HEALTHCARE METRO PLUS [id number] Self [id number] SLIDING FEE [id number] Self [id number] SLIDING FEE 000 Self 000 [place]ID [place] [id number] Self [id number] [place] [id number] Self [id number] [place]ICAID [place] [id number] Self [id number] CAP MARTHA [id number] Self [id number] CAP MARTHA [id number] Self [id number] [place] Medicaid [id number] HEALTHCARE Mgd Care GROVER [id number] Self [id number] HEALTHCARE GROVER [id number] Self [id number] HEALTHCARE METRO PLUS [id number] Self [id number] METRO PLUS [id number] Self [id number] [facility] [id number] SP [id number] [facility] [id number] SP [id number] STRGY-AFF Problems, Conditions, and Diagnoses Code Display Name Description Problem Type Effective Data Dates Source(s) F12.21 Cannabis use Cannabis use [id number] 02/02/2019 The disorder, moderate, disorder, moderate, 12:00:0 0 AM [facility] in early remission, in early remission, EST For Family dependence dependence Health R45.851 Suicidal ideation Suicidal ideation [id number] 01/07/2019 The 12:00:00 AM [facility] EDT For [facility] F17.200 Tobacco use Tobacco use [id number] 12/31/2018 The disorder, mild, disorder, mild, 12:00:00 AM Ins titute abuse abuse EDT For [facility] F14.20 Cocaine use Cocaine use [id number] 12/31/2018 The disorder, moderate, disorder, moderate, 12:00:0 0 AM [facility] dependence dependence EDT For [facility] 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 [id number] 12/31/2018 The stress disorder stress disorder 12:00:00 AM Ins titute EDT For [facility] Health F14.20 Cocaine use Cocaine use [id number] 12/31/2018 The disorder, moderate, disorder, moderate, 12:00:0 0 AM [facility] dependence dependence EDT For [facility] Dental Appliance Dental Appliance Diagnosis 12/27/2019 Th e 09:25:56 AM [facility] EDT For [facility] Z71.89 Other specified Other specified Diagnosis 12/26/2019 The counseling counseling 09:14:25 AM [facility] EDT For [facility] R73.03 Prediabetes Prediabetes Diagnosis 12/26/2019 The 09:14:25 AM [facility] EDT For [facility] Missed Appointment Missed Appointment Diagnosis 0 The 02:07:33 PM [facility] EDT For [facility] Knee Pain Knee Pain Diagnosis 11/26/2019 The 09:34:01 AM [facility] EDT For [facility] Forms Forms Diagnosis 11/26/2019 The 09:34:01 AM [facility] EDT For [facility] Physical Physical Diagnosis 11/26/2019 The 09:34:01 AM [facility] EDT For [facility] Other Other Diagnosis 11/26/2019 The 09:34:01 AM [facility] EDT For [facility] Z23 Encounter for Encounter for Diagnosis 11/26/2019 The immunization immunization 09:34:01 AM [facility] EDT For [facility] Z00.00 Encounter for Encounter for Diagnosis [...] Only) 03:38:53 PM I nstitute EDT For [facility] Treatment Plan Treatment Plan Diagnosis 10/28/2019 The Review Review 03:38:53 PM [facility] EDT For [facility] Reschedule Reschedule Diagnosis 10/21/2019 The Appointment Appointment 01:42:35 PM [facility] EDT For [facility] S99.929A Unspecified injury Unspecified injury Diagnosis 0 The of unspecified foot, of unspecified foot, 09:59 :20 AM [facility] initial encounter initial encounter EDT For [facility] B35.3 Tinea pedis Tinea pedis Diagnosis 10/11/2019 The 09:59:20 AM [facility] EDT For [facility] L30.9 Dermatitis, Dermatitis, Diagnosis 10/11/2019 The unspecified unspecified 09:59:20 AM [facility] EDT For [facility] B35.1 Tinea unguium Tinea unguium Diagnosis 10/11/2019 The 09:59:20 AM [facility] EDT For [facility] L84 Corns and Corns and Diagnosis 10/11/2019 The callosities callosities 09:59:20 AM [facility] EDT For [facility] S92.901A Unspecified fracture Unspecified fracture Diagnosis [...] The in remission in remission 02:25:07 PM [facility] EDT For Family Health F17.200 Nicotine dependence, Nicotine dependence, Diagnosis 08/18 The unspecified, unspecified, 02:24:21 PM [facility] uncomplicated [facility]plicated [facility] F14.21 Cocaine dependence, Cocaine dependence, Diagnosis 020 The in remission in remission 02:23:34 PM [facility] EDT For [facility] Clinical Supervision Clinical Supervision Diagnosis 08/17 The 03:41:19 PM [facility] EDT For [facility] F32.9 Major depressive Major depressive Diagnosis 05/07/2019 Th e disorder, single disorder, single 08:55:37 AM I nstitute episode, unspecified episode, unspecified EST For Family Health Z12.31 Encounter for Encounter for Diagnosis 03/26/2019 The screening mammogram screening mammogram 01:49:5 5 PM [facility] for malignant for malignant EST For [facility] ly neoplasm of breast neoplasm of breast Health Z12.39 Encounter for other Encounter for other Diagnosis 020 The screening for screening for 01:49:55 PM Institu te malignant neoplasm malignant neoplasm EST For Family of breast of breast Health Follow-up for: Follow-up for: Diagnosis 03/26/2019 The 01:49:55 PM [facility] EST For [facility] Refill Request Refill Request Diagnosis 03/19/2019 The 03:32:24 PM [facility] EST [facility] Health Outreach Outreach Diagnosis 02/26/2019 The 01:26:16 PM [place] EST For [facility] Lab Results Lab Results Diagnosis 02/06/2019 The 07:34:41 PM [place] EST For [facility] F12.20 Cannabis dependence, Cannabis dependence, Diagnosis 02/02 The uncomplicated uncomplicated 11:34:32 AM Institu te EST For [facility] Psychiatric Psychiatric Diagnosis 02/02/2019 The Evaluation Evaluation 10:53:17 AM [place] EST For [facility] G89.29 Other chronic pain Other chronic pain Diagnosis 9 The 04:39:44 PM [place] EST For [facility] M25.561 Pain in right knee Pain in right knee Diagnosis 9 The 04:39:44 PM [place] EST For [facility] Z12.11 Encounter for Encounter for Diagnosis 01/30/2019 The screening for screening for 04:39:44 PM Institu te malignant neoplasm malignant neoplasm EST For Family of colon of colon Health Z11.4 Encounter for Encounter for Diagnosis 01/30/2019 The screening for human screening for human 04:39:4 4 PM [place] immunodeficiency immunodeficiency EST Fo r Family virus [HIV] virus (HIV) Health Emergency Room Visit Emergency Room Visit Diagnosis 01/28 The Follow Up Follow Up 04:24:12 PM [place] EST For [facility] Enrollment Enrollment Diagnosis 01/20/2019 The 08:04:53 AM [facility] F43.10 Post-traumatic Post-traumatic Diagnosis 12/31/2018 The stress disorder, stress disorder, 04:55:33 PM I nstitute unspecified unspecified EDT For [facility] Psychosocial Psychosocial Diagnosis 12/31/2018 The 10:59:56 AM [place] EDT For [facility] Surgeries/Procedures Procedure Description Date Indications Data Source(s) MAXILLARY MAXILLARY Routine 12/27/2019 Encounter 12/27/2019 Enco unter The PARTIAL PARTIAL 9:00 AM EDT for dental 09:00:00 AM for d ental [place] DENTUR DENTUR examination EDT examination For Family RESIN BASE RESIN BASE and cleaning and c leaning Health TRY-IN TRY-IN without without abnormal abnormal findings findings Encounter for dental examination and phillip aning without abnormal findings FLUCELVAX, FLUCELVAX, Routine 11/26/2019 Need for 11/26/2019 Nee d for The INFLUENZA, INFLUENZA, 10:59 AM prophylactic 10:59:35 AM prophylactic [place] CCIIV4, CCIIV4, EDT vaccination EDT vaccination For Family PSRV FREE, PSRV FREE, and and He alth 4YRS+, 0.5 4YRS+, 0.5 inoculation inocul ation ML, ML, against against PREFILLED PREFILLED influenza influenza SYRINGE SYRINGE Need for prophylactic vaccination and in oculation against influenza MAXILLARY MAXILLARY Routine 10/24/2019 10/24/2019 The PARTIAL DENTUR PARTIAL DENTUR 9:00 AM EDT 09:00: 00 AM [place] RESIN BASE RESIN BASE EDT Fo r Family WAXBITE WAXBITE Health MAXILLARY MAXILLARY Routine 09/12/2019 09/12/2019 The PARTIAL DENTUR PARTIAL DENTUR 9:00 AM EDT 09:00: 00 AM [place] RESIN BASE RESIN BASE EDT Fo r Family IMPRESSION FINAL IMPRESSION FINAL Health FECAL GLOBIN BY FECAL GLOBIN BY 03/05/201903/05 The IMMUNOCHEMISTRY IMMUNOCHEMISTRY 12:00 AM 12:00:0 0 AM [place] EST EST For [facility] HGA1C (HGB HGA1C (HGB Routine 01/30/2019 Health 01/30/2019 Heal th The GLYCOSYLATED) GLYCOSYLATED) 6:30 PM EST care 11:30:00 PM care [place] mainte EST mainte For [facility] Healthcare maintenance FECAL GLOBIN BY FECAL GLOBIN BY Routine 01/30/2019 Colon 01/30 Colon The IMMUNOCHEMISTRY IMMUNOCHEMISTRY 6:30 PM EST cancer 11:3 0:00 PM cancer [place] screening EST screening For Family Health Colon cancer screening COMP COMP Routine 01/30/2019 Healthcare 01/30/2019 Healthc are The METABOLIC METABOLIC 6:30 PM EST maintenance 11:30:00 PM maintenance [place] PANEL PANEL EST For [facility] Healthcare maintenance LIPID LIPID Routine 01/30/2019 Healthcare 01/30/2019 Healthc are The PANEL PANEL 6:30 PM EST maintenance 11:30:00 PM [facility] EST For [facility] Healthcare maintenance HEP B HEP B Routine 01/30/2019 Healthcare 01/30/2019 Healthc are The SURFACE SURFACE 6:30 PM EST maintenance 11:30:00 PM [facility] AG AG EST For [facility] (HBSAG) (HBSAG) Health Healthcare maintenance 4TH GEN HIV 4TH GEN HIV Routine 01/30/2019 Encounter 01/30/2019 Encounter The TEST-IFH TEST-IFH 6:30 PM EST for 11:30:00 PM for [place] RECOMMENDED RECOMMENDED screening EST screen ing For Family for HIV for HIV Health Encounter for screening for HIV HEP B SURFACE HEP B SURFACE Routine 01/30/2019 Healthcare 2018 Healthcare The AB AB 6:30 PM EST maintenance 11:30:00 PM [facility] ([facility] ([facility] EST For Family QN OPTION) QN OPTION) He alth Healthcare maintenance HEPATITIS C HEPATITIS C Routine 01/30/2019 Encounter 01/30/2019 Encounter The ANTIBODY W/ ANTIBODY W/ 6:30 PM EST for 11:30:00 PM for [place] REFLEX RT REFLEX RT screening EST screening For Family PCR PCR for HIV for HIV Health (REQUIRES 2 (REQUIRES 2 VIALS) VIALS) Encounter for screening for HIV HEP B HEP B Routine 01/30/2019 Healthcare 01/30/2019 Healthc are The CORE CORE 6:30 PM EST maintenance 11:30:00 PM [facility] [place] [facility] [place] AB, IGG AB, IGG EST [facility] Results ID Date Data Source [id number] 12/27/2019 11:50:23 AM EDT The [facility] Reason for Visit and Comments: Dental Appliance [1450] - "Partial ".Vitals (Last Filed):BP 135/73 Pulse 71 Temp 97.1 F (36.2 C) Vitals History RecordedIsabel Layne DDS 12/27/2019 11:50 AM SignedI have identified this p atient to be Thanh Kaminski, -1965.Chief ComplaintPatient presents [...] mouth daily clotrimazole 1 % Apply externally track patrol al solution Apply interdigitally bid as directed [...] warner on the street and in a alf. Has daughter down [place]. She is duein October first grand child.Social History Topics Tobacco Use: [...] * 02/01/2009 Influenza, Injectable,(cciiv4), Qu* 11/26/2019 PREVNAR (ZRY14-Ospooj Pneumococcal* 02/10/2015 Tdap 02/10/2015 Name Value Range Interpretation Code Description Data Dannielle rce(s) Supporting Document(s ) ID Date Data Source [id number] 11/26/2019 12:39:14 PM EDT The [facility] Reason for Visit and Comments: Other [0] [...] Wt 157 lb (71.2 kg) BMI 27.81 kg/g4MsfkhjsSue Pittman 11/26/2019 12:39 PM Signed I have identified [...] lb (71.2 kg) | BMI 27.81 k g/Bev Luke MD (R) 11/26/2019 11:04 AM AddendumS: I have confirmed patient to be Thanh Gordy with 1965 53 yo F h/oPTSD, depression [...] is very happyThe 10-year ASCVD risk score (Jim CAVANAUGH Jr., e t al., 2013) is: 12.6% Values used to calculate the score: Age: 54 years Sex: Female Is Non- : Yes Diabetic: Yes Tobacc o smoker: Yes Systolic Blood Pressure: 117 mmHg Is BP treated: No HDL Cholest lorena: 54 mg/dL Total Cholesterol: 292 mg/dLA/P:53 yo F h/oPTSD, depression (follows with ), [facility], doing very well today. Happy to be completingprogram and working on getting housing.Elevated ASCVD 12.6on statinHCM/ScreeningsFlu shotMammogram referralNeeds pap smear, h as apptUTD on CRC screeningUTD on lipids and EaA8UCFK on immunizationsTUDReducing use Offered NRT but will continue to work on cessation withoutMHFollowing with MH her e and mood greatFuture AppointmentsDate Time Provider Department [place]11/26/2019 12:0 0 PM [facility]AL[facility]12/09/2019 2:00 PM Billie Lynn [place] [address] 2:00 PM Billie Lynn [place] [address] 8:3 0 AM Bev Jones MD (R) [place] [address] 12:00 PM Kate Br[facility] MD [facility] [id number] 9:00 AM Isabel [facility]ne DDS [facility] Cueto zahira PGY-2[place] [facility]Magali LPN 11:03 AM SignedIndex Burundian RelatedtopicsFlu Vaccine K EY POINTS The flu [...] itself will not give you the flu. 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 The information is intended to inform andedu marcelo and is not a replacement for medical evaluation, advice, diagnosis ortreatmen t by a healthcare professional.ReferencesAdult Advisor 201 9.2 Index 2019 [employer] and/or one of its subsidiariesMagali Duffy LPN [...] plan: See PCP PRNSignature: FRIDA Rehman Peitle: MARGOTfter obtaining consent, and per orders of Dr. Emil merino, injection ofInfluenza vaccine given by Magali Huang LPN. Patient ins tructed toremain in clinic for 20 minutes afterwards, and to report any adverse re actionto me immediately.Patient Tolerated well the procedure. No adverse reaction noted or reported.Patient left the clinic alert and oriented X 3.LARA Baueruture AppointmentsDate Time Provider Department [place]11/26/2019 12:0 0 PM Lexi Brannon MD [facility]12/09/2019 2:00 PM Billie Lynn [place] [address] 2:00 PM Billie Lynn [place] [address] 8:3 0 AM Bev Jones MD (R) [place] [address] 12:00 PM Kate Brannon MD [place] [address] 9:00 AM Isabel Layne DDS FPCHDENT HARLEMKirkpat Clotilde mooney DO 11/26/2019 12:39 PM SignedOutpatient Primary Care ExceptionI discussed the care of Thanh Kaminski with the resident providing the service,during or immediately after the patient s visit, and was directly responsiblefor the patient s management. I can assure that the services provided areappropriate. I was physicall y available to the patient if clinically indicatedor requested by patient or john dent. My discussion with the resident includedthe [...] discussed were:#h/o substance use disorder - completed [employer] program, forms com pleted forhousing#chronic right knee pain - stable, motrin prn#tobacco use disorder - decreased 5 to 2-3, declines NRT#prediabetic/hyperlipidemia - continu e to watch, continue statin#mood disorder - follows with mental health#HCM - mammogr am referral provided, scheduled for PAP [id number] Maintenance Due:Make an jessica ointment to complete [...] Center12/03/2019 3:0 0 PM Lexi Brannon MD [facility]12/09/2019 2:00 PM Billie Lynn [place] [address] 2:00 PM Billie Lynn [place] [address] 8:3 0 AM Bev Jones MD (R) [place] [address] 12:00 PM Kate Brannon MD [place] [address] 9:00 AM Isabel Layne DDS [facility] Alex [place] Mara, MD (R) 11/26/2019 11:20 AM WrittenWas [...] mouth daily prazosin 1 MG Oral capsuleA [facility]joint [facility] As of Date: 11/26/2019 Noted Allergy ReactionASPIRIN 02/10/2015 1 - RashASPIRIN DL-LYSINE 02/20/2015 1 - RashDate Reviewed: 11/26/2019Reviewed by: Magali Huang LPN - [facility] of Service:[id number] OFFIC/OUTPT VISIT E&M EST LOW-MOD SEVER* Historical [...] Spouse: Years of Education: # children:Social History Angelicaat eyal Living on the street and in a alf. Has daughter down [place]. She is duein [...] 02/01/2009 Influenza, Injectable,(cciiv4), Qu* 0 11/26/2019 PREVNAR (YZE54-Kdmnsd Pneumococcal* 02/10/2015 Tdap 02/10/2015 Name Value Range Interpretation Code Description Data Dannielle rce(s) Supporting Document(s ) ID Date Data Source [id number] 10/24/2019 10:33:07 AM EDT The [place] Reason for Visit and Comments: Dental Appliance [1450] - " Denture".Vitals (Last Filed):BP 112/74 Pulse 68 Temp 97.1 F (36.2 C)Vitals History RecordedIsabel Layne DDS 10/24/2019 10:33 AM SignedI have identif ied this patient to be Thanh Kaminski, -1965.Chief ComplaintPatient presen ts with Dental Appliance [...] End Ammonium Lactate 1 2 % Apply track patrol* 400 g 2 10/11/2019 Class: E Prescribing Sig: Mix with va seline and apply bid Aripiprazole 5 MG Oral [...] pidemia)Collapsed lungDiabetes (HCC)Pre-diabetesDepressionPTSD (post-tr aumatic stress disorde*Bunion 2014CHEMICAL PLEURODESIS FOR PER SISTENT*HX TIBIA FRACTURE SURGERYFamily HistoryAdopted: Yes Problem Relation Age of Onset Alcohol/Drug Father Comments: cirrhosis Alcohol/Drug Mother Comments: of aidsFamily Status - Relation Status Age at Father Inocente rSocial History Marital Status: Unknown Spouse: Years of Education: # children:Social History Narrative Living on the street and in a alf. H as daughter down south. She is duein October first grand child.Social History Topics Tobac co Use: Yes Cigarettes (Packs/Day): 0 Years: 31 Start Date: Comment: pat ient newly diagnosed hiv disease doesn t want to quit. Alcohol Use: Yes 0 oz/w [place] 0 Standard drinks or equivalent per week [...] Influenza Virus, split Virus * 02/01/2009 PREVNAR (FQX91-Cixcrn Pneumococcal* 02/10/2015 Tdap 02/10/2015 Name Value Range Interpretation Code Description Data Dannielle rce(s) Supporting Document(s ) ID Date Data Source [id number] 10/11/2019 12:31:15 PM EDT The [place] [facility] Reason for Visit and Comments: Referr al [...] lb (71.7 kg) SpO2 98% BMI 25.5 kg/o3AchjwkuKathya Donald MA 10/11/2019 12:31 PM SignedI have identified this patient to be Thanhcherie Kaminski, - [birth year].Chief ComplaintPatient presents with Referral Clip [...] SignedI have identified this pt. to be Thanhcherie Kaminski, a 54 year old female with [...] externally Lotion Mix with vaseline and apply pnh191 g 2 Arip iprazole 5 MG Oral [...] hemostasis necessary.Patient will follow up: 11-12WAndrey Esteban Diagnosis:L84 Corns and callosities Other Diagnoses:B35.1 Dermatophytosis of n ail L30.9 Eczema, unspecified type B35.3 Tinea pedis of both feet S99.929A Injury of nail bed of toe Commen t:both 2nd digitsPrescriptions as of 10/11/2019 Disp Refills Start End * Amm onium Lactate 12 % Apply track patrol* 400 g 2 10/11/2019 Class: E Prescribing [...] : Isabel Layne DDS - ReviewedLevel of Service:[id number] OFFIC/OUTPT VISIT E&M EST LOW-MOD SEVER* Historical [...] warner on the street and in a alf. Has daughter down [place]. She is duein October first grand child.Social History Topics Tobacco Use: [...] H1N1- Influenza Virus,split Virus * 02/01/2009 PREVNAR (NGH22-Xgmzbx Pneumococcal* 02/10/2015 Tdap 02/10/2015 Name Value Range Interpretation Code Description Data Dannielle rce(s) Supporting Document(s ) ID Date Data Source [id number] 09/12/2019 10:07:44 AM EDT The [place] [facility] Reason for Visit and Comments: Dental Appliance [1450] - "My denture "Vitals (Last Filed):BP 131/81 Pulse 81 Temp 97.1 F (36.2 C) Vitals History RecordedIsabel Layne DDS 09/12/2019 10:07 AM SignedI have identified this patient to be Thanh Kaminski DOB -1965.Chief ComplaintPatient presents with Dental A ppliance [...] Take ONE tablet (15 mg total) by [facility] daily * Mirtazapine (REMERON) 15 MG Oral [...] 1 - RashDate Reviewed: 09/11Reviewed by: Isabel Lanye DDS - Reviewed Historical Information Past Medical [...] warner on the street and in a alf. Has daughter down [place]. She is duein [place] first grand child.Social History Topics Tobacco Use: [...] H1N1- Influenza Virus,split Virus * 02/01/2009 PREVNAR (QUW92-Fnvcsi Pneumococcal* 02/10/2015 Tdap 02/10/2015 Name Value Range Interpretation Code Description Data Dannielle rce(s) Supporting Document(s ) ID Date Data Source [id number] 03/26/2019 05:53:11 PM EST The [facility] Reason for Visit and Comments: Follow -up for: [92] - Patient stated appt f/u from last visitVitals (Last Filed):BP 114/63 (Orth ostatic Site : Arm - Left, Orthostatic Pos- ition : Sitting, Orthostatic Cuff Size : Adult) Pulse 8- 8 Temp 98.1 F (36.7 C) (Oral) Resp 16 Ht 5 6" (1- .676 m) Wt 170 lb (77.1 kg) SpO2 97% BMI 27.44 kg/a0NyfoxEllen Santos 03/26/2019 5:53 PM SignedI have identified [...] kg) | SpO2 97% | BMI 27.44kg/mPain 0 todayPharmacy verified and Allergis Veri Bev Reddy (R) 03/26/2019 5:48 PM Uogrgn74 yo F h/o DM, PTSD, polySUD at [facility], SI, [place] (follows with here),right tibial fx, feels well today, no complaints.#HCMFIT test normal Due for mammoMammogram at [place] [facility]-0#Positive Quantiferon GoldCompleted tx with INH in 90sAsxreports nl [facility]:EXAM:BP 114/63 (Orthostatic Site : Arm - Left, [...] yo F h/o DM, PTSD, polySUD at [facility] (foll ows with MH here),right tibial fx.1. Breast screening- US BREAST UNI REAL TIME WITH IMAGE LIMIT ED2. Pre-diabetesMetformin 500mg BID3. Elevated ASCVD riskStatin at next visit4. HLD-discusse d lifestyle modification although difficult iso of right leg pain andlack of control of food opti ons at [facility]. Uli Al MD 03/26/2019 5:53 PM [...] - crack cocaine/marijuana, no [facility]of [facility], history of suicidal [...] knee, knee pain improvedFIT test normal.Mammogram at [place] BIRADS- 0 discussed and ordered bilateral breastultrasounds - will refer to [facility]. Historical o rder for mammogram.Positive Quantiferon Gold [...] ed by: Latisha Velázquez - ReviewedLevel of Service:[id number] OFFIC/OUTPT VISIT E&M EST LOW-MOD SEVER * Historical Information Past Medical and Surgical HistoryMedical And Surgical History Item DateHerpes genitalia 05/10/2011HLD (hyperlipidemia)Co llapsed lungDiabetes (HCC)Bunion 2013CHEMICAL PLEURODESIS FOR PERSI STENT*HX TIBIA FRACTURE SURGERYFamily HistoryAdopted: Yes Problem Re lation Age of Onset Alcohol/Drug Father Comments: cirrhosis Alcohol/Drug Mother Comments: of aidsFamily Status - Re lation Status Age at Father MotherSocial History Marital St atus: Unknown Spouse: Years of Education: # children:Social Hist ory Narrative Living on the street and in a alf. Has daughter down south. She is duein [...] Infl uenza Virus,split Virus * 02/01/2009 PREVNAR (TGJ56-Sjachd Pneumococcal* 02/10/2015 Tdap 02/10/2015 Name Value Range Interpretation Code Description Data Dannielle rce(s) Supporting Document(s ) ID Date Data Source [id number] 03/06/2019 02:44:00 PM EST [facility] Name Value Range Interpretation Description Data Sup porting Code Source(s) Document(s ) OCCULT BLOOD NEGATIVE NEGATIVE The [facility] ID Date Data Source [id number] 01/30/2019 08:12:06 PM EST [facility] Reason for Visit and Comments: Follow -up [...] 12/11/2018 (- Approximate) SpO2 100% BMI 28.12 kg/q4Fhsrlg History RecordedLe Latisha soto 01/30/2019 8:12 PM SignedI have identified this patient to be Lyly Kaminski, -1965.Chief ComplaintPatient presents with Follow-up for: Knee pain - XrayVitals 01/30/19 1716BP: 107/71Pulse: 72Resp: 18Temp: 98 F (36.7 C)TempSrc: OralSpO2: 100%Weight: 174 lb 3.2 oz (79 kg)Height: 5 6" (1.676 m)PainSc: 4-Hurt s Whole LotPainLoc: KneePharmacy was verified.Patient is in stable condition after triage.Latisha VelázquezMedical Office AssistantBev Mike (R) 019 8:11 PM SignedSUBJECTIVE:53 yo F [...] is getting that fr om PCP in [place]-thinks she saw ophtho this year#UTI-dx with UTI at [facility] on 01/[facility], ta garrett keflex x 7 days#HCM-did mammogram and pap smear in [place]-abnormal pap and c olpo done?-mammo also abnormal, needs to get US-got a flu shot-got prevnar in 2014, u nclear why-says she is due for pneumovax in 2019-was given cologuard but did not do it-GC/chlamydia, RPR done this year and normal-Says she was tested for HCV and t ested negative#Spontaneous Pneumothorax x 4-pleurodesceis at [facility], most recently in 2007-no pulm f/u#Depression#PTSD-sees mental health here#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 I [...] physical exam findings: Substance use disorder at [facility]. DM. Gets most medical care in [place], considering switching over ram[place] e[place]. Hx knee [...] Needs statin.Substance use disorder: doing well at [facility], check Hep serologies today,H IVSmoker: cutting back. Needs flu, PSV23. LDCT at 56HCM: needs breast US. Had abno rmal pap + colpo this year. Will request records.Offer FITFuture AppointmentsDate Time Provider Department Somuho5702/02/2019 11:20 AM Lexi [facility] MD [facility] [place] [address]04/06/2018 2:00 PM Billie Lynn [facility] Gokul Sung Sharon 01/30/2019 8:12 PM SignedI have identified this patient to be Thanh harris, -1965.Thanh Kaminski at [facility] today to have blood drawn. 2 sst [...] 01/30/2019Reviewed by: Latisha Velázquez - ReviewedLevel of Service:[id number] OFFIC/OUTPT VISIT E&M EST LOW-MOD SEVER* Historical [...] Living on the [address] and in a alf. Has daughter down [place]. She is duein [...] 1- Influenza Virus,split Virus * 02/01/2009 PREVNAR (EKE31-Bjkhvy Pneumococcal* 1 04/12/2014 Tdap 02/10/2015 Name Value Range Interpretation Code Description Data Dannielle rce(s) Supporting Document(s ) ID Date Data Source [id number] 02/01/2019 12:11:00 PM EST The [facility] Name Value Range Interpretation Description Data Sup porting Code Source(s) Document(s ) OCCULT BLOOD TNP NEGATIVE The [facility] Comment: TEST NOT PERFORMED; FOBT SAMPL E BOTTLE NOT RECEIVED. ID Date Data Source [id number] 01/31/2019 09:31:00 AM EST The [facility] Name Value Range Interpretation Description Data Sup porting Code Source(s) Document(s ) HIV 1/2 Non-React Non-React The [place] AB, EIA eyal eyal [facility] Assay Information: Assay for the detecti on of HIV p24 antigen and antibodies to Human Immunodeficiency Virus Type 1,including Group O (HIV-1 + "O") and/or T ype 2 (HIV-2) Method: Chemiluminescence ([employer] MD [facility]) ID Date Data Source [id number] 01/31/2019 09:31:00 AM EST [facility] Name Value Range Interpretation Code Description Data Supporting Source(s) Document(s ) HBCAB Non-Reacti Non-Reacti The [place] ve [facility] Hepatitis B Result Inte rpretation (for reference [...] in some patients. ID Date Data Source [id number] 01/31/2019 09:30:00 AM EST [facility] Name Value Range Interpretation Description Data Sup porting Code Source(s) Document(s ) HEP C AB. 0.02 NA <0.80 The S/CO RATIO [facility] HEPATITIS C Non-React Non-Reac The ANTIBODY [facility] ID Date Data Source [id number] 01/31/2019 09:10:00 AM EST [facility] Name Value Range Interpretation Description Data Sup porting Code Source(s) Document(s ) HEPATITIS B Non-React Non-Reac The SURFACE [facility] ANTIGEN [facility] Hepatitis B Result Inte rpretation (for reference [...] in some patients. ID Date Data Source [id number] 01/31/2019 08:54:00 AM EST [facility] Name Value Range Interpretation Code Description Data [...] in some patients. ID Date Data Source [id number] 01/31/2019 07:48:00 AM EST [facility] Name Value Range Interpretation Description Data Sup porting Code Source(s) Document(s ) HEMOGLOBIN A1C 5.9 % <5.7 Above high normal The [facility] HEMOGLOBIN A1c AND eAG REFERENCE RANGES A1c(%) DIABETES CATEGORY* <5.7 Normal (non-diabetic) 5.7-6.[address] of diabetes =>6.5 Consistent with diabetes A1c(%) eAG(ESTIMATED AVERAGE PLASMA GLUCOSE)(mg/dL) 6 126 7 154 8 183 9 212 10 240 11 269 12 298 *recom mended ranges-[place] [employer](2010) NOTE: The amount of gl ycated hemoglobin as measured by the HbA1c test may be overestimated in [place] and should not be used as the sole parameter of glycemic burden. Similarly, hemolysis, genetic hemoglobin variants and chemically modified hemoglo bin derivatives (as seen in renal failure, smoking, aspirin use) may also affect glycated hemoglobin levels. ID Date Data Source [id number] 01/31/2019 07:25:00 AM EST The [facility] Name Value Range Interpretation Description Data Sup porting Code Source(s) Document(s ) CHOLESTEROL 292 <200 Above high normal The mg/dL [facility] HDL CHOLESTEROL 54 mg/dL >50 The [facility] TRIGLYCERIDES 291 <150 Above high normal The mg/dL [facility] HDL % OF 18 % >14 The CHOLESTEROL [facility] Evaluation: AVERAGE RISK CHOL/HDL RATIO 5.4 NA <5.8 The [place] [facility] or [facility] Evaluation: AVERAGE RISK HDL/LDL RATIO 3.33 NA <3.56 The [place] Fo r [facility] LDL CHOLESTEROL 180 mg/dL <100 Above high normal [facility] CHOLESTEROL ALEJANDRO 58 mg/dL 7-32 Above high normal T he [facility] NON HDL CHOL. (LDL+VLDL) 238 mg/dL <130 Above high normal The [facility] ID Date Data Source [id number] 01/31/2019 07:25:00 AM EST The [facility] Name Value Range Interpretation Description Data Sup porting Code Source(s) Document(s ) PROTEIN, 7.1 g/dL 5.9-8.4 The TOTAL, SERUM [facility] ALBUMIN 4.2 g/dL 3.5-5.2 The [facility] GLOBULIN, 2.9 g/dL 1.7-3.7 The TOTAL [facility] A/G RATIO 1.4 1.1-2.9 The Ratio [facility] SODIUM 141 135-147 The mmol/L [facility] POTASSIUM 4.6 3.5-5.5 The mmol/L [facility] CHLORIDE 101 96-108 The mmol/L [facility] CARBON DIOXIDE 25 22-29 The mmol/L [facility] UREA NITROGEN 14 mg/dL 6-20 The (BUN) [facility] CREATININE 0.96 0.49-1.0 The mg/dL 2 [facility] EGFR 68 >or=60 The mL/min [facility] EGFR 79 >or=60 The TOGOLESE mL/min [facility] BUN/CREATININE 14.6 10.0-28. The RATIO Ratio 0 [facility] CALCIUM 9.7 8.6-10.4 The mg/dL [facility] BILIRUBIN, <0.2 <1.2 The TOTAL mg/dL [facility] ALKALINE 68 U/L 40-156 The PHOSPHATASE [facility] AST (SGOT) 21 U/L <32 The [facility] ALT (SGPT) 12 U/L <33 The [facility] GLUCOSE 106 70-99 Above high normal The mg/dL [facility] ID Date Data Source [id number] 02/01/2019 12:11:00 PM EST The [facility] Name Value Range Interpretation Description Data Sup porting Code Source(s) Document(s ) QUANTIFER POSITIVE NEGATIVE Abnormal (applies The Institut e ON-TB to non-numeric For [facility] results) Health SITE: CYTOLOGY NIL 0.12 IU/mL The [facility] SITE: CYTOLOGY TB1 ANTIGEN-NIL VALUE 1.89 IU/ml The Ins titute [facility] SITE: CYTOLOGY TB2 ANTIGEN-NIL VALUE 1.02 IU/ml The [facility] SITE: CYTOLOGY MITOGEN NIL >10.00 IU/ml The [facility] or [facility] SITE: CYTOLOGYComment: NOTE: DIAGNOSIN G OR [...] BY LYMPHOCYTE S. ID Date Data Source [id number] 01/17/2019 12:51:18 PM EST The [place] For [facility] Reason for Visit and Comments: Knee P ain [194] - right knee painVitals (Last Filed):BP 104/70 (Orthostatic Site : Arm - Right, Orthostatic Po- sition : Sitting, Orthostatic Cuff Size : Adult) Pulse - 75 Temp 98 F (36.7 C) (Oral) Resp 18 Ht 5 6" (1.- 676 m) Wt 173 lb (78.5 kg) SpO2 100% BMI 27.92 k g/k8EsewahhHilary Donald 01/17/2019 12:51 PM SignedI have identified [...] side since accident-[facility] month normal, but has not had any newimaging with new pain-Wan ts new ortho doc as well#[facility] residential tx pr ogram-Not [...] PM SignedFaculty Supervision of resident with kiara macedoI was in the room for confirmation of [...] Living on [address] and in a alf. [place]. She [place] duein [...] for money to get drugs.Immunizations Administered PREVNAR ([id number] Pneumococcal* 02/10/2015 Tdap 02/10/2015 Name Value Range Interpretation Code Description Data Dannielle rce(s) Supporting Document(s ) Procedure Social History Code Duration Value Status Description Data Source(s ) Alcohol intake 12/27/2019 Current completed Current drinker The I nstitute 12:00:00 AM drinker of of alcohol For Family EDT alcohol (finding) Health (finding) Tobacco use and 12/27/2019 Never used completed Never used The Insti tute exposure 12:00:00 AM For Family EDT Health Smoking 12/27/2019 Current every completed Current every day The [place] 12:00:00 AM day smoker smoker For Family EDT Health Alcohol intake 11/26/2019 Current completed Current drinker The I nstitute 12:00:00 AM drinker of of alcohol For Family EDT alcohol (finding) Health (finding) Alcohol intake 10/24/2019 Current completed Current drinker The I nstitute 12:00:00 AM drinker of of alcohol For Family EDT alcohol (finding) Health (finding) Alcohol intake 10/11/2019 Current completed Current drinker The I nstitute 12:00:00 AM drinker of of alcohol For Family EDT alcohol (finding) Health (finding) Alcohol intake 09/12/2019 Current [facility] [place] 12:00:00 AM drinker of For Family EDT alcohol Health (finding) Alcohol intake 03/26/2019 Current The [facility] [place] 12:00:00 AM drinker of For Family EST alcohol Health (finding) Cigarettes 03/26/2019 UNK The [place] smoked current 12:00:00 AM For Famil y (pack per day) - EST Health Reported Cigarette 03/26/2019 K The [place] pack-years 12:00:00 AM For Family EST Health Tobacco use and 03/26/2019 Never used The Insti tute exposure 12:00:00 AM For Family EST Health Tobacco smoking 03/26/2019 Current every The In stitute status NHIS 12:00:00 AM day smoker For Family EST Health Cigarette 03/26/2019 K The [place] pack-years 12:00:00 AM For Family EST Health Cigarettes 03/26/2019 K The [place] smoked current 12:00:00 AM For Famil y (pack per day) - EST Health Reported Cigarettes 02/02/2019 K The [place] smoked current 12:00:00 AM For Famil y (pack per day) - EST Health Reported Tobacco smoking 02/02/2019 Current every The [place] status NHIS 12:00:00 AM day smoker For Family EST Health Cigarette 02/02/2019 UNK The [place] pack-years 12:00:00 AM For Family EST Health Alcohol intake 02/02/2019 Current The [facility] [place] 12:00:00 AM drinker of For Family EST alcohol Health (finding) Tobacco smoking 01/30/2019 Current every The In stitute status NHIS 12:00:00 AM day smoker For Family EST Health Alcohol intake 01/30/2019 Current The [facility] [place] 12:00:00 AM drinker of For Family EST alcohol Health (finding) Cigarettes 01/30/2019 K The [place] smoked current 12:00:00 AM For Famil y (pack per day) - EST Health Reported Cigarette 01/30/2019 UNK The [place] pack-years 12:00:00 AM For Family EST Health Alcohol intake 01/06/2019 Current The [facility] [place] 12:00:00 AM drinker of For Family EDT alcohol Health (finding) Tobacco smoking 01/06/2019 Current every The In stitute status NHIS 12:00:00 AM day smoker For Family EDT Health Cigarette 01/06/2019 UNK The [place] pack-years 12:00:00 AM For Family EDT Health Cigarettes 01/06/2019 UNK The [place] smoked current 12:00:00 AM For Famil y (pack per day) - EDT Health Reported Vital Signs ID Date Data Source UNK Name Value Range Interpretation Code Description Data Source(s) Body temperature 36.17 Leatha 36.17 Leatha The [facility] Heart rate 71 /min 71 /min The [place] [facility] Diastolic blood 73 mm[Hg] 73 mm[Hg] The Insti tute pressure For Family Health Systolic blood 135 mm[Hg] 135 mm[Hg] The [facility] [place] pressure For Family Health Body mass index 27.81 kg/m2 27.81 kg/m2 The Ins [facility] (BMI) [Ratio] For Family Health Body weight 71.215 kg 71.215 kg The [place] [facility] Body height 160 cm 160 cm The [place] [facility] Respiratory rate 18 /min 18 /min The [facility] Body temperature 36.89 Leatha 36.89 Leatha The [facility] Heart rate 79 /min 79 /min The [place] [facility] Diastolic blood 70 mm[Hg] 70 mm[Hg] The Insti tute pressure For Family Health Systolic blood 117 mm[Hg] 117 mm[Hg] The [facility] [place] pressure For Family Health Body temperature 36.17 Leatha 36.17 Leatha The [facility] Heart rate 68 /min 68 /min The [place] [facility] Diastolic blood 74 mm[Hg] 74 mm[Hg] The Insti tute pressure For Family Health Systolic blood 112 mm[Hg] 112 mm[Hg] The [facility] [place] pressure For Family Health Oxygen saturation 98 % 98 % The Ins [facility] in Arterial blood For Fam eros by Pulse oximetry Health Body mass index 25.50 kg/m2 25.50 kg/m2 The Ins [facility] (BMI) [Ratio] For Family Health Body weight 71.668 kg 71.668 kg The [facility] Body height 167.6 cm 167.6 cm The [facility] Respiratory rate 17 /min 17 /min The [facility] Body temperature 37 Leatha 37 Leatha The [facility] Heart rate 78 /min 78 /min The [facility] Diastolic blood 78 mm[Hg] 78 mm[Hg] The Insti tute pressure For Family Health Systolic blood 120 mm[Hg] 120 mm[Hg] The [facility] [place] pressure For Family Health Body temperature 36.17 Leatha 36.17 Leatha The [facility] Heart rate 81 /min 81 /min The [place] [facility] Diastolic blood 81 mm[Hg] 81 mm[Hg] The Insti tute pressure For Family Health Systolic blood 131 mm[Hg] 131 mm[Hg] The [facility] [place] pressure For Family Health Oxygen saturation 97 % 97 % The Ins [facility] in Arterial blood For Fam eros by Pulse oximetry [facility] Body weight 77.111 kg 77.111 kg The [facility] Body height 167.6 cm 167.6 cm The [facility] Respiratory rate 16 /min 16 /min The Inst [facility] For [facility] Body temperature 36.72 Leatha 36.72 Leatha The [facility] Heart rate 88 /min 88 /min The [facility] Diastolic blood 63 mm[Hg] 63 mm[Hg] The Insti tute pressure For Family Health Systolic blood 114 mm[Hg] 114 mm[Hg] The [facility] [place] pressure For Family Health Oxygen saturation 100 % 100 % The Ins [facility] in Arterial blood For Fam eros by Pulse oximetry [facility] Body weight 79.017 kg 79.017 kg The [facility] Body height 167.6 cm 167.6 cm The [facility] Respiratory rate 18 /min 18 /min The [facility] Body temperature 36.67 Leatha 36.67 Leatha The Inst [facility] For [facility] Heart rate 72 /min 72 /min The [facility] Diastolic blood 71 mm[Hg] 71 mm[Hg] The Insti tute pressure For Family Health Systolic blood 107 mm[Hg] 107 mm[Hg] The [facility] [place] pressure For Family Health Oxygen saturation 100 % 100 % The Ins [facility] in Arterial blood For Fam eros by Pulse oximetry [facility] Body weight 78.472 kg 78.472 kg The [facility] Body height 167.6 cm 167.6 cm The [place] For [facility] Respiratory rate 18 /min 18 /min The [facility] itute For [facility] Body temperature 36.67 Leatha 36.67 Leatha The Inst itute [facility] Heart rate 75 /min 75 /min The [place] [facility] Diastolic blood 70 mm[Hg] 70 mm[Hg] The Insti tute pressure For [facility] Systolic blood 104 mm[Hg] 104 mm[Hg] The [facility] [place] pressure For [facility] Patient Treatment Plan of Care Planned Activity Planned Date Details Description Data Source (s) Mirtazapine 15 MG Oral 12/11/2019 12:00:00 The [place] For Tablet [facility] aripiprazole 5 MG Oral 12/11/2019 12:00:00 The [place] For Tablet AM Critical access hospital aripiprazole 5 MG Oral 10/29/2019 12:00:00 The [place] For Tablet AM Critical access hospital Mirtazapine 15 MG Oral 10/29/2019 12:00:00 The [place] For Tablet AM Critical access hospital ammonium lactate 120 10/11/2019 12:00:00 The [place] For MG/ML Topical Lotion AM Critical access hospital Clotrimazole 10 MG/ML 10/11/2019 12:00:00 The [place] For Topical Solution [facility] Family [facility] th Mirtazapine 15 MG Oral 05/07/2019 12:00:00 The [place] For Tablet AM [facility] 24 HR Bupropion 05/07/2019 12:00:00 The I nstitute For Hydrochloride 150 MG AM EST [facility] Extended Release Oral Tablet aripiprazole 5 MG Oral 05/07/2019 12:00:00 The [place] For Tablet AM EST [facility] Prazosin 1 MG Oral 12/13/2018 12:00:00 Th e [place] For Capsule AM Critical access hospital Mirtazapine 15 MG Oral 05/31/2018 12:00:00 The [place] For Tablet AM [facility] Family [facility] 24 HR Bupropion 02/10/2015 12:00:00 The I nstitute For Hydrochloride 300 MG AM EST [facility] Extended Release Oral Tablet
[2019-12-28] MEDS: hydrOXYzine PAMOATE 25 MG CAPSULE (FP) PO SCH ×3 (15:54→22:09)
[2019-12-28 17:05] LABS: POTASSIUM 4.5 mmol/L (3.5-5.1)
[2019-12-28 17:08] LABS: HEMATOCRIT 43.9 % (32.4-45.2); HEMOGLOBIN 14.9 GM/dL (10.7-15.3); MCH 27.8 pg (25.7-33.7); MEAN CELL VOLUME 81.8 fl (80-96); MEAN PLT VOLUME 8.7 fl (7.5-11.1); PLATELET COUNT 377 K/MM3 (134-434); RBC 5.37 M/mm3 (3.60-5.2); RDW 14.6 % (11.6-15.6)
[2019-12-28 17:09] LABS: BLOOD UREA NITROGEN 19.8 mg/dL (7-18)
[2019-12-28 17:10] LABS: ALBUMIN 3.6 g/dl (3.4-5.0); CALCIUM 10.3 mg/dL (8.5-10.1)
[2019-12-28 17:12] LABS: CREATININE 0.8 mg/dL (0.55-1.3)
[2019-12-28 17:14] LABS: BILIRUBIN,TOTAL 0.8 mg/dL (0.2-1); TOT PROT 8.1 g/dl (6.4-8.2)
[2019-12-28] MEDS: chlordiazePOXIDE HCL 25 MG CAPSULE PO SCH ×2 (17:30→22:09)
[2019-12-28] MEDS: THIAMINE HCL 100 MG TABLET (FP) PO SCH (22:09)
[2019-12-28] MEDS: MELATONIN 5 MG TABLETS PO SCH (22:09)
[2019-12-29] MEDS: chlordiazePOXIDE HCL 25 MG CAPSULE PO SCH ×4 (05:43→22:04)
[2019-12-29] MEDS: hydrOXYzine PAMOATE 25 MG CAPSULE (FP) PO SCH ×5 (05:43→22:03)
[2019-12-29] MEDS: PRENATAL VITAMINS W/ FOLIC ACID TABLET (FP) PO SCH (10:40)
[2019-12-29] MEDS: NICOTINE 7 MG/24 HOURS TOPICAL PATCH TD SCH (11:47)
--- NOTE | 2019-12-29 12:49 | PN ---
S CIWA - CIWA Score Nausea/Vomitin-No Nausea/No Vomiting Muscle Tremors: 2 Anxiety: 3 Agitation: 0-Normal Activity Paroxysmal Sweats: 3 Orientation: 0-Oriented Tacttile Disturbances: 0-None Auditory Disturbances: 0-None Visual Disturbances: 0-None Headache: 2-Mild CIWA-Ar Total Score: 10 B[facility] Progress Note (SOAP) Subjective: c/o anxiety, sweats, headache, and shakes. Objective: 12/29/19 12:49 Vital Signs 12/29/19 12/29/19 06:35 09:00 Temperature 98.2 F 96.8 F L Pulse Rate 78 82 Respiratory 16 20 Rate Blood Pressure 112/67 99/60 O2 Sat by Pulse 98 99 Oximetry (%) Laboratory Last Values WBC 6.0 K/mm3 (4.0-10.0) 12/28/19 14:00 RBC 5.37 M/mm3 (3.60-5.2) H 12/28/19 14:00 Hgb 14.9 GM/dL (10.7-15.3) 12/28/19 14:00 Hct 43.9 % (32.4-45.2) D 12/28/19 14:00 MCV 81.8 fl (80-96) 12/28/19 14:00 MCH 27.8 pg (25.7-33.7) 12/28/19 14:00 MCHC 34.0 g/dl (32.0-36.0) 12/28/19 14:00 RDW 14.6 % (11.6-15.6) 12/28/19 14:00 Plt Count 377 K/MM3 (134-434) 12/28/19 14:00 MPV 8.7 fl (7.5-11.1) 12/28/19 14:00 Sodium 138 mmol/L (136-145) 12/28/19 14:00 Potassium 4.5 mmol/L (3.5-5.1) 12/28/19 14:00 Chloride 102 mmol/L (98-107) 12/28/19 14:00 Carbon Dioxide 29 mmol/L (21-32) 12/28/19 14:00 Anion Gap 7 MMOL/L (8-16) L 12/28/19 14:00 BUN 19.8 mg/dL (7-18) H 12/28/19 14:00 Creatinine 0.8 mg/dL (0.55-1.3) 12/28/19 14:00 Est GFR (CKD-EPI)AfAm 97.55 12/28/19 14:00 Est GFR (CKD-EPI)NonAf 84.17 12/28/19 14:00 POC Glucometer 139 UNITS (80-120) 12/29/19 11:09 Random Glucose 121 mg/dL (74-106) H 12/28/19 14:00 Calcium 10.3 mg/dL (8.5-10.1) H 12/28/19 14:00 Total Bilirubin 0.8 mg/dL (0.2-1) 12/28/19 14:00 AST 20 U/L (15-37) 12/28/19 14:00 ALT 26 U/L (13-61) 12/28/19 14:00 Alkaline Phosphatase 84 U/L (45-117) 12/28/19 14:00 Total Protein 8.1 g/dl (6.4-8.2) 12/28/19 14:00 Albumin 3.6 g/dl (3.4-5.0) 12/28/19 14:00 Syphilis Serology Reactive (NONREACTIVE) A* 12/28/19 14:00 COVID-19 (MRAI) Not detected (Not Detected) 12/28/19 14:00 Labs noted. Assessment: 12/29/19 12:49 AOX3, in no acute respiratory distress. Full ROM, ambulating in the unit. Withdrawal symptoms. Plan: continue detox.
[2019-12-29] MEDS: MELATONIN 5 MG TABLETS PO SCH (22:03)
[2019-12-29] MEDS: THIAMINE HCL 100 MG TABLET (FP) PO SCH (22:04)
[2019-12-30] MEDS: hydrOXYzine PAMOATE 25 MG CAPSULE (FP) PO SCH ×5 (05:59→22:10)
[2019-12-30] MEDS: chlordiazePOXIDE HCL 25 MG CAPSULE PO SCH ×4 (05:59→22:10)
[2019-12-30] MEDS: PRENATAL VITAMINS W/ FOLIC ACID TABLET (FP) PO SCH (10:07)
[2019-12-30] MEDS: NICOTINE 7 MG/24 HOURS TOPICAL PATCH TD SCH (10:07)
--- NOTE | 2019-12-30 12:57 | PN ---
S CIWA - CIWA Score Nausea/Vomitin-Mild Nausea/No Vomiting Muscle Tremors: 2 Anxiety: 2 Agitation: 1-Slight > Activity Paroxysmal Sweats: 2 Orientation: 0-Oriented Tacttile Disturbances: 0-None Auditory Disturbances: 0-None Visual Disturbances: 1-Very Mild Sensitivity Headache: 0-None Present CIWA-Ar Total Score: 9 BHS Progress Note (SOAP) Subjective: 54 years old male was admitted on 12/28/19 for alcohol withdrawal sx management treating with librium detox regiment doing well with librium regiment feels tired due to trouble sleep last night speech clearly encourage hand washing and general hygiene Objective: 12/30/19 12:54 Vital Signs - 24 hr 12/29/19 12/29/19 12/30/19 16:46 20:22 06:21 Temperature 97.8 F 96.9 F L 97.3 F L Pulse Rate 83 83 71 Respiratory 18 18 16 Rate Blood Pressure 100/61 101/62 102/58 L O2 Sat by Pulse 98 100 Oximetry (%) 12/30/19 08:46 Temperature 96.9 F L Pulse Rate 96 H Respiratory 16 Rate Blood Pressure 101/67 O2 Sat by Pulse 100 Oximetry (%) Laboratory Tests 12/28/19 12/28/19 12/28/19 13:56 14:00 14:00 WBC 6.0 RBC 5.37 H Hgb 14.9 Hct 43.9 D MCV 81.8 MCH 27.8 MCHC 34.0 RDW 14.6 Plt Count 377 MPV 8.7 Sodium 138 Potassium 4.5 Chloride 102 Carbon Dioxide 29 Anion Gap 7 L BUN 19.8 H Creatinine 0.8 Est GFR (CKD-EPI)AfAm 97.55 Est GFR (CKD-EPI)NonAf 84.17 POC Glucometer 158 Random Glucose 121 H Calcium 10.3 H Total Bilirubin 0.8 AST 20 ALT 26 Alkaline Phosphatase 84 Total Protein 8.1 Albumin 3.6 Syphilis Serology RPR Titer COVID-19 (MARI) 12/28/19 12/28/19 12/28/19 14:00 14:00 14:00 WBC RBC Hgb Hct MCV MCH MCHC RDW Plt Count MPV Sodium Potassium Chloride Carbon Dioxide Anion Gap BUN Creatinine Est GFR (CKD-EPI)AfAm Est GFR (CKD-EPI)NonAf POC Glucometer Random Glucose Calcium Total Bilirubin AST ALT Alkaline Phosphatase Total Protein Albumin Syphilis Serology Reactive A* RPR Titer Reactive 1:1 H COVID-19 (MARI) Not detected 12/28/19 12/29/19 12/29/19 16:49 05:43 11:09 WBC RBC Hgb Hct MCV MCH MCHC RDW Plt Count MPV Sodium Potassium Chloride Carbon Dioxide Anion Gap BUN Creatinine Est GFR (CKD-EPI)AfAm Est GFR (CKD-EPI)NonAf POC Glucometer 187 134 139 Random Glucose Calcium Total Bilirubin AST ALT Alkaline Phosphatase Total Protein Albumin Syphilis Serology RPR Titer COVID-19 (MARI) 12/29/19 16:36 WBC RBC Hgb Hct MCV MCH MCHC RDW Plt Count MPV Sodium Potassium Chloride Carbon Dioxide Anion Gap BUN Creatinine Est GFR (CKD-EPI)AfAm Est GFR (CKD-EPI)NonAf POC Glucometer 153 Random Glucose Calcium Total Bilirubin AST ALT Alkaline Phosphatase Total Protein Albumin Syphilis Serology RPR Titer COVID-19 (MARI) 12/30/19 12:56 long history of diabetes treated with metformin resume metformin bgm bidac 12/30/19 12:58 bgm bidac with insulin coverage Assessment: 12/30/19 12:59 alcohol withdrawal 12/30/19 12:59 non insulin dependent diabetes Plan: librium regiment
[2019-12-30] MEDS: metFORMIN HCL 500 MG TABLET (FP) PO SCH (17:19)
[2019-12-30] MEDS: INSULIN SLIDING SCALE (NOVOLOG) 1 VIAL SQ SCH (17:20)
[2019-12-30] MEDS: THIAMINE HCL 100 MG TABLET (FP) PO SCH (22:10)
[2019-12-30] MEDS: MELATONIN 5 MG TABLETS PO SCH (22:10)
[2019-12-31] MEDS ORDERED: chlordiazePOXIDE HCL 10 MG CAPSULE PO PRN
[2019-12-31] MEDS: hydrOXYzine PAMOATE 25 MG CAPSULE (FP) PO SCH ×5 (06:36→22:32)
[2019-12-31] MEDS: chlordiazePOXIDE HCL 10 MG CAPSULE PO SCH ×4 (06:36→22:32)
[2019-12-31] MEDS: metFORMIN HCL 500 MG TABLET (FP) PO SCH ×2 (06:39→18:05)
[2019-12-31] MEDS: INSULIN SLIDING SCALE (NOVOLOG) 1 VIAL SQ SCH ×2 (07:05→16:47)
[2019-12-31] MEDS: PRENATAL VITAMINS W/ FOLIC ACID TABLET (FP) PO SCH (10:09)
[2019-12-31] MEDS: NICOTINE 7 MG/24 HOURS TOPICAL PATCH TD SCH (10:10)
--- NOTE | 2019-12-31 13:16 | PN ---
S CIWA - CIWA Score Nausea/Vomitin-No Nausea/No Vomiting Muscle Tremors: 2 Anxiety: 2 Agitation: 0-Normal Activity Paroxysmal Sweats: 1-Minimal Palms Moist Orientation: 0-Oriented Tacttile Disturbances: 0-None Auditory Disturbances: 0-None Visual Disturbances: 1-Very Mild Sensitivity Headache: 1-Very Mild CIWA-Ar Total Score: 7 BHS Progress Note (SOAP) Subjective: 54 years old female was admitted on 12/28/19 for alcohol withdrawal sx management treating with librium detox regiment feels better today ate breakfast and lunch in room tolerated food well discussing aftercare with staff ms sheldon [facility] Objective: 12/31/19 13:21 Vital Signs - 24 hr 12/30/19 12/30/19 12/31/19 16:45 20:37 06:27 Temperature 97.1 F L 97.1 F L 97.2 F L Pulse Rate 72 83 65 Respiratory 16 16 16 Rate Blood Pressure 94/57 L 102/70 124/65 O2 Sat by Pulse 98 99 Oximetry (%) 12/31/19 12/31/19 09:04 12:29 Temperature 98.2 F 97.1 F L Pulse Rate 84 80 Respiratory 18 18 Rate Blood Pressure 93/62 101/66 O2 Sat by Pulse 100 Oximetry (%) Laboratory Tests 12/28/19 12/28/19 12/28/19 13:56 14:00 14:00 WBC 6.0 RBC 5.37 H Hgb 14.9 Hct 43.9 D MCV 81.8 MCH 27.8 MCHC 34.0 RDW 14.6 Plt Count 377 MPV 8.7 Sodium 138 Potassium 4.5 Chloride 102 Carbon Dioxide 29 Anion Gap 7 L BUN 19.8 H Creatinine 0.8 Est GFR (CKD-EPI)AfAm 97.55 Est GFR (CKD-EPI)NonAf 84.17 POC Glucometer 158 Random Glucose 121 H Calcium 10.3 H Total Bilirubin 0.8 AST 20 ALT 26 Alkaline Phosphatase 84 Total Protein 8.1 Albumin 3.6 Syphilis Serology RPR Titer COVID-19 (MARI) 12/28/19 12/28/19 12/28/19 14:00 14:00 14:00 WBC RBC Hgb Hct MCV MCH MCHC RDW Plt Count MPV Sodium Potassium Chloride Carbon Dioxide Anion Gap BUN Creatinine Est GFR (CKD-EPI)AfAm Est GFR (CKD-EPI)NonAf POC Glucometer Random Glucose Calcium Total Bilirubin AST ALT Alkaline Phosphatase Total Protein Albumin Syphilis Serology Reactive A* RPR Titer Reactive 1:1 H COVID-19 (MARI) Not detected 12/28/19 12/29/19 12/29/19 16:49 05:43 11:09 WBC RBC Hgb Hct MCV MCH MCHC RDW Plt Count MPV Sodium Potassium Chloride Carbon Dioxide Anion Gap BUN Creatinine Est GFR (CKD-EPI)AfAm Est GFR (CKD-EPI)NonAf POC Glucometer 187 134 139 Random Glucose Calcium Total Bilirubin AST ALT Alkaline Phosphatase Total Protein Albumin Syphilis Serology RPR Titer COVID-19 (MARI) 12/29/19 12/30/19 12/31/19 16:36 16:38 06:38 WBC RBC Hgb Hct MCV MCH MCHC RDW Plt Count MPV Sodium Potassium Chloride Carbon Dioxide Anion Gap BUN Creatinine Est GFR (CKD-EPI)AfAm Est GFR (CKD-EPI)NonAf POC Glucometer 153 122 139 Random Glucose Calcium Total Bilirubin AST ALT Alkaline Phosphatase Total Protein Albumin Syphilis Serology RPR Titer COVID-19 (MARI) 12/31/19 13:23 lab noted 12/31/19 13:23 long history of diabetes treated with metformin Assessment: 12/31/19 13:24 alcohol withdrawal Plan: librium regiment
[2019-12-31] MEDS: MELATONIN 5 MG TABLETS PO SCH (22:32)
[2019-12-31] MEDS: THIAMINE HCL 100 MG TABLET (FP) PO SCH (22:36)
[2020-01-01] MEDS: chlordiazePOXIDE HCL 10 MG CAPSULE PO SCH ×2 (05:46→17:34)
[2020-01-01] MEDS: hydrOXYzine PAMOATE 25 MG CAPSULE (FP) PO SCH ×5 (05:46→22:18)
[2020-01-01] MEDS: metFORMIN HCL 500 MG TABLET (FP) PO SCH ×2 (06:01→17:34)
[2020-01-01] MEDS: INSULIN SLIDING SCALE (NOVOLOG) 1 VIAL SQ SCH ×2 (06:02→17:00)
[2020-01-01] MEDS: PRENATAL VITAMINS W/ FOLIC ACID TABLET (FP) PO SCH (09:24)
[2020-01-01] MEDS: NICOTINE 7 MG/24 HOURS TOPICAL PATCH TD SCH (09:24)
--- NOTE | 2020-01-01 12:24 | PN ---
S CIWA - CIWA Score Nausea/Vomitin-Mild Nausea/No Vomiting Muscle Tremors: 1-None Visible, but [place] Anxiety: 1-Mildly Anxious Agitation: 0-Normal Activity Paroxysmal Sweats: No Perspiration Orientation: 0-Oriented Tacttile Disturbances: 0-None Auditory Disturbances: 0-None Visual Disturbances: 1-Very Mild Sensitivity Headache: 1-Very Mild CIWA-Ar Total Score: 5 BHS Progress Note (SOAP) Subjective: 54 years old female was admitted on 12/28/19 for alcohol withdrawal sx management treating with librium detox regiment feels better today less tremor mild anxiety sitting on the edge of the bed eating breakfast and lunch discussing aftercare with staff ms sheldon prefers to go to [facility] for alcohol abuse treatment Objective: 01/01/20 12:26 Vital Signs - 24 hr 12/31/19 12/31/19 12/31/19 12:29 16:32 20:48 Temperature 97.1 F L 97.3 F L 97.3 F L Pulse Rate 80 70 81 Respiratory 18 18 18 Rate Blood Pressure 101/66 110/71 97/60 O2 Sat by Pulse 100 99 Oximetry (%) 01/01/20 01/01/20 06:14 09:15 Temperature 97.7 F 96.8 F L Pulse Rate 72 74 Respiratory 16 18 Rate Blood Pressure 97/62 107/63 O2 Sat by Pulse 97 97 Oximetry (%) Laboratory Tests 12/28/19 12/28/19 12/28/19 13:56 14:00 14:00 WBC 6.0 RBC 5.37 H Hgb 14.9 Hct 43.9 D MCV 81.8 MCH 27.8 MCHC 34.0 RDW 14.6 Plt Count 377 MPV 8.7 Sodium 138 Potassium 4.5 Chloride 102 Carbon Dioxide 29 Anion Gap 7 L BUN 19.8 H Creatinine 0.8 Est GFR (CKD-EPI)AfAm 97.55 Est GFR (CKD-EPI)NonAf 84.17 POC Glucometer 158 Random Glucose 121 H Calcium 10.3 H Total Bilirubin 0.8 AST 20 ALT 26 Alkaline Phosphatase 84 Total Protein 8.1 Albumin 3.6 Syphilis Serology RPR Titer COVID-19 (MARI) 12/28/19 12/28/19 12/28/19 14:00 14:00 14:00 WBC RBC Hgb Hct MCV MCH MCHC RDW Plt Count MPV Sodium Potassium Chloride Carbon Dioxide Anion Gap BUN Creatinine Est GFR (CKD-EPI)AfAm Est GFR (CKD-EPI)NonAf POC Glucometer Random Glucose Calcium Total Bilirubin AST ALT Alkaline Phosphatase Total Protein Albumin Syphilis Serology Reactive A* RPR Titer Reactive 1:1 H COVID-19 (MARI) Not detected 12/28/19 12/29/19 12/29/19 16:49 05:43 11:09 WBC RBC Hgb Hct MCV MCH MCHC RDW Plt Count MPV Sodium Potassium Chloride Carbon Dioxide Anion Gap BUN Creatinine Est GFR (CKD-EPI)AfAm Est GFR (CKD-EPI)NonAf POC Glucometer 187 134 139 Random Glucose Calcium Total Bilirubin AST ALT Alkaline Phosphatase Total Protein Albumin Syphilis Serology RPR Titer COVID-19 (MARI) 12/29/19 12/30/19 12/31/19 16:36 16:38 06:38 WBC RBC Hgb Hct MCV MCH MCHC RDW Plt Count MPV Sodium Potassium Chloride Carbon Dioxide Anion Gap BUN Creatinine Est GFR (CKD-EPI)AfAm Est GFR (CKD-EPI)NonAf POC Glucometer 153 122 139 Random Glucose Calcium Total Bilirubin AST ALT Alkaline Phosphatase Total Protein Albumin Syphilis Serology RPR Titer COVID-19 (MARI) 12/31/19 01/01/20 16:27 05:46 WBC RBC Hgb Hct MCV MCH MCHC RDW Plt Count MPV Sodium Potassium Chloride Carbon Dioxide Anion Gap BUN Creatinine Est GFR (CKD-EPI)AfAm Est GFR (CKD-EPI)NonAf POC Glucometer 87 162 Random Glucose Calcium Total Bilirubin AST ALT Alkaline Phosphatase Total Protein Albumin Syphilis Serology RPR Titer COVID-19 (MARI) syphilis contacted treated Assessment: 01/01/20 12:27 alcohol withdrawal Plan: librium regiment
[2020-01-01] MEDS: THIAMINE HCL 100 MG TABLET (FP) PO SCH (22:18)
[2020-01-01] MEDS: MELATONIN 5 MG TABLETS PO SCH (22:18)
[2020-01-02] MEDS ORDERED: chlordiazePOXIDE HCL 10 MG CAPSULE PO ONE (05:00)
[2020-01-02] MEDS: hydrOXYzine PAMOATE 25 MG CAPSULE (FP) PO SCH ×2 (06:22→09:43)
[2020-01-02] MEDS: metFORMIN HCL 500 MG TABLET (FP) PO SCH (06:22)
[2020-01-02] MEDS: INSULIN SLIDING SCALE (NOVOLOG) 1 VIAL SQ SCH (06:55)
[2020-01-02 09:06] VITALS: BP 128/67; PULSE 64; TEMP 97.8
[2020-01-02] MEDS: PRENATAL VITAMINS W/ FOLIC ACID TABLET (FP) PO SCH (09:43)
[2020-01-02] MEDS: NICOTINE 7 MG/24 HOURS TOPICAL PATCH TD SCH (09:43)
--- NOTE | 2020-01-02 10:05 | DS ---
[facility] Detox Discharge Summary Admission Date: 12/28/19 Discharge Date: 01/02/20 - History Present History: Alcohol Dependence Additional Comments: 54 years old female was admitted on 12/28/19 for alcohol withdrawal sx management treating with librium detox regiment ms sheldon has completed the librium regiment and is tolerated well General Appearance: Yes: No Apparent Distress, Nourished, Appropriately Dressed HEENTM: Yes: EOMI, Hearing grossly Normal, Normocephalic, Normal Voice Respiratory: Yes: Lungs Clear, No Respiratory Distress, No Accessory Muscle Use Neck: Yes: Within Normal Limits, Supple Breast: Yes: Breast Exam Deferred Cardiology: Yes: Regular Rhythm, Regular Rate Abdominal: Yes: Normal Bowel Sounds, Non Tender, Flat, Soft Genitourinary: Yes: Other (deferred) Back: Yes: Normal Inspection Musculoskeletal: Yes: Gait Steady Extremities: Yes: Normal Inspection, Non-Tender Neurological: Yes: Alert, Normal Response Integumentary: Yes: Normal Color, Dry, Warm Pertinent Past History: time for discharge 48 minutes transferred order set from detox to rehab admission - Physical Exam Results Vital Signs: Vital Signs Temperature 97.8 F 01/02/20 09:06 Pulse Rate 64 01/02/20 09:06 Respiratory Rate 18 01/02/20 09:06 Blood Pressure 128/67 01/02/20 09:06 O2 Sat by Pulse Oximetry (%) 100 01/02/20 09:06 Pertinent Admission Physical Exam Findings: alcohol withdrawal Vital Signs - 24 hr 01/01/20 01/01/20 01/02/20 16:45 20:38 06:35 Temperature 97.1 F L 97.3 F L 98.0 F Pulse Rate 75 78 63 Respiratory 18 18 20 Rate Blood Pressure 99/58 L 103/62 96/60 O2 Sat by Pulse 99 100 Oximetry (%) 01/02/20 09:06 Temperature 97.8 F Pulse Rate 64 Respiratory 18 Rate Blood Pressure 128/67 O2 Sat by Pulse 100 Oximetry (%) Laboratory Tests 12/28/19 12/28/19 12/28/19 13:56 14:00 14:00 WBC 6.0 RBC 5.37 H Hgb 14.9 Hct 43.9 D MCV 81.8 MCH 27.8 MCHC 34.0 RDW 14.6 Plt Count 377 MPV 8.7 Sodium 138 Potassium 4.5 Chloride 102 Carbon Dioxide 29 Anion Gap 7 L BUN 19.8 H Creatinine 0.8 Est GFR (CKD-EPI)AfAm 97.55 Est GFR (CKD-EPI)NonAf 84.17 POC Glucometer 158 Random Glucose 121 H Calcium 10.3 H Total Bilirubin 0.8 AST 20 ALT 26 Alkaline Phosphatase 84 Total Protein 8.1 Albumin 3.6 Syphilis Serology RPR Titer COVID-19 (MARI) 12/28/19 12/28/19 12/28/19 14:00 14:00 14:00 WBC RBC Hgb Hct MCV MCH MCHC RDW Plt Count MPV Sodium Potassium Chloride Carbon Dioxide Anion Gap BUN Creatinine Est GFR (CKD-EPI)AfAm Est GFR (CKD-EPI)NonAf POC Glucometer Random Glucose Calcium Total Bilirubin AST ALT Alkaline Phosphatase Total Protein Albumin Syphilis Serology Reactive A* RPR Titer Reactive 1:1 H COVID-19 (MARI) Not detected 12/28/19 12/29/19 12/29/19 16:49 05:43 11:09 WBC RBC Hgb Hct MCV MCH MCHC RDW Plt Count MPV Sodium Potassium Chloride Carbon Dioxide Anion Gap BUN Creatinine Est GFR (CKD-EPI)AfAm Est GFR (CKD-EPI)NonAf POC Glucometer 187 134 139 Random Glucose Calcium Total Bilirubin AST ALT Alkaline Phosphatase Total Protein Albumin Syphilis Serology RPR Titer COVID-19 (MARI) 12/29/19 12/30/19 12/31/19 16:36 16:38 06:38 WBC RBC Hgb Hct MCV MCH MCHC RDW Plt Count MPV Sodium Potassium Chloride Carbon Dioxide Anion Gap BUN Creatinine Est GFR (CKD-EPI)AfAm Est GFR (CKD-EPI)NonAf POC Glucometer 153 122 139 Random Glucose Calcium Total Bilirubin AST ALT Alkaline Phosphatase Total Protein Albumin Syphilis Serology RPR Titer COVID-19 (MARI) 12/31/19 01/01/20 01/01/20 16:27 05:46 16:24 WBC RBC Hgb Hct MCV MCH MCHC RDW Plt Count MPV Sodium Potassium Chloride Carbon Dioxide Anion Gap BUN Creatinine Est GFR (CKD-EPI)AfAm Est GFR (CKD-EPI)NonAf POC Glucometer 87 162 180 Random Glucose Calcium Total Bilirubin AST ALT Alkaline Phosphatase Total Protein Albumin Syphilis Serology RPR Titer COVID-19 (MARI) 01/02/20 06:21 WBC RBC Hgb Hct MCV MCH MCHC RDW Plt Count MPV Sodium Potassium Chloride Carbon Dioxide Anion Gap BUN Creatinine Est GFR (CKD-EPI)AfAm Est GFR (CKD-EPI)NonAf POC Glucometer 129 Random Glucose Calcium Total Bilirubin AST ALT Alkaline Phosphatase Total Protein Albumin Syphilis Serology RPR Titer COVID-19 (MARI) lab noted - Treatment Hospital Course: Detox Protocol Followed, Detoxed Safely, Responded well, Discharged Condition Good, Rehab Referral Accepted Patient has Accepted a Re[facility] Referral to: [facility] - Medication Discharge Medications: Ambulatory Orders metFORMIN HCL [Metformin HCl] 500 mg PO BID 30 Days #60 tablet 06/03/18 Albuterol Sulfate Inhaler - [Ventolin HFA Inhaler -] 2 inh PO Q4H PRN 12/28/19 - Diagnosis (1) Alcohol dependence with withdrawal Status: Acute Qualifiers: Complication of substance-induced condition: uncomplicated Qualified Code(s): F10.230 - Alcohol dependence with withdrawal, uncomplicated (2) HLD (hyperlipidemia) Status: Chronic Qualifiers: Hyperlipidemia type: pure hypercholesterolemia Qualified Code(s): E78.00 - Pure hypercholesterolemia, unspecified; E78.0 - Pure hypercholesterolemia (3) Nicotine dependence Status: Acute Qualifiers: Nicotine product type: cigarettes Substance use status: in withdrawal Qualified Code(s): F17.213 - Nicotine dependence, cigarettes, with withdrawal (4) Syphilis contact, treated Status: Chronic (5) Asthma Status: Chronic Qualifiers: Asthma severity: mild Asthma persistence: intermittent Asthma complication type: with status asthmaticus Qualified Code(s): J45.22 - Mild intermittent asthma with status asthmaticus (6) Type 2 diabetes mellitus without complications Status: Chronic Qualifiers: Diabetes mellitus joint terminal attack controller insulin use: without joint terminal attack controller use Qualified Code(s): E11.9 - Type 2 diabetes mellitus without complications (7) Use of cane as ambulatory aid Status: Chronic (8) Substance induced mood disorder Status: Suspected - AMA Did Patient Leave Against Medical Advice: No CIWA Score - CIWA Score Nausea/Vomitin-Mild Nausea/No Vomiting Muscle Tremors: 1-None Visible, but [place] Anxiety: 1-Mildly Anxious Agitation: 0-Normal Activity Paroxysmal Sweats: No Perspiration Orientation: 0-Oriented Tacttile Disturbances: 0-None Auditory Disturbances: 0-None Visual Disturbances: 0-None Headache: 0-None Present CIWA-Ar Total Score: 3
== END 2020-01-02 10:56 | disposition other institution (70) | DRG 774 ==
LOC: YASAS 11:06 → Y3N 13:50
PROVIDERS: ADMIT Allergy & Immunology; ATTEND Allergy & Immunology
PROC: HZ2ZZZZ Detoxification Services for Substance Abuse Treatment (ICD-10-PCS; principal; 2019-12-28)
DX: F10.230 Alcohol dependence with withdrawal, uncomplicated (principal); F14.20 Cocaine dependence, uncomplicated; F12.20 Cannabis dependence, uncomplicated; F17.210 Nicotine dependence, cigarettes, uncomplicated; F19.24 Other psychoactive substance dependence with psychoactive substance-induced mood disorder; F32.9 Major depressive disorder, single episode, unspecified; E78.5 Hyperlipidemia, unspecified; E78.00 Pure hypercholesterolemia, unspecified; J45.909 Unspecified asthma, uncomplicated; E11.9 Type 2 diabetes mellitus without complications; Z79.84 Long term (current) use of oral hypoglycemic drugs; Z98.51 Tubal ligation status; Z98.890 Other specified postprocedural states; Z99.89 Dependence on other enabling machines and devices; Z88.6 Allergy status to analgesic agent
CPT/HCPCS: 36415; 71046-TC-FY; 80053; 82962; 85027; 86593; 86780; C9803; U0003

== ENCOUNTER 2020-01-02 11:29 | Inpatient (IN) | payer OTHER ==
[2020-01-02] MEDS ORDERED: MENTHOL/PHENOL 1 EACH UD MM PRN (12:17)
[2020-01-02] MEDS ORDERED: LOPERAMIDE HCL 2 MG CAPSULE PO PRN (12:17)
[2020-01-02] MEDS ORDERED: guaiFENesin 200 MG/10 ML 10 ML UNIT-DOSE CUPS PO PRN (12:17)
[2020-01-02] MEDS ORDERED: ACETAMINOPHEN 325 MG TABLET (FP) PO PRN (12:17)
[2020-01-02] MEDS ORDERED: hydrOXYzine PAMOATE 25 MG CAPSULE (FP) PO PRN (12:17)
[2020-01-02] MEDS ORDERED: P-EPHED 60MG/TRIPROLIDI 2.5MG TABLET PO PRN (12:17)
[2020-01-02] MEDS ORDERED: MAGNESIUM HYDROX 2400MG/30ML ORAL SUSPENSION 30 ML CUP PO PRN (12:17)
[2020-01-02] MEDS ORDERED: NICOTINE POLACRILEX 2 MG GUM BUC PRN (12:17)
[2020-01-02] MEDS ORDERED: MAG HYDROX/AL HYDROX/SIMETH 30 ML UNIT-DOSE CUP PO PRN (12:17)
[2020-01-02] MEDS: metFORMIN HCL 500 MG TABLET (FP) PO SCH (16:31)
[2020-01-02] MEDS: INSULIN SLIDING SCALE (NOVOLOG) 1 VIAL SQ SCH (16:32)
[2020-01-02] MEDS: THIAMINE HCL 100 MG TABLET (FP) PO SCH (22:33)
[2020-01-02] MEDS: MELATONIN 5 MG TABLETS PO SCH (22:33)
[2020-01-03] MEDS: metFORMIN HCL 500 MG TABLET (FP) PO SCH ×2 (06:47→16:31)
[2020-01-03] MEDS: INSULIN SLIDING SCALE (NOVOLOG) 1 VIAL SQ SCH ×2 (06:48→16:32)
[2020-01-03] MEDS: PRENATAL VITAMINS W/ FOLIC ACID TABLET (FP) PO SCH (09:35)
[2020-01-03] MEDS: NICOTINE 7 MG/24 HOURS TOPICAL PATCH TD SCH (09:35)
[2020-01-03] MEDS: LIDOCAINE 5% TOPICAL PATCH TP SCH (11:00)
[2020-01-03] MEDS: ARIPiprazole 5 MG TABLET PO SCH (11:55)
[2020-01-03] MEDS ORDERED: INSULIN (NOVOLOG) ASPART 100 UNITS/ML 10ML VIAL ONE (16:30)
[2020-01-03] MEDS: THIAMINE HCL 100 MG TABLET (FP) PO SCH (21:06)
[2020-01-03] MEDS: MELATONIN 5 MG TABLETS PO SCH (21:06)
[2020-01-03] MEDS: MIRTAZAPINE 15 MG TABLET (FP) PO SCH (21:06)
[2020-01-03] MEDS: LIDOCAINE PATCH REMOVAL MC SCH (21:07)
[2020-01-04] MEDS: metFORMIN HCL 500 MG TABLET (FP) PO SCH ×2 (06:53→17:23)
[2020-01-04] MEDS: INSULIN SLIDING SCALE (NOVOLOG) 1 VIAL SQ SCH ×2 (06:53→17:24)
[2020-01-04] MEDS: ARIPiprazole 5 MG TABLET PO SCH (09:14)
[2020-01-04] MEDS: NICOTINE 7 MG/24 HOURS TOPICAL PATCH TD SCH (09:15)
[2020-01-04] MEDS: LIDOCAINE 5% TOPICAL PATCH TP SCH (09:15)
[2020-01-04] MEDS: PRENATAL VITAMINS W/ FOLIC ACID TABLET (FP) PO SCH (09:15)
[2020-01-04] MEDS: LIDOCAINE PATCH REMOVAL MC SCH (22:34)
[2020-01-04] MEDS: MELATONIN 5 MG TABLETS PO SCH (22:34)
[2020-01-04] MEDS: THIAMINE HCL 100 MG TABLET (FP) PO SCH (22:35)
[2020-01-04] MEDS: MIRTAZAPINE 15 MG TABLET (FP) PO SCH (22:35)
[2020-01-05] MEDS: metFORMIN HCL 500 MG TABLET (FP) PO SCH ×2 (06:22→17:02)
[2020-01-05] MEDS: INSULIN SLIDING SCALE (NOVOLOG) 1 VIAL SQ SCH ×2 (06:23→17:02)
[2020-01-05] MEDS ORDERED: ONDANSETRON *ODT* 4 MG TABLET SL PRN (09:41)
[2020-01-05] MEDS: NICOTINE 7 MG/24 HOURS TOPICAL PATCH TD SCH (10:40)
[2020-01-05] MEDS: PRENATAL VITAMINS W/ FOLIC ACID TABLET (FP) PO SCH (10:40)
[2020-01-05] MEDS: ARIPiprazole 5 MG TABLET PO SCH (10:40)
[2020-01-05] MEDS: LIDOCAINE 5% TOPICAL PATCH TP SCH (10:40)
[2020-01-05] MEDS: MIRTAZAPINE 15 MG TABLET (FP) PO SCH (21:22)
[2020-01-05] MEDS: THIAMINE HCL 100 MG TABLET (FP) PO SCH (21:22)
[2020-01-05] MEDS: LIDOCAINE PATCH REMOVAL MC SCH (21:23)
[2020-01-05] MEDS: MELATONIN 5 MG TABLETS PO SCH (21:23)
[2020-01-06] MEDS: metFORMIN HCL 500 MG TABLET (FP) PO SCH ×2 (06:49→16:30)
[2020-01-06] MEDS: INSULIN SLIDING SCALE (NOVOLOG) 1 VIAL SQ SCH ×2 (06:50→16:31)
[2020-01-06] MEDS: ARIPiprazole 5 MG TABLET PO SCH (09:57)
[2020-01-06] MEDS: LIDOCAINE 5% TOPICAL PATCH TP SCH (09:57)
[2020-01-06] MEDS: PRENATAL VITAMINS W/ FOLIC ACID TABLET (FP) PO SCH (09:58)
[2020-01-06] MEDS: NICOTINE 7 MG/24 HOURS TOPICAL PATCH TD SCH (09:58)
[2020-01-06] MEDS: MIRTAZAPINE 15 MG TABLET (FP) PO SCH (22:00)
[2020-01-06] MEDS: THIAMINE HCL 100 MG TABLET (FP) PO SCH (23:00)
[2020-01-06] MEDS: LIDOCAINE PATCH REMOVAL MC SCH (23:00)
[2020-01-06] MEDS: MELATONIN 5 MG TABLETS PO SCH (23:00)
[2020-01-07] MEDS: ACETAMINOPHEN 325 MG TABLET (FP) PO PRN (06:55)
[2020-01-07] MEDS: INSULIN SLIDING SCALE (NOVOLOG) 1 VIAL SQ SCH ×2 (06:55→16:26)
[2020-01-07] MEDS: metFORMIN HCL 500 MG TABLET (FP) PO SCH ×2 (06:56→16:26)
[2020-01-07] MEDS: ARIPiprazole 5 MG TABLET PO SCH (09:15)
[2020-01-07] MEDS: LIDOCAINE 5% TOPICAL PATCH TP SCH (09:15)
[2020-01-07] MEDS: NICOTINE 7 MG/24 HOURS TOPICAL PATCH TD SCH (09:16)
[2020-01-07] MEDS: PRENATAL VITAMINS W/ FOLIC ACID TABLET (FP) PO SCH (09:16)
[2020-01-07] MEDS: MELATONIN 5 MG TABLETS PO SCH (21:00)
[2020-01-07] MEDS: THIAMINE HCL 100 MG TABLET (FP) PO SCH (21:00)
[2020-01-07] MEDS: MIRTAZAPINE 15 MG TABLET (FP) PO SCH (21:00)
[2020-01-07] MEDS: LIDOCAINE PATCH REMOVAL MC SCH (21:01)
[2020-01-08] MEDS: INSULIN SLIDING SCALE (NOVOLOG) 1 VIAL SQ SCH ×2 (06:53→17:53)
[2020-01-08] MEDS: metFORMIN HCL 500 MG TABLET (FP) PO SCH ×2 (06:53→17:51)
[2020-01-08] MEDS: NICOTINE 7 MG/24 HOURS TOPICAL PATCH TD SCH (09:36)
[2020-01-08] MEDS: ARIPiprazole 5 MG TABLET PO SCH (09:36)
[2020-01-08] MEDS: LIDOCAINE 5% TOPICAL PATCH TP SCH (09:36)
[2020-01-08] MEDS: PRENATAL VITAMINS W/ FOLIC ACID TABLET (FP) PO SCH (09:36)
[2020-01-08] MEDS: MELATONIN 5 MG TABLETS PO SCH (21:05)
[2020-01-08] MEDS: LIDOCAINE PATCH REMOVAL MC SCH (21:05)
[2020-01-08] MEDS: THIAMINE HCL 100 MG TABLET (FP) PO SCH (21:05)
[2020-01-08] MEDS: MIRTAZAPINE 15 MG TABLET (FP) PO SCH (21:05)
[2020-01-09] MEDS: metFORMIN HCL 500 MG TABLET (FP) PO SCH ×2 (06:44→16:52)
[2020-01-09] MEDS: INSULIN SLIDING SCALE (NOVOLOG) 1 VIAL SQ SCH ×2 (06:44→16:53)
[2020-01-09] MEDS: PRENATAL VITAMINS W/ FOLIC ACID TABLET (FP) PO SCH (09:33)
[2020-01-09] MEDS: ARIPiprazole 5 MG TABLET PO SCH (09:33)
[2020-01-09] MEDS: NICOTINE 7 MG/24 HOURS TOPICAL PATCH TD SCH (09:33)
[2020-01-09] MEDS: LIDOCAINE 5% TOPICAL PATCH TP SCH (09:34)
[2020-01-09] MEDS: MAGNESIUM CITRATE 300 ML BOTTLE PO PRN (09:35)
[2020-01-09] MEDS ORDERED: INSULIN (NOVOLOG) ASPART 100 UNITS/ML 10ML VIAL ONE (16:37)
[2020-01-09] MEDS: THIAMINE HCL 100 MG TABLET (FP) PO SCH (21:12)
[2020-01-09] MEDS: MELATONIN 5 MG TABLETS PO SCH (21:12)
[2020-01-09] MEDS: MIRTAZAPINE 15 MG TABLET (FP) PO SCH (21:12)
[2020-01-09] MEDS: LIDOCAINE PATCH REMOVAL MC SCH (21:13)
[2020-01-10] MEDS: metFORMIN HCL 500 MG TABLET (FP) PO SCH ×2 (06:40→17:08)
[2020-01-10] MEDS: INSULIN SLIDING SCALE (NOVOLOG) 1 VIAL SQ SCH ×2 (06:41→16:45)
[2020-01-10] MEDS: LIDOCAINE 5% TOPICAL PATCH TP SCH (09:28)
[2020-01-10] MEDS: NICOTINE 7 MG/24 HOURS TOPICAL PATCH TD SCH (09:28)
[2020-01-10] MEDS: ARIPiprazole 5 MG TABLET PO SCH (09:28)
[2020-01-10] MEDS: PRENATAL VITAMINS W/ FOLIC ACID TABLET (FP) PO SCH (09:28)
[2020-01-10] MEDS: THIAMINE HCL 100 MG TABLET (FP) PO SCH (21:05)
[2020-01-10] MEDS: MIRTAZAPINE 15 MG TABLET (FP) PO SCH (21:05)
[2020-01-10] MEDS: MELATONIN 5 MG TABLETS PO SCH (21:05)
[2020-01-10] MEDS: LIDOCAINE PATCH REMOVAL MC SCH (21:06)
[2020-01-11] MEDS: metFORMIN HCL 500 MG TABLET (FP) PO SCH ×2 (06:20→16:36)
[2020-01-11] MEDS: INSULIN SLIDING SCALE (NOVOLOG) 1 VIAL SQ SCH ×2 (06:21→16:44)
[2020-01-11] MEDS: ACETAMINOPHEN 325 MG TABLET (FP) PO PRN (07:50)
[2020-01-11] MEDS: PRENATAL VITAMINS W/ FOLIC ACID TABLET (FP) PO SCH (09:25)
[2020-01-11] MEDS: LIDOCAINE 5% TOPICAL PATCH TP SCH (09:25)
[2020-01-11] MEDS: ARIPiprazole 5 MG TABLET PO SCH (09:25)
[2020-01-11] MEDS: NICOTINE 7 MG/24 HOURS TOPICAL PATCH TD SCH (09:27)
[2020-01-11] MEDS: MELATONIN 5 MG TABLETS PO SCH (21:37)
[2020-01-11] MEDS: THIAMINE HCL 100 MG TABLET (FP) PO SCH (21:37)
[2020-01-11] MEDS: LIDOCAINE PATCH REMOVAL MC SCH (21:37)
[2020-01-11] MEDS: MIRTAZAPINE 15 MG TABLET (FP) PO SCH (21:38)
[2020-01-12] MEDS: metFORMIN HCL 500 MG TABLET (FP) PO SCH ×2 (06:34→17:04)
[2020-01-12] MEDS: INSULIN SLIDING SCALE (NOVOLOG) 1 VIAL SQ SCH ×2 (06:34→17:22)
[2020-01-12] MEDS: ARIPiprazole 5 MG TABLET PO SCH (09:29)
[2020-01-12] MEDS: PRENATAL VITAMINS W/ FOLIC ACID TABLET (FP) PO SCH (09:29)
[2020-01-12] MEDS: LIDOCAINE 5% TOPICAL PATCH TP SCH (09:29)
[2020-01-12] MEDS: NICOTINE 7 MG/24 HOURS TOPICAL PATCH TD SCH (09:30)
[2020-01-12] MEDS: THIAMINE HCL 100 MG TABLET (FP) PO SCH (21:17)
[2020-01-12] MEDS: MELATONIN 5 MG TABLETS PO SCH (21:17)
[2020-01-12] MEDS: MIRTAZAPINE 15 MG TABLET (FP) PO SCH (21:17)
[2020-01-12] MEDS: LIDOCAINE PATCH REMOVAL MC SCH (21:18)
[2020-01-13] MEDS: metFORMIN HCL 500 MG TABLET (FP) PO SCH ×2 (06:22→16:44)
[2020-01-13] MEDS: INSULIN SLIDING SCALE (NOVOLOG) 1 VIAL SQ SCH ×2 (06:23→16:46)
[2020-01-13] MEDS: LIDOCAINE 5% TOPICAL PATCH TP SCH (09:26)
[2020-01-13] MEDS: PRENATAL VITAMINS W/ FOLIC ACID TABLET (FP) PO SCH (09:26)
[2020-01-13] MEDS: NICOTINE 7 MG/24 HOURS TOPICAL PATCH TD SCH (09:26)
[2020-01-13] MEDS: ARIPiprazole 5 MG TABLET PO SCH (09:26)
[2020-01-13] MEDS: MIRTAZAPINE 15 MG TABLET (FP) PO SCH (21:04)
[2020-01-13] MEDS: MELATONIN 5 MG TABLETS PO SCH (21:04)
[2020-01-13] MEDS: THIAMINE HCL 100 MG TABLET (FP) PO SCH (21:04)
[2020-01-13] MEDS: LIDOCAINE PATCH REMOVAL MC SCH (21:05)
[2020-01-14] MEDS: INSULIN SLIDING SCALE (NOVOLOG) 1 VIAL SQ SCH ×2 (06:23→16:45)
[2020-01-14] MEDS: metFORMIN HCL 500 MG TABLET (FP) PO SCH ×2 (06:23→16:44)
[2020-01-14] MEDS: PRENATAL VITAMINS W/ FOLIC ACID TABLET (FP) PO SCH (09:04)
[2020-01-14] MEDS: ARIPiprazole 5 MG TABLET PO SCH (09:04)
[2020-01-14] MEDS: MAGNESIUM CITRATE 300 ML BOTTLE PO PRN (09:04)
[2020-01-14] MEDS: LIDOCAINE 5% TOPICAL PATCH TP SCH (09:15)
[2020-01-14] MEDS: NICOTINE 7 MG/24 HOURS TOPICAL PATCH TD SCH (09:16)
[2020-01-14] MEDS ORDERED: SODIUM PHOSPHATE/NA BIPHOS 133 ML ENEMA RC ONE (12:25)
[2020-01-14] MEDS: DOCUSATE SODIUM 100 MG CAPSULE (FP) PO SCH ×2 (13:26→21:19)
[2020-01-14] MEDS: MIRTAZAPINE 15 MG TABLET (FP) PO SCH (21:19)
[2020-01-14] MEDS: MELATONIN 5 MG TABLETS PO SCH (21:19)
[2020-01-14] MEDS: LIDOCAINE PATCH REMOVAL MC SCH (21:19)
[2020-01-14] MEDS: THIAMINE HCL 100 MG TABLET (FP) PO SCH (21:20)
[2020-01-15] MEDS: DOCUSATE SODIUM 100 MG CAPSULE (FP) PO SCH ×3 (06:26→21:23)
[2020-01-15] MEDS: metFORMIN HCL 500 MG TABLET (FP) PO SCH ×2 (06:26→16:22)
[2020-01-15] MEDS: INSULIN SLIDING SCALE (NOVOLOG) 1 VIAL SQ SCH ×2 (06:27→16:22)
[2020-01-15] MEDS: LIDOCAINE 5% TOPICAL PATCH TP SCH (09:29)
[2020-01-15] MEDS: PRENATAL VITAMINS W/ FOLIC ACID TABLET (FP) PO SCH (09:30)
[2020-01-15] MEDS: NICOTINE 7 MG/24 HOURS TOPICAL PATCH TD SCH (09:30)
[2020-01-15] MEDS: ARIPiprazole 5 MG TABLET PO SCH (09:30)
[2020-01-15] MEDS: THIAMINE HCL 100 MG TABLET (FP) PO SCH (21:23)
[2020-01-15] MEDS: MIRTAZAPINE 15 MG TABLET (FP) PO SCH (21:23)
[2020-01-15] MEDS: MELATONIN 5 MG TABLETS PO SCH (21:23)
[2020-01-15] MEDS: LIDOCAINE PATCH REMOVAL MC SCH (21:24)
[2020-01-16] MEDS: metFORMIN HCL 500 MG TABLET (FP) PO SCH ×2 (06:36→16:41)
[2020-01-16] MEDS: INSULIN SLIDING SCALE (NOVOLOG) 1 VIAL SQ SCH ×2 (06:37→16:42)
[2020-01-16] MEDS: DOCUSATE SODIUM 100 MG CAPSULE (FP) PO SCH ×3 (06:37→20:59)
[2020-01-16] MEDS: PRENATAL VITAMINS W/ FOLIC ACID TABLET (FP) PO SCH (09:23)
[2020-01-16] MEDS: NICOTINE 7 MG/24 HOURS TOPICAL PATCH TD SCH (09:23)
[2020-01-16] MEDS: LIDOCAINE 5% TOPICAL PATCH TP SCH (09:23)
[2020-01-16] MEDS: ARIPiprazole 5 MG TABLET PO SCH (09:23)
[2020-01-16] MEDS: MELATONIN 5 MG TABLETS PO SCH (20:59)
[2020-01-16] MEDS: LIDOCAINE PATCH REMOVAL MC SCH (20:59)
[2020-01-16] MEDS: THIAMINE HCL 100 MG TABLET (FP) PO SCH (20:59)
[2020-01-16] MEDS: MIRTAZAPINE 15 MG TABLET (FP) PO SCH (20:59)
[2020-01-16] MEDS ORDERED: INSULIN (NOVOLOG) ASPART 100 UNITS/ML 10ML VIAL ONE (21:52)
[2020-01-17] MEDS: metFORMIN HCL 500 MG TABLET (FP) PO SCH ×2 (06:34→16:52)
[2020-01-17] MEDS: DOCUSATE SODIUM 100 MG CAPSULE (FP) PO SCH (06:34)
[2020-01-17] MEDS: INSULIN SLIDING SCALE (NOVOLOG) 1 VIAL SQ SCH ×2 (06:38→16:54)
[2020-01-17] MEDS: NICOTINE 7 MG/24 HOURS TOPICAL PATCH TD SCH (09:42)
[2020-01-17] MEDS: LIDOCAINE 5% TOPICAL PATCH TP SCH (09:42)
[2020-01-17] MEDS: POLYETHYLENE GLYCOL 3350 119 GM BTL PO SCH ×2 (09:42→21:04)
[2020-01-17] MEDS: ARIPiprazole 5 MG TABLET PO SCH (09:42)
[2020-01-17] MEDS: PRENATAL VITAMINS W/ FOLIC ACID TABLET (FP) PO SCH (09:42)
[2020-01-17] MEDS ORDERED: PT OWN MED DRAWER 7, Y5N ONE (10:45)
[2020-01-17] MEDS: THIAMINE HCL 100 MG TABLET (FP) PO SCH (21:03)
[2020-01-17] MEDS: MIRTAZAPINE 15 MG TABLET (FP) PO SCH (21:04)
[2020-01-17] MEDS: LIDOCAINE PATCH REMOVAL MC SCH (21:04)
[2020-01-17] MEDS: MELATONIN 5 MG TABLETS PO SCH (21:04)
[2020-01-17] MEDS ORDERED: INSULIN (NOVOLOG) ASPART 100 UNITS/ML 10ML VIAL ONE (22:16)
[2020-01-18] MEDS: metFORMIN HCL 500 MG TABLET (FP) PO SCH ×2 (06:04→16:37)
[2020-01-18] MEDS: INSULIN SLIDING SCALE (NOVOLOG) 1 VIAL SQ SCH ×2 (06:05→16:38)
[2020-01-18] MEDS ORDERED: PT OWN MED DRAWER 7, Y5N ONE ×2 (08:58→19:46)
[2020-01-18] MEDS: LIDOCAINE 5% TOPICAL PATCH TP SCH (09:51)
[2020-01-18] MEDS: ARIPiprazole 5 MG TABLET PO SCH (09:51)
[2020-01-18] MEDS: POLYETHYLENE GLYCOL 3350 119 GM BTL PO SCH ×2 (09:52→21:27)
[2020-01-18] MEDS: NICOTINE 7 MG/24 HOURS TOPICAL PATCH TD SCH (09:52)
[2020-01-18] MEDS: PRENATAL VITAMINS W/ FOLIC ACID TABLET (FP) PO SCH (09:52)
[2020-01-18] MEDS: THIAMINE HCL 100 MG TABLET (FP) PO SCH (21:25)
[2020-01-18] MEDS: MIRTAZAPINE 15 MG TABLET (FP) PO SCH (21:25)
[2020-01-18] MEDS: MELATONIN 5 MG TABLETS PO SCH (21:27)
[2020-01-18] MEDS: LIDOCAINE PATCH REMOVAL MC SCH (21:27)
[2020-01-18] MEDS ORDERED: ACETAMINOPHEN 325 MG TABLET (FP) ONE (22:19)
[2020-01-19] MEDS: metFORMIN HCL 500 MG TABLET (FP) PO SCH ×2 (06:40→16:32)
[2020-01-19] MEDS: INSULIN SLIDING SCALE (NOVOLOG) 1 VIAL SQ SCH ×2 (06:40→16:33)
[2020-01-19] MEDS: ARIPiprazole 5 MG TABLET PO SCH (09:22)
[2020-01-19] MEDS: NICOTINE 7 MG/24 HOURS TOPICAL PATCH TD SCH (09:23)
[2020-01-19] MEDS: PRENATAL VITAMINS W/ FOLIC ACID TABLET (FP) PO SCH (09:23)
[2020-01-19] MEDS: LIDOCAINE 5% TOPICAL PATCH TP SCH (09:24)
[2020-01-19] MEDS: POLYETHYLENE GLYCOL 3350 119 GM BTL PO SCH ×2 (09:24→21:11)
[2020-01-19] MEDS ORDERED: PT OWN MED DRAWER 7, Y5N ONE (09:25)
[2020-01-19] MEDS: LIDOCAINE PATCH REMOVAL MC SCH (21:10)
[2020-01-19] MEDS: MIRTAZAPINE 15 MG TABLET (FP) PO SCH (21:10)
[2020-01-19] MEDS: MELATONIN 5 MG TABLETS PO SCH (21:10)
[2020-01-19] MEDS: THIAMINE HCL 100 MG TABLET (FP) PO SCH (21:11)
[2020-01-20] MEDS: INSULIN SLIDING SCALE (NOVOLOG) 1 VIAL SQ SCH ×2 (06:31→17:01)
[2020-01-20] MEDS: metFORMIN HCL 500 MG TABLET (FP) PO SCH ×2 (06:31→16:55)
[2020-01-20] MEDS: LIDOCAINE 5% TOPICAL PATCH TP SCH (09:53)
[2020-01-20] MEDS: ARIPiprazole 5 MG TABLET PO SCH (09:53)
[2020-01-20] MEDS: POLYETHYLENE GLYCOL 3350 119 GM BTL PO SCH ×2 (09:53→21:36)
[2020-01-20] MEDS: PRENATAL VITAMINS W/ FOLIC ACID TABLET (FP) PO SCH (09:54)
[2020-01-20] MEDS: NICOTINE 7 MG/24 HOURS TOPICAL PATCH TD SCH (09:54)
[2020-01-20] MEDS: THIAMINE HCL 100 MG TABLET (FP) PO SCH (21:35)
[2020-01-20] MEDS: MIRTAZAPINE 15 MG TABLET (FP) PO SCH (21:35)
[2020-01-20] MEDS: LIDOCAINE PATCH REMOVAL MC SCH (21:35)
[2020-01-20] MEDS: MELATONIN 5 MG TABLETS PO SCH (21:35)
[2020-01-21] MEDS: metFORMIN HCL 500 MG TABLET (FP) PO SCH ×2 (06:26→16:40)
[2020-01-21] MEDS: INSULIN SLIDING SCALE (NOVOLOG) 1 VIAL SQ SCH ×2 (06:26→16:48)
[2020-01-21] MEDS ORDERED: PT OWN MED DRAWER 7, Y5N ONE (08:33)
[2020-01-21] MEDS: PRENATAL VITAMINS W/ FOLIC ACID TABLET (FP) PO SCH (09:38)
[2020-01-21] MEDS: ARIPiprazole 5 MG TABLET PO SCH (09:38)
[2020-01-21] MEDS: LIDOCAINE 5% TOPICAL PATCH TP SCH (09:38)
[2020-01-21] MEDS: NICOTINE 7 MG/24 HOURS TOPICAL PATCH TD SCH (09:39)
[2020-01-21] MEDS: POLYETHYLENE GLYCOL 3350 119 GM BTL PO SCH ×2 (09:40→21:04)
[2020-01-21] MEDS: THIAMINE HCL 100 MG TABLET (FP) PO SCH (21:03)
[2020-01-21] MEDS: MELATONIN 5 MG TABLETS PO SCH (21:03)
[2020-01-21] MEDS: MIRTAZAPINE 15 MG TABLET (FP) PO SCH (21:03)
[2020-01-21] MEDS: LIDOCAINE PATCH REMOVAL MC SCH (21:04)
[2020-01-21] MEDS ORDERED: INSULIN (NOVOLOG) ASPART 100 UNITS/ML 10ML VIAL ONE (22:08)
[2020-01-22] MEDS: INSULIN SLIDING SCALE (NOVOLOG) 1 VIAL SQ SCH ×2 (06:43→16:59)
[2020-01-22] MEDS: metFORMIN HCL 500 MG TABLET (FP) PO SCH ×2 (06:43→16:58)
[2020-01-22] MEDS ORDERED: PT OWN MED DRAWER 7, Y5N ONE ×2 (08:55→19:09)
[2020-01-22] MEDS: LIDOCAINE 5% TOPICAL PATCH TP SCH (09:48)
[2020-01-22] MEDS: ARIPiprazole 5 MG TABLET PO SCH (09:48)
[2020-01-22] MEDS: POLYETHYLENE GLYCOL 3350 119 GM BTL PO SCH ×2 (09:48→21:02)
[2020-01-22] MEDS: PRENATAL VITAMINS W/ FOLIC ACID TABLET (FP) PO SCH (09:48)
[2020-01-22] MEDS: NICOTINE 7 MG/24 HOURS TOPICAL PATCH TD SCH (09:49)
[2020-01-22] MEDS: MELATONIN 5 MG TABLETS PO SCH (21:01)
[2020-01-22] MEDS: LIDOCAINE PATCH REMOVAL MC SCH (21:01)
[2020-01-22] MEDS: MIRTAZAPINE 15 MG TABLET (FP) PO SCH (21:01)
[2020-01-22] MEDS: THIAMINE HCL 100 MG TABLET (FP) PO SCH (21:01)
[2020-01-23] MEDS: INSULIN SLIDING SCALE (NOVOLOG) 1 VIAL SQ SCH ×2 (06:34→16:26)
[2020-01-23] MEDS: metFORMIN HCL 500 MG TABLET (FP) PO SCH ×2 (06:34→16:25)
[2020-01-23] MEDS: POLYETHYLENE GLYCOL 3350 119 GM BTL PO SCH ×2 (09:33→21:00)
[2020-01-23] MEDS: LIDOCAINE 5% TOPICAL PATCH TP SCH (09:33)
[2020-01-23] MEDS: NICOTINE 7 MG/24 HOURS TOPICAL PATCH TD SCH (09:34)
[2020-01-23] MEDS: ARIPiprazole 5 MG TABLET PO SCH (09:34)
[2020-01-23] MEDS: PRENATAL VITAMINS W/ FOLIC ACID TABLET (FP) PO SCH (09:34)
[2020-01-23] MEDS ORDERED: PT OWN MED DRAWER 7, Y5N ONE (10:54)
[2020-01-23] MEDS: ACETAMINOPHEN 325 MG TABLET (FP) PO PRN (14:15)
[2020-01-23] MEDS: MIRTAZAPINE 15 MG TABLET (FP) PO SCH (20:59)
[2020-01-23] MEDS: MELATONIN 5 MG TABLETS PO SCH (20:59)
[2020-01-23] MEDS: THIAMINE HCL 100 MG TABLET (FP) PO SCH (20:59)
[2020-01-23] MEDS: LIDOCAINE PATCH REMOVAL MC SCH (21:00)
[2020-01-24] MEDS: metFORMIN HCL 500 MG TABLET (FP) PO SCH ×2 (06:26→16:23)
[2020-01-24] MEDS: INSULIN SLIDING SCALE (NOVOLOG) 1 VIAL SQ SCH ×2 (06:27→16:24)
[2020-01-24] MEDS ORDERED: PT OWN MED DRAWER 7, Y5N ONE (08:46)
[2020-01-24] MEDS: LIDOCAINE 5% TOPICAL PATCH TP SCH (09:51)
[2020-01-24] MEDS: PRENATAL VITAMINS W/ FOLIC ACID TABLET (FP) PO SCH (09:52)
[2020-01-24] MEDS: POLYETHYLENE GLYCOL 3350 119 GM BTL PO SCH ×2 (09:52→21:28)
[2020-01-24] MEDS: NICOTINE 7 MG/24 HOURS TOPICAL PATCH TD SCH (09:52)
[2020-01-24] MEDS: ARIPiprazole 5 MG TABLET PO SCH (09:52)
[2020-01-24] MEDS: LIDOCAINE PATCH REMOVAL MC SCH (21:28)
[2020-01-24] MEDS: MELATONIN 5 MG TABLETS PO SCH (21:28)
[2020-01-24] MEDS: MIRTAZAPINE 15 MG TABLET (FP) PO SCH (21:29)
[2020-01-24] MEDS: THIAMINE HCL 100 MG TABLET (FP) PO SCH (21:29)
[2020-01-25] MEDS: INSULIN SLIDING SCALE (NOVOLOG) 1 VIAL SQ SCH ×2 (06:23→16:26)
[2020-01-25] MEDS: metFORMIN HCL 500 MG TABLET (FP) PO SCH ×2 (06:25→16:25)
[2020-01-25] MEDS: ARIPiprazole 5 MG TABLET PO SCH (09:40)
[2020-01-25] MEDS: PRENATAL VITAMINS W/ FOLIC ACID TABLET (FP) PO SCH (09:41)
[2020-01-25] MEDS: LIDOCAINE 5% TOPICAL PATCH TP SCH (09:41)
[2020-01-25] MEDS: NICOTINE 7 MG/24 HOURS TOPICAL PATCH TD SCH (09:42)
[2020-01-25] MEDS: POLYETHYLENE GLYCOL 3350 119 GM BTL PO SCH ×2 (09:42→21:02)
[2020-01-25] MEDS: MIRTAZAPINE 15 MG TABLET (FP) PO SCH (21:01)
[2020-01-25] MEDS: MELATONIN 5 MG TABLETS PO SCH (21:01)
[2020-01-25] MEDS: THIAMINE HCL 100 MG TABLET (FP) PO SCH (21:01)
[2020-01-25] MEDS: LIDOCAINE PATCH REMOVAL MC SCH (21:02)
[2020-01-26] MEDS: metFORMIN HCL 500 MG TABLET (FP) PO SCH ×2 (06:46→16:31)
[2020-01-26] MEDS: INSULIN SLIDING SCALE (NOVOLOG) 1 VIAL SQ SCH ×2 (06:47→16:31)
[2020-01-26] MEDS ORDERED: PT OWN MED DRAWER 7, Y5N ONE ×2 (08:10→19:02)
[2020-01-26] MEDS: ARIPiprazole 5 MG TABLET PO SCH (09:40)
[2020-01-26] MEDS: PRENATAL VITAMINS W/ FOLIC ACID TABLET (FP) PO SCH (09:40)
[2020-01-26] MEDS: POLYETHYLENE GLYCOL 3350 119 GM BTL PO SCH ×2 (09:41→21:18)
[2020-01-26] MEDS: LIDOCAINE 5% TOPICAL PATCH TP SCH (09:41)
[2020-01-26] MEDS: NICOTINE 7 MG/24 HOURS TOPICAL PATCH TD SCH (09:42)
[2020-01-26] MEDS: MELATONIN 5 MG TABLETS PO SCH (21:17)
[2020-01-26] MEDS: MIRTAZAPINE 15 MG TABLET (FP) PO SCH (21:17)
[2020-01-26] MEDS: LIDOCAINE PATCH REMOVAL MC SCH (21:18)
[2020-01-26] MEDS: THIAMINE HCL 100 MG TABLET (FP) PO SCH (21:18)
[2020-01-27] MEDS: INSULIN SLIDING SCALE (NOVOLOG) 1 VIAL SQ SCH ×2 (06:39→16:26)
[2020-01-27] MEDS: metFORMIN HCL 500 MG TABLET (FP) PO SCH ×2 (06:39→16:27)
[2020-01-27] MEDS: ARIPiprazole 5 MG TABLET PO SCH (09:40)
[2020-01-27] MEDS: PRENATAL VITAMINS W/ FOLIC ACID TABLET (FP) PO SCH (09:40)
[2020-01-27] MEDS: NICOTINE 7 MG/24 HOURS TOPICAL PATCH TD SCH (09:40)
[2020-01-27] MEDS: LIDOCAINE 5% TOPICAL PATCH TP SCH (09:41)
[2020-01-27] MEDS: POLYETHYLENE GLYCOL 3350 119 GM BTL PO SCH ×2 (09:42→21:03)
[2020-01-27] MEDS: THIAMINE HCL 100 MG TABLET (FP) PO SCH (21:02)
[2020-01-27] MEDS: MELATONIN 5 MG TABLETS PO SCH (21:02)
[2020-01-27] MEDS: LIDOCAINE PATCH REMOVAL MC SCH (21:02)
[2020-01-27] MEDS: MIRTAZAPINE 15 MG TABLET (FP) PO SCH (21:03)
[2020-01-28] MEDS: metFORMIN HCL 500 MG TABLET (FP) PO SCH ×2 (06:51→16:41)
[2020-01-28] MEDS: INSULIN SLIDING SCALE (NOVOLOG) 1 VIAL SQ SCH ×2 (06:52→16:42)
[2020-01-28] MEDS: LIDOCAINE 5% TOPICAL PATCH TP SCH (09:26)
[2020-01-28] MEDS: ARIPiprazole 5 MG TABLET PO SCH (09:26)
[2020-01-28] MEDS: POLYETHYLENE GLYCOL 3350 119 GM BTL PO SCH ×2 (09:26→21:38)
[2020-01-28] MEDS: PRENATAL VITAMINS W/ FOLIC ACID TABLET (FP) PO SCH (09:27)
[2020-01-28] MEDS: NICOTINE 7 MG/24 HOURS TOPICAL PATCH TD SCH (09:27)
[2020-01-28] MEDS: MELATONIN 5 MG TABLETS PO SCH (21:37)
[2020-01-28] MEDS: MIRTAZAPINE 15 MG TABLET (FP) PO SCH (21:37)
[2020-01-28] MEDS: THIAMINE HCL 100 MG TABLET (FP) PO SCH (21:37)
[2020-01-28] MEDS: LIDOCAINE PATCH REMOVAL MC SCH (21:38)
[2020-01-29] MEDS: metFORMIN HCL 500 MG TABLET (FP) PO SCH ×2 (06:32→16:21)
[2020-01-29] MEDS: INSULIN SLIDING SCALE (NOVOLOG) 1 VIAL SQ SCH ×2 (06:33→16:23)
[2020-01-29] MEDS: NICOTINE 7 MG/24 HOURS TOPICAL PATCH TD SCH (09:53)
[2020-01-29] MEDS: ARIPiprazole 5 MG TABLET PO SCH (09:53)
[2020-01-29] MEDS: LIDOCAINE 5% TOPICAL PATCH TP SCH (09:53)
[2020-01-29] MEDS: PRENATAL VITAMINS W/ FOLIC ACID TABLET (FP) PO SCH (09:53)
[2020-01-29] MEDS: POLYETHYLENE GLYCOL 3350 119 GM BTL PO SCH ×2 (09:54→21:02)
[2020-01-29] MEDS: THIAMINE HCL 100 MG TABLET (FP) PO SCH (21:01)
[2020-01-29] MEDS: MELATONIN 5 MG TABLETS PO SCH (21:01)
[2020-01-29] MEDS: LIDOCAINE PATCH REMOVAL MC SCH (21:02)
[2020-01-29] MEDS: MIRTAZAPINE 15 MG TABLET (FP) PO SCH (21:02)
[2020-01-30] MEDS: INSULIN SLIDING SCALE (NOVOLOG) 1 VIAL SQ SCH (06:22)
[2020-01-30] MEDS: metFORMIN HCL 500 MG TABLET (FP) PO SCH (06:22)
[2020-01-30 06:51] VITALS: BP 111/71; PULSE 91; TEMP 98
[2020-01-30] MEDS: PRENATAL VITAMINS W/ FOLIC ACID TABLET (FP) PO SCH (09:00)
[2020-01-30] MEDS: ARIPiprazole 5 MG TABLET PO SCH (09:00)
[2020-01-30] MEDS: LIDOCAINE 5% TOPICAL PATCH TP SCH (09:00)
[2020-01-30] MEDS: POLYETHYLENE GLYCOL 3350 119 GM BTL PO SCH (09:02)
[2020-01-30] MEDS: NICOTINE 7 MG/24 HOURS TOPICAL PATCH TD SCH (09:02)
== END 2020-01-30 09:25 | disposition home or self-care (01) | DRG 772 ==
LOC: YASAS 11:29 → Y3E 11:31
PROVIDERS: ADMIT Allergy & Immunology; ATTEND Allergy & Immunology
PROC: HZ42ZZZ Group Counseling for Substance Abuse Treatment, Cognitive-Behavioral (ICD-10-PCS; principal; 2020-01-02)
DX: F10.20 Alcohol dependence, uncomplicated (principal); F14.20 Cocaine dependence, uncomplicated; F12.20 Cannabis dependence, uncomplicated; F17.210 Nicotine dependence, cigarettes, uncomplicated; F19.282 Other psychoactive substance dependence with psychoactive substance-induced sleep disorder; F32.9 Major depressive disorder, single episode, unspecified; F90.9 Attention-deficit hyperactivity disorder, unspecified type; F43.10 Post-traumatic stress disorder, unspecified; J45.909 Unspecified asthma, uncomplicated; K59.00 Constipation, unspecified; H40.9 Unspecified glaucoma; Z86.19 Personal history of other infectious and parasitic diseases; M25.561 Pain in right knee; W19.XXXA Unspecified fall, initial encounter; Y93.89 Activity, other specified; Y92.238 Other place in hospital as the place of occurrence of the external cause; Y99.8 Other external cause status; S99.821A Other specified injuries of right foot, initial encounter; W22.8XXA Striking against or struck by other objects, initial encounter; Z62.810 Personal history of physical and sexual abuse in childhood; Z87.81 Personal history of (healed) traumatic fracture; Z98.51 Tubal ligation status; Z88.6 Allergy status to analgesic agent; Z59.0 Homelessness; Z56.0 Unemployment, unspecified
CPT/HCPCS: 72170-TC-FY; 73502-TC-RT-FY; 73552-TC-RT-FY; 73562-TC-RT-FY; 73590-TC-RT-FY; 82962; 99285-25; Q0162

== ENCOUNTER 2022-03-18 14:05 | Inpatient (IN) | payer OTHER ==
[2022-03-18 16:55] VITALS: BMI 22.2
[2022-03-18] MEDS ORDERED: NALOXONE HCL (KLOXXADO) 8 MG SPRAY NS PRN (17:56)
[2022-03-18] MEDS ORDERED: POLYETHYLENE GLYCOL (HEALTHYLAX) 3350 17 GM PACKET PO PRN (17:56)
[2022-03-18] MEDS ORDERED: MAG HYDROX/AL HYDROX/SIMETH 30 ML UNIT-DOSE CUP PO PRN (17:56)
[2022-03-18] MEDS ORDERED: hydrOXYzine PAMOATE 25 MG CAPSULE (FP) PO PRN (17:56)
[2022-03-18] MEDS ORDERED: MAGNESIUM HYDROX 2400MG/30ML ORAL SUSPENSION 30 ML CUP PO PRN (17:56)
[2022-03-18] MEDS ORDERED: BENZOCAINE/MENTHOL (CHLORASEPTIC ) LOZENGE MM PRN (17:56)
[2022-03-18] MEDS ORDERED: IBUPROFEN 600 MG TABLET (FP) PO PRN (17:56)
[2022-03-18] MEDS ORDERED: ACETAMINOPHEN 325 MG TABLET (FP) PO PRN ×2 (17:56)
[2022-03-18] MEDS ORDERED: LOPERAMIDE HCL 2 MG CAPSULE PO PRN (17:56)
[2022-03-18] MEDS ORDERED: DICYCLOMINE HCL 10 MG CAPSULE PO PRN (17:56)
[2022-03-18] MEDS ORDERED: NICOTINE 10 MG CARTRIDGE (INHALER) IH PRN (17:56)
[2022-03-18] MEDS ORDERED: ONDANSETRON *ODT* 4 MG TABLET SL PRN (17:56)
[2022-03-18] MEDS ORDERED: IBUPROFEN 400 MG TABLET (FP) PO PRN (17:56)
[2022-03-18] MEDS ORDERED: chlordiazePOXIDE HCL 25 MG CAPSULE PO PRN (17:56)
[2022-03-18] MEDS ORDERED: METHOCARBAMOL 500 MG TABLET PO PRN (17:56)
[2022-03-18] MEDS ORDERED: ALBUTEROL SO4 HFA INHALER IH PRN (18:01)
[2022-03-18] MEDS ORDERED: hydrOXYzine PAMOATE 25 MG CAPSULE (FP) PO ONE (18:34)
[2022-03-18] MEDS ORDERED: ACETAMINOPHEN 325 MG TABLET (FP) ONE (18:36)
[2022-03-18] MEDS ORDERED: chlordiazePOXIDE HCL 25 MG CAPSULE ONE (18:36)
[2022-03-18] MEDS: PANTOPRAZOLE 40 MG TABLET PO SCH (19:04)
[2022-03-18] MEDS: PRENATAL VITAMINS W/ FOLIC ACID TABLET (FP) PO SCH (19:05)
[2022-03-18] MEDS: TOLNAFTATE 1% CREAM 15 GM TUBE TP SCH (22:29)
[2022-03-18] MEDS: THIAMINE HCL 100 MG TABLET (FP) PO SCH (22:29)
[2022-03-18] MEDS: MELATONIN 5 MG TABLETS PO SCH (22:29)
[2022-03-18] MEDS: chlordiazePOXIDE HCL 25 MG CAPSULE PO SCH (22:30)
[2022-03-18] MEDS: CLOTRIMAZOLE 10 MG TROCHE PO SCH (23:33)
[2022-03-19] MEDS: chlordiazePOXIDE HCL 25 MG CAPSULE PO SCH ×4 (05:37→22:02)
[2022-03-19] MEDS: metFORMIN HCL 500 MG TABLET (FP) PO SCH ×2 (06:38→17:54)
[2022-03-19] MEDS: CLOTRIMAZOLE 10 MG TROCHE PO SCH ×5 (06:44→22:01)
[2022-03-19] MEDS: PRENATAL VITAMINS W/ FOLIC ACID TABLET (FP) PO SCH (10:24)
[2022-03-19] MEDS: PANTOPRAZOLE 40 MG TABLET PO SCH (10:24)
[2022-03-19] MEDS: ARIPiprazole 2 MG TABLET PO SCH (10:27)
[2022-03-19] MEDS: TOLNAFTATE 1% CREAM 15 GM TUBE TP SCH ×2 (10:28→22:02)
[2022-03-19 14:30] LABS: HEMATOCRIT 40.4 % (32.4-45.2); HEMOGLOBIN 13.3 GM/dL (10.7-15.3); MCH 26.5 pg (25.7-33.7); MEAN CELL VOLUME 80.2 fl (80-96); MEAN PLT VOLUME 8.7 fl (7.5-11.1); PLATELET COUNT 314 10^3/uL (134-434); RBC 5.04 M/mm3 (3.60-5.2); RDW 14.7 % (11.6-15.6)
[2022-03-19 15:07] LABS: BLOOD UREA NITROGEN 10.7 mg/dL (7-18)
[2022-03-19 15:10] LABS: CREATININE 0.7 mg/dL (0.55-1.3)
[2022-03-19 15:12] LABS: BILIRUBIN,TOTAL 0.3 mg/dL (0.2-1); TOT PROT 6.9 g/dl (6.4-8.2)
[2022-03-19 15:14] LABS: CALCIUM 9.4 mg/dL (8.5-10.1)
[2022-03-19] MEDS: THIAMINE HCL 100 MG TABLET (FP) PO SCH (22:01)
[2022-03-19] MEDS: MIRTAZAPINE 15 MG TABLET (FP) PO SCH (22:01)
[2022-03-19] MEDS: CLOTRIMAZOLE 1% VAGINAL CREAM WITH APPLICATOR 45 GM TUBE VG SCH (22:01)
[2022-03-19] MEDS: MELATONIN 5 MG TABLETS PO SCH (22:01)
[2022-03-20] MEDS: metFORMIN HCL 500 MG TABLET (FP) PO SCH ×2 (07:45→18:26)
[2022-03-20] MEDS: CLOTRIMAZOLE 10 MG TROCHE PO SCH ×5 (07:46→22:32)
[2022-03-20] MEDS: chlordiazePOXIDE HCL 25 MG CAPSULE PO SCH ×4 (07:46→22:33)
[2022-03-20] MEDS: TOLNAFTATE 1% CREAM 15 GM TUBE TP SCH ×2 (10:48→22:32)
[2022-03-20] MEDS: ARIPiprazole 2 MG TABLET PO SCH (10:48)
[2022-03-20] MEDS: PRENATAL VITAMINS W/ FOLIC ACID TABLET (FP) PO SCH (10:48)
[2022-03-20] MEDS: PANTOPRAZOLE 40 MG TABLET PO SCH (10:48)
[2022-03-20] MEDS: THIAMINE HCL 100 MG TABLET (FP) PO SCH (22:31)
[2022-03-20] MEDS: MIRTAZAPINE 15 MG TABLET (FP) PO SCH (22:31)
[2022-03-20] MEDS: MELATONIN 5 MG TABLETS PO SCH (22:32)
[2022-03-20] MEDS: CLOTRIMAZOLE 1% VAGINAL CREAM WITH APPLICATOR 45 GM TUBE VG SCH (22:35)
[2022-03-21] MEDS ORDERED: chlordiazePOXIDE HCL 10 MG CAPSULE PO PRN
[2022-03-21] MEDS: chlordiazePOXIDE HCL 10 MG CAPSULE PO SCH ×4 (06:26→22:28)
[2022-03-21] MEDS: CLOTRIMAZOLE 10 MG TROCHE PO SCH ×5 (06:26→22:27)
[2022-03-21] MEDS: metFORMIN HCL 500 MG TABLET (FP) PO SCH ×2 (06:26→17:52)
[2022-03-21] MEDS: PANTOPRAZOLE 40 MG TABLET PO SCH (11:09)
[2022-03-21] MEDS: PRENATAL VITAMINS W/ FOLIC ACID TABLET (FP) PO SCH (11:09)
[2022-03-21] MEDS: ARIPiprazole 2 MG TABLET PO SCH (11:09)
[2022-03-21] MEDS: TOLNAFTATE 1% CREAM 15 GM TUBE TP SCH ×2 (11:10→22:27)
[2022-03-21] MEDS: MIRTAZAPINE 15 MG TABLET (FP) PO SCH (22:25)
[2022-03-21] MEDS: THIAMINE HCL 100 MG TABLET (FP) PO SCH (22:25)
[2022-03-21] MEDS: MELATONIN 5 MG TABLETS PO SCH (22:26)
[2022-03-21] MEDS: CLOTRIMAZOLE 1% VAGINAL CREAM WITH APPLICATOR 45 GM TUBE VG SCH (22:26)
[2022-03-22] MEDS: metFORMIN HCL 500 MG TABLET (FP) PO SCH ×2 (06:41→17:56)
[2022-03-22] MEDS: CLOTRIMAZOLE 10 MG TROCHE PO SCH ×5 (06:41→22:26)
[2022-03-22] MEDS: chlordiazePOXIDE HCL 10 MG CAPSULE PO SCH ×2 (06:42→17:56)
[2022-03-22] MEDS: PANTOPRAZOLE 40 MG TABLET PO SCH (10:21)
[2022-03-22] MEDS: ARIPiprazole 2 MG TABLET PO SCH (10:21)
[2022-03-22] MEDS: TOLNAFTATE 1% CREAM 15 GM TUBE TP SCH ×2 (10:21→22:40)
[2022-03-22] MEDS: PRENATAL VITAMINS W/ FOLIC ACID TABLET (FP) PO SCH (10:21)
[2022-03-22] MEDS: MIRTAZAPINE 15 MG TABLET (FP) PO SCH (22:26)
[2022-03-22] MEDS: MELATONIN 5 MG TABLETS PO SCH (22:26)
[2022-03-22] MEDS: THIAMINE HCL 100 MG TABLET (FP) PO SCH (22:26)
[2022-03-22] MEDS: CLOTRIMAZOLE 1% VAGINAL CREAM WITH APPLICATOR 45 GM TUBE VG SCH (22:27)
[2022-03-23] MEDS ORDERED: chlordiazePOXIDE HCL 10 MG CAPSULE PO ONE (05:00)
[2022-03-23] MEDS: metFORMIN HCL 500 MG TABLET (FP) PO SCH ×2 (06:36→17:23)
[2022-03-23] MEDS: CLOTRIMAZOLE 10 MG TROCHE PO SCH ×5 (06:36→22:29)
[2022-03-23] MEDS: PANTOPRAZOLE 40 MG TABLET PO SCH (10:24)
[2022-03-23] MEDS: PRENATAL VITAMINS W/ FOLIC ACID TABLET (FP) PO SCH (10:25)
[2022-03-23] MEDS: TOLNAFTATE 1% CREAM 15 GM TUBE TP SCH ×2 (10:25→22:42)
[2022-03-23] MEDS: ARIPiprazole 2 MG TABLET PO SCH (10:25)
[2022-03-23] MEDS: THIAMINE HCL 100 MG TABLET (FP) PO SCH (22:29)
[2022-03-23] MEDS: MELATONIN 5 MG TABLETS PO SCH (22:30)
[2022-03-23] MEDS: MIRTAZAPINE 15 MG TABLET (FP) PO SCH (22:30)
[2022-03-23] MEDS: CLOTRIMAZOLE 1% VAGINAL CREAM WITH APPLICATOR 45 GM TUBE VG SCH (22:58)
[2022-03-24] MEDS: CLOTRIMAZOLE 10 MG TROCHE PO SCH ×2 (06:40→09:52)
[2022-03-24] MEDS: metFORMIN HCL 500 MG TABLET (FP) PO SCH (06:40)
[2022-03-24 09:01] VITALS: BP 110/60; PULSE 79; RESP 16; TEMP 97
[2022-03-24] MEDS: PANTOPRAZOLE 40 MG TABLET PO SCH (09:52)
[2022-03-24] MEDS: ARIPiprazole 2 MG TABLET PO SCH (09:52)
[2022-03-24] MEDS: PRENATAL VITAMINS W/ FOLIC ACID TABLET (FP) PO SCH (09:52)
[2022-03-24] MEDS: TOLNAFTATE 1% CREAM 15 GM TUBE TP SCH (09:53)
== END 2022-03-24 11:44 | disposition home or self-care (01) | DRG 774 ==
LOC: YASAS 14:05 → Y3N 18:25
PROVIDERS: ADMIT Allergy & Immunology; ATTEND Surgery
PROC: HZ2ZZZZ Detoxification Services for Substance Abuse Treatment (ICD-10-PCS; principal; 2022-03-18)
DX: F10.230 Alcohol dependence with withdrawal, uncomplicated (principal); F14.20 Cocaine dependence, uncomplicated; F12.20 Cannabis dependence, uncomplicated; F17.213 Nicotine dependence, cigarettes, with withdrawal; F19.282 Other psychoactive substance dependence with psychoactive substance-induced sleep disorder; F19.24 Other psychoactive substance dependence with psychoactive substance-induced mood disorder; F43.10 Post-traumatic stress disorder, unspecified; G47.00 Insomnia, unspecified; B35.0 Tinea barbae and tinea capitis; J45.20 Mild intermittent asthma, uncomplicated; M25.561 Pain in right knee; R76.8 Other specified abnormal immunological findings in serum; R73.03 Prediabetes; Z88.6 Allergy status to analgesic agent; Z99.89 Dependence on other enabling machines and devices
CPT/HCPCS: 36415; 71046-TC-FY; 80053; 81025; 82140; 82150; 82962; 85027; 86593; 86780; 93005; 93010; C9803-CS; U0003; U0005